=== PATIENT | female | born 1955 | race Caucasian/White ===

== ENCOUNTER 2023-12-20 08:20 | Outpatient (OUT) | payer BC, SELFPAY ==
--- NOTE | 2023-12-20 | MM_ITS ---
Patient Name: MICHELE NIX MR#: [id number] : 1955 Exam Date: 12/20/2023 Ordering Doctor: DR HAYDE DURAN M.D. RADIOLOGY REPORT PROCEDURE: MM TOMOSYNTHESIS SCREENING BI COMPARISON: MG MAMM AYUSH DIAG W CAD, 06/13/2021. MG MAMM SCREEN 3D AYUSH CAD, 06/20/2020. INDICATIONS: screening Calculator Name NCI Breast Cancer Risk Assessment Tool 5 Year Breast Cancer Risk Not Reported. Lifetime Breast Cancer Risk Not Reported. Personal Breast Cancer No Personal Ovarian Cancer No Treatments None Family Cancers None LOCATION: [facility] BREAST COMPOSITION: The breasts are heterogeneously dense,which may obscure small masses. FINDINGS: DIAGNOSTIC CATEGORY 2--BENIGN FINDING: RIGHT BREAST: No significant suspicious finding. No significant change has occurred. LEFT BREAST: No significant suspicious finding. Scattered benign-appearing calcifications are present. No significant change has occurred. RECOMMENDATIONS: ROUTINE MAMMOGRAM AND CLINICAL EVALUATION IN 12 MONTHS. PLEASE NOTE: A NORMAL MAMMOGRAM DOES NOT EXCLUDE THE POSSIBILITY OF BREAST CANCER. A CLINICALLY SUSPICIOUS PALPABLE LUMP SHOULD BE BIOPSIED. Dictated by: Rajeev Beyer M.D. on 12/23/2023 at 13:43 Approved by: Rajeev Beyer M.D. on 12/23/2023 at 14:18
== END 2023-12-20 08:21 | disposition home or self-care (01) ==
LOC: MAMMO 08:20
PROVIDERS: PCP Internal Medicine; Visit Provider Radiology Diagnostic Radiology
DX: Z12.31 Encounter for screening mammogram for malignant neoplasm of breast (principal)
CPT/HCPCS: 77063; 77067

== ENCOUNTER 2024-02-19 14:31 | Outpatient (OUT) | payer BC, SELFPAY ==
--- NOTE | 2024-02-18 14:45 | VEINCLINIC_ITS ---
Vital Signs 02/19/24 14:50 02/19/24 15:46 Height 64 ft Weight 68.039 kg BP 120/52 BP Location Left Brachial BP Position Sitting BP Cuff Size Adult BP Source Manual Cuff Respiration 16 Pulse 81 Pulse Source Monitor Pulse Oximetry (%) 98 Oxygen Delivery Method Room Air Comment The patient's blood pressure is elevated. Varicose Veins Patient is a 68 year old female in this day with c/o bilateral leg pain and edema. 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 Rajeev Olvera MD personally performed the services described in this documentation, as scribed by Tristian Connelly RN in my presence and it is both accurate and complete. ITristian RN, am scribing for, and in the presence of, Dr. Rajeev Beyer and in the presence of the patient. . knee: bilateral (patient has varicose veins to bilateral legs), calf: bilateral, ankle: bilateral and munoz: bilateral aching (left leg > right leg), burning (left leg only), cramping and dull 6 40 years Worsened in recent months: Yes standing and walking analgesics (Motrin), elevating extremities, compression stockings and exercise Reports muscle spasms of leg, edema and leg edema (left leg > right leg) History of lower extremity trauma: No Superficial thrombophlebitis: No Family history of varicose veins: yes (Patient's mother) Has patient had previous lower extremity venous surgery: No Patient has previously received the following treatment(s) for lower extremity varicose veins: Reports none Does patient have a history of : yes Does patient intend to have future pregnancies: no Has patient had lower extremity venous scan with relux testing: No Support hose used: Yes Problems walking or doing physical activity: Yes How does it affect you: pain as the work day extends Do you walk much: Yes Do you stand much: Yes Review of Systems ROS Narrative Rajeev Olvera MD personally performed the services described in this documentation, as scribed by Tristian Connelly RN in my presence and it is both accurate and complete. ITristian RN, am scribing for, and in the presence of, Dr. Rajeev Beyer and in the presence of the patient. Status of ROS 10 or more systems reviewed and unremark able except as noted in history and below Cardiovascular Reports: edema Integumentary/Breast Reports: itching and changes in skin color [facility] Medical History (Updated 02/19/24 @ 15:04 by Tristian Connelly) Back injuries ?S39.92XA - Unspecified injury of lower back, initial encounter (ICD-10) Hypercholesteremia ?E78.00 - Pure hypercholesterolemia, unspecified (ICD-10) Varicose veins of lower extremity with pain ?I83.819 - Varicose veins of unspecified lower extremity with pain (ICD-10) Surgical History H/O spinal fusion ?Z98.1 - Arthrodesis status (ICD-10) Family History (Updated 02/19/24 @ 15:08 by Tristian Connelly) Mother Family history of myocardial infarction Other Family history of cancer Family history of diabetes mellitus Family history of hypertension Varicose veins of bilateral lower extremities with pain Social History (Updated 02/19/24 @ 15:09 by Tristian Connelly) Within the past year, how often did you have a drink containing alcohol: never Score interpretation: A score less than 3 is consistent with normal alcohol consumption. Smoking status: Never smoker Non-prescribed substance use: denies use Meds Home Medications and Allergies Home Medications ?Medication ?Instructions ?Recorded ?Confirmed ?Type ibuprofen 100 mg tablet 200 mg PO TID-QID PRN pain 02/19/24 02/19/24 History Allergies Allergy/AdvReac Type Severity Reaction Status Date / Time codeine Allergy Vomiting Verified 02/19/24 15:11 morphine Allergy Vomiting Verified 02/19/24 15:11 Exam Narrative Exam Narrative: Rajeev Olvera MD personally performed the services described in this documentation, as scribed by Tristian Connelly RN in my presence and it is both accurate and complete. ITristian RN, am scribing for, and in the presence of, Dr. Rajeev Beyer and in the presence of the patient. Constitutional Documenting provider has reviewed patient's vital signs: yes Common normals: oriented x3 Cardio Peripheral pulses: dorsalis pedis pulses present Extremity Common normals: normal capillary refill General: edema Right lower extremity: lower leg Right lower leg: inspection and palpation Left lower extremity: lower leg Left lower leg: inspection and palpation Neuro Common normals: oriented x3 Assessment and Plan Assessment and Plan (1) Varicose veins of lower extremity with pain: Plan Dr. Beyer examines patient and reviews results of bilateral leg reflux u/s. Patient and Dr. Beyer create plan of care. Bilateral leg reflux u/s reveals bilateral leg great saphenous insufficiency with associated dilation, branch saphaneous truncal varicosities. Plan is for EVLT's of bilateral GSV starting with left GSV, followed by microfoam chemical ablation bilateral leg branch saphenous varicosities and lastly, sclerotherapy bilateral leg pre-hemorrhagic, reticular spider veins. IRajeev MD personally performed the services described in this documentation, as scribed by Tristian Connelly RN in my presence and it is both accurate and complete. ITristian RN, am scribing for, and in the presence of, Dr. Rajeev Beyer and in the presence of the patient.
--- NOTE | 2024-02-18 15:17 | W.VEIN ---
Discharge Plan Discharge Disposition: Home, Self-Care Outpatient Diagnostics: Endovenous Ablation 1VeinLT (Routine) Timeframe: 2 Weeks Facility: [facility] - Location: Vein Center Ordered By: Pierre Garrison VC Facility EST Comprehensive (Routine) Timeframe: 2 Weeks Facility: [facility] - Location: Vein Center Ordered By: Pierre Garrison VC EXT Venous Reflux AYUSH LMTD (Routine) Timeframe: 2 Weeks Facility: [facility] - Location: Vein Center Ordered By: Pierre Garrison Follow Up Appointments: Patient will call to move forward with vein after getting eye surgery in March of 2024 Plan of Treatment: EVLT of bilateral GSV's followed by bilateral leg microfoam chemical ablation branch saphenous varicosities, and lastly sclerotherapy bilateral leg Print Language: Kazakh Discharge Date/Time: 02/19/24 14:32
--- NOTE | 2024-02-19 14:38 | VEIN_ITS ---
Patient Name: MICHELE NIX MR#: [id number] : 1955 Exam Date: 02/19/2024 Ordering Doctor: DR HAYDE DURNA M.D. RADIOLOGY REPORT PROCEDURE: [facility] FACILITY EST COMPREHENSIVE VEIN CENTER - OFFICE VISIT INITIAL COMPARISON: None. PROGRESS NOTES: [age] year old female who presents with a 40 year history of lower extremity swelling, aching, cramping. The patient's left leg symptoms are worse than the right. There has been a progression of symptoms over past several months. This increases with prolonged standing. The patient describes an improvement with compression stockings, exercise, elevation, and fyvp-hcc-wilimim medication. The patient denies any signs and symptoms to suggest arterial ischemia. The patient describes a family history varicose veins on paternal side. The patient has drinking and smoking history of : None. Patient has a past medical history significant for varicose veins, hypercholesterolemia, prior back injury. The patient denies a history of deep venous thrombus or pulmonary embolus. See separate history and physical for medication list. No prior treatment for varicose or spider veins. Current use of compression stockings. After review of nurse notes, history and physical exam I discussed at length the pathophysiology of venous hypertension and possible treatments, therapies and strategies available. We discussed at length the importance of elevating the lower extremities above the level of the heart, increased physical activity and compression stocking use. Ultrasound venous reflux study performed today was discussed at length with the patient. The report demonstrates abnormally dilated and incompetent great saphenous veins bilaterally with associated incompetent branch saphenous varicosities. PHYSICAL EXAM: The right leg demonstrates a few dilated varicosities, scattered spider veins, no ulceration, mild edema, no skin discoloration. The left leg demonstrates a few dilated varicosities, scattered spider veins, no ulceration, moderate edema, no skin discoloration. Both thighs, legs and feet were symmetrically warm to the touch. Good posterior tibial and dorsalis pedis pulses were present bilaterally. VEIN/VC Facility EST Comprehensive IMPRESSION: 1. Bilateral lower extremity venous insufficiency 2. Bilateral lower extremity varicose veins 3. Moderate lower extremity subcutaneous edema 4. No flow significant arterial disease 5. CEAP: C3, EC, , FL PLAN: 1. Continued use of compression stockings 2. Elevated legs and increased physical activity symptomatic relief 3. Endovenous laser ablation of left great saphenous vein, right great saphenous vein. 4. Microfoam chemical ablation of bilateral branch saphenous varicosities. 5. Bilateral sclerotherapy. Nurse notes, history and physical were reviewed and confirmed, see attached forms. The nurse was present throughout the physical exam and consultation Dictated by: Rajeev Beyer M.D. on 02/19/2024 at 16:26 Approved by: Rajeev Beyer M.D. on 02/19/2024 at 16:31
--- NOTE | 2024-02-19 14:38 | VEIN_ITS ---
Patient Name: MICHELE NIX MR#: [id number] : 1955 Exam Date: 02/19/2024 Ordering Doctor: DR HAYDE DURAN M.D. RADIOLOGY REPORT PROCEDURE: VC EXT VENOUS REFLUX AYUSH LMTD COMPARISON: None. INDICATIONS: I83.813 Bilateral painful varicose veins TECHNIQUE: Duplex imaging of the lower extremity to assess the deep and superficial venous system for the presence of deep or superficial venous incompetence and to document the location and severity of disease. The study includes evaluation of the great saphenous vein (GSV), anterior accessory saphenous vein (AASV) and small saphenous vein (SSV). Patient scanned in reverse Trendelenburg and standing. FINDINGS: RIGHT LOWER EXTREMITY: Saphenofemoral Junction Reflux: Yes 6.5mm 2.0 sec GSV: Diam (mm) Reflux/ Time (sec) Proximal Thigh 5.7 Yes 2.0 Mid Thigh 4.2 Yes 0.5 Distal Thigh 3.6 Yes 1.1 Prox Calf 3.2 Yes 0.6 Mid Calf 2.1 Yes 0.9 Saphenopopliteal Junction Reflux: 2.2mm Yes 1.1 SSV: Proximal Calf 1.7 No Mid Calf 2.1 No AASV: Proximal Thigh Mid Thigh Distal Thigh Thrombi: No acute or chronic thrombus visualized Compressibility: Normal Flow: Normal Preforator: Dist/med calf 3.1mm with 0s reflux. Tech Note: Incompetent GSV. Patent varicose vein mid/med calf 3.5mm with 1.0s reflux. Patent varicose vein medial knee 3.3mm with 0s reflux. Patent varicose vein prox/med thigh 2.9mm with 1.2s reflux. LEFT LOWER EXTREMITY: Saphenofemoral Junction Reflux: Yes 7.9 mm 1.6 sec GSV: Diam (mm) Reflux/Time (sec) Proximal Thigh 6.9 Yes 1.2 Mid Thigh 3.9 Yes 1.0 Distal Thigh 3.8 Yes 1.2 Prox Calf 3.8 No Mid Calf 1.5 No Saphenopopliteal Junction Relux: 2.6 mm No SSV: Proximal Calf 0.8 N/A Mid Calf N/A AASV: Not present Proximal Thigh Mid Thigh Distal Thigh Thrombi: No acute or chronic thrombus visualized Compressibility: Normal Flow: Normal Credit Support Counselor: No perforators visualized. Tech Note: Incompetent GSV. Patent varicose vein medial knee 3.5mm with 1.1s reflux. CONCLUSION: 1. 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 Dictated by: Rajeev Beyer M.D. on 02/19/2024 at 15:39 Approved by: Rajeev Beyer M.D. on 02/19/2024 at 16:25
[2024-02-19 14:50] VITALS: BP 120/52; PULSE 81; O2SAT 98
== END 2024-02-19 14:32 | disposition home or self-care (01) ==
PROVIDERS: PCP Internal Medicine; Visit Provider Radiology Diagnostic Radiology
DX: I83.813 Varicose veins of bilateral lower extremities with pain (principal)
CPT/HCPCS: 93970; G0463

== ENCOUNTER 2024-11-23 10:32 | Outpatient (OUT) | payer BC, SELFPAY ==
--- NOTE | 2024-11-23 10:55 | PC.NURSE ---
Nursing Note Cardiac Stress Test Reviewed: Medication, allergies and patient history reviewed. Stress Test: [X ] Patient tolerated stress test well. [ ] Patient unable to tolerate walking on treadmill. Switched to Lexiscan stress test. [ ] No chest pain noted per patient [x ] Chest pain that resolved prior to leaving stress lab. [ x] No dyspnea noted. [ ] Dyspnea that resolved prior to leaving stress lab. [ x] Patient left stress lab asymptomatic and hemodynamically stable. [ ] Patient taken to the Emergency Room due to non-resolving symptoms following stress test. [ x] Patient achieved target heart rate. [ ] Patient unable to achieve target heart rate. [ ] Aminophylline administered as reversal agent to Lexiscan (Regadenoson). [ ] Nitro administered. Nursing Comments: Patient reported chest pressure during the exam. She states this is the same discomfort that has been having that has caused her to have this test. It resolved prior to leaving the stress lab
--- NOTE | 2024-11-24 12:36 | P.STRESS_ITS ---
Stress Test Stress Test Allergies Allergy/AdvReac Type Severity Reaction Status Date / Time codeine Allergy Vomiting Verified 02/19/24 15:11 morphine Allergy Vomiting Verified 02/19/24 15:11 Requesting physician: Mike Terry Procedure: This was a Treadmill stress test performed at the [facility] on 11/23/2024. The patient was attached to electrocardiographic monitoring. Baseline vital signs and ECG were obtained. The patient exercised on the treadmill according to the César protocol. Exercise time was 4 minutes and 33 seconds and the patient reached stage II of the César protocol and achieved 7 METS. The test was stopped due to target heart rate being achieved. 66 bpm and peak heart rate was 131 bpm representing 87% of maximum predicted heart rate. Resting blood pressure was 127/72 and peak blood pressure was 160/80. General Information: Reason for Stress Test: Chest pain. Cardiac History and Risk Factors: Hyperlipidemia. Resting 12 - Lead Electrocardiogram: Normal sinus rhythm, nonspecific ST segment abnormality. Stress Test: Protocol: César protocol. Exercise Capacity: Good. Blood Pressure Response: Elevated resting blood pressure, hypertensive response to exercise. Rhythm: Sinus rhythm with occasional PVCs. ST - Response: Significant ST segment depressions up to 3 mm seen in leads II, 3, aVF, V4, V5, V6. Patient Response: Chest pain with exercise that resolved at rest. Interpretation: 1. Positive treadmill exercise stress test for exercise-induced ischemic ST changes. 2. Adorno treadmill score of -14.5 is associated with high risk for long-term cardiac events.
== END 2024-11-23 10:33 | disposition home or self-care (01) ==
LOC: CARD 10:34
PROVIDERS: PCP Family Medicine; Visit Provider Family Medicine
DX: R07.9 Chest pain, unspecified (principal); R94.8 Abnormal results of function studies of other organs and systems
CPT/HCPCS: 93017

== ENCOUNTER 2025-04-08 07:31 | Outpatient (OUT) | payer BC, SELFPAY ==
--- OUTSIDE RECORDS SUMMARY | 2024-12-09 10:06 | XMS_ITS ---
Author Organization [facility] [place] Address [address] [place] [address] Care Team Providers Care Entry Level Finance Name Role Phone Emil Terry Primary Care Provider [phone] REASON FOR VISIT TCM- CALL FRIDAY Encounters Encounter Location Date Provider Diagnosis [facility] [address] [place] [phone] 12/09/2024 Emil Terry Plan Of Treatment Next Appt Details Provider Name:Emil Booker Harrison, 02:30:00 PM, [address] [place], [address], Progress Notes * BOYD, Shruthi LDOB:[birth year] (69 yo F)Acc No.[id number]:12/09/2024 Patient: Shruthi MONTOYA :1955 A ge:69 Y S ex:Female [address]:[address] [place] [address] [address] , [place], [address] * true * Date: Generated for Jean Claude linares/Shellie/eTransmitting on: 0 04/08/2025 07:33 AM EDT
--- OUTSIDE RECORDS SUMMARY | 2024-12-15 06:30 | XMS_ITS ---
Author Organization [facility] [place] Address [address] [place] [address] Care Team Providers Care Pigment Furnace Tender Name Role Phone Emil Terry Primary Care Provider [phone] Allergies Allergen (clinical drug ingredient) Drug/Non Drug Allergy documented on EMR Reaction Allergy Type Onset Date Status codeine Codeine vomiting Drug Allergy Active doxycycline Doxycycline Unknown Drug Allergy Act madeleine REASON FOR VISIT TCM d/c rehab [facility] on 12/10, Patient had triple bypass on 11/26/24- was seeing Dr Bullock and [facility], Was having pain in the RLQ last night-resolved today- thinks may be from coughing- when inAC and eating anything with milk makes he cough Medications Medication SIG (Take, Route, Frequency, Duration) Notes Start Date End Date Status Tylenol Extra strength Activ e Protonix 40 MG 1 tablet Orally Once a day for 30 days 07/23/2024 Active Cetirizine HCl 10 MG 1 tablet Orally Once a day for 30 days 12/15/2024 Active Metoclopramide HCl 10 MG 1/2 tablet befo re meals Orally four times daily 12/15/2024 Active Hyoscyamine Sulfate 0.125 MG 1-2 tabs SL SL every 4 hrs PRN abd pain PRN 07/23/2024 Active Metoprolol Tartrate 25 MG 1/2 tablet with food Orally Twice a day 12/15/2024 Active Clopidogrel Bisulfate 75 MG 1 tablet Orally Once a day 12/15/2024 Active Benzonatate 100 MG 1 capsule as needed Orally Three times a day 12/15/2024 Active Aspirin 81 MG 1 tablet Orally Once a day Active Social History Tobacco Use: Social History Observation Description Date Details (start date - stop date) Never Smoker NA - NA Tobacco Use/Smoking Question Answer Notes Patient is a nonsmoker Problems Problem Type SNOMED Code ICD Code Onset Dates Problem Status W/U Status Risk Notes Problem Coronary artery disease (16296361) Coronary artery disease (I25.10) Active confirmed Vital Signs Weight 140.6 lbs 12/15/2024 Height 64 in 12/15/2024 Blood pressure systolic 122 mm Hg 12/16/19 25 Blood pressure diastolic 70 mm Hg 025 BMI 24.13 kg/m2 12/15/2024 Encounters Encounter Location Date Provider Diagnosis [facility] [address] [place] [address] 12/15/2024 Emil Terry Coronary artery disease I25.10 and Status post coronary artery bypass grafting Z95.1 Assessments Encounter Date Diagnosis (ICD Code) Assessment Notes Treatment Notes Treatment Clinical Notes Section Notes 12/15/2024 Coronary artery disease (ICD-10 - I25.10) 12/15/2024 Status post coronary artery bypass grafting (ICD-10 - Z95.1) Plan Of Treatment Medication Medication Name Sig Start Date Stop Date Notes Cetirizine HCl 10 MG 1 tablet Orally Onc e a day for 30 days 12/15/2024 Next Appt Details Provider Name:Emil Terry, 02:30:00 PM, [address] [place], [address], Progress Notes * Shruthi NIX LDOB:[birth year] (69 yo F)Acc No.[id number]:12/15/2024 Progress Note Patient: Shruthi MONTOYA Provider: Richa Terry ([facility])MD :1955 A ge:69 Y S ex:Female Date:12/15/2024 Address:[address] [place], [place] [id number] Check In:10:19 AM ESTCheck O ut:11:37 AM EST Subjective: * Chief Complaints: * T CM d/c rehab [facility] on 12/10Patient had triple bypass on 11/26/24- was seeing Dr Bullock and [facility] having pain in the RLQ last night-resolved today- thinks may be from coughing- when in AC and eating anything with milk makes he cough * HPI: G eneral: sp byupass - doing home exercises. * ROS: E ENT: hearing changes d enies. v isual changes d enies.?non-healing mouth sores d enies. s wollen glands or neck lumps d enies. h oarseness d enies. s ore throat d enies. d ifficulty swallowing d enies. n ose bleeds d enies. n jazmin congestion d enies. e ar ache d enies. e ar discharge?denies. r inging in ears d enies. l ight sensitivity d enies. e ye pain d enies. b lurring d enies. e ye irritation d enies. d ouble vision d enies.?vision loss d enies. G eneral/Constitutional: Sweats: D enies. F atigue d enies. S leep problems d enies. A norexia d enies. M alaise d enies. W eight loss d enies.?Fatigue or Weakness d enies. F ever or Chills d enies. C ardiovascular: Shortness of Breath w/lying flat d enies. L ightheadedness/dizziness d enies. C hest tightness/ heavy pressure d enies. S welling of legs, ankles, or feet d enies. W aking up with shortness of breath d enies. C hest pain denies. P alpitations d enies. W eight gain d enies. R espiratory: Chronic or frequent cough d enies. C oughing up blood?denies. D ifficulty breathing d enies. P roductive cough d enies. S noring?denies. S hortness of breath that awakens from sleep (PND) d enies. C hest pain d enies. S putum production d enies. W heezing d enies. M usculoskeletal: Joint pain d enies. J oint Fluid d enies. B ack pain d enies. K nee pain d enies. N gladys pain d enies. J oint Stiffness d enies. M uscle cramps d enies. W eakness of muscles d enies. A rthritis d enies. M uscle aches d enies. P ain in shoulder(s) d enies. S wollen joints d enies. * Active Problem List M20.42 Hammertoe of left fo ot Modified On:12/03/2022W/U Status:confirmed K21.9 GERD (gastroesophage al reflux disease) Modified On:07/23/2024W/U Status:confirmed R10.9 Abdominal pain Modified On:07/23/2024/U Status:confirmed I25.10 Coronary artery dise ase Modified On:12/15/2024W/U Status:confirmed * Medical History: * Surgical History: b ack surgery eyelid lift Coronary Angiogrpahy- IABP insertion * Hospitalization/Major Diagno stic Procedure: D enies Past Hospitalization * Family History: F ather: , diagnosed with Unspecified heart disease. B rother(s): alive, diagnosed with Unspecified heart disease. S ister(s): alive, breast cancer, diagnosed with Other malignant neoplasm of unspecified site. S on(s): alive, hyperlipidemia. M other: diagnosed with Unspecified heart disease. 1 brother(s) , 2 sister(s) . 1 son(s) . . * Social History: T obacco Use: T obacco Use/Smoking P atient is a n onsmoker * Medications: T akingAspirin 81 MG Tablet Chewable 1 tablet Orally Once a day Benzonatate 100 MG Capsule 1 capsule as needed Orally Three times a day Clopidogrel Bisulfate 75 MG Tablet 1 tablet Orally Once a day Hyoscyamine Sulfate 0.125 MG Tablet 1-2 tabs SL SL every 4 hrs PRN abd pain , Notes to Pharmacist: PRNMetoclopramide HCl 10 MG Tablet 1/2 tablet before meals Orally four times daily Metoprolol Tartrate 25 MG Tablet 1/2 tablet with food Orally Twice a day Protonix(Pantoprazole Sodium) 40 MG Tablet Delayed Release 1 tablet Orally Once a day Tylenol , Notes to Pharmacist: Extra strengthTaking Aspirin 81 MG Tablet Chewable 1 tablet Orally Once a day Taking Benzonatate 100 MG Capsule 1 capsule as needed Orally Three times a day Taking Clopidogrel Bisulfate 75 MG Tablet 1 tablet Orally Once a day Taking Hyoscyamine Sulfate 0.125 MG Tablet 1-2 tabs SL SL every 4 hrs PRN abd pain , Notes to Pharmacist: PRNTaking Metoclopramide HCl 10 MG Tablet 1/2 tablet before meals Orally four times daily Taking Metoprolol Tartrate 25 MG Tablet 1/2 tablet with food Orally Twice a day Taking Protonix(Pantoprazole Sodium) 40 MG Tablet Delayed Release 1 tablet Orally Once a day Taking Tylenol , Notes to Pharmacist: Extra strengthDiscontinuedIbuprofen 600 MG Tablet 1 tablet with food or milk as needed Orally every 6 hrs prn pain Sertraline HCl 25 MG Tablet 1 tablet Orally Once a day Medication List reviewed and reconciled with the patientDiscontinued Ibuprofen 600 MG Tablet 1 tablet with food or milk as needed Orally every 6 hrs prn pain Discontinued Sertraline HCl 25 MG Tablet 1 tablet Orally Once a day Medication List reviewed and reconciled with the patient * Allergies: C odeine: vomiting - AllergyDoxycyclineno[Allergies Verified] Objective: * Vitals: W t:140.6lbs, Ht: 64 in, BP:122/70mm Hg, BMI:24.13Index, Ht-cm: 162.56 cm, Wt-k.78 kg. * Examination: P hysical Exam: GENERAL: w ell developed, well nourished, in no acute distress. HEAD: n ormocephalic/atraumatic. EYES: p upils equal, round and reactive to light, conjunctivae and sclerae normal. EARS: n o deformity or lesion of external ear, canals and TM appear normal bilaterally, TM's intact, not inflamed with normal light reflex, hearing grossly normal to conversational speech. NOSE: n o deformity, discharge, inflammation, or lesions.? MOUTH: m ucous membranes moist, normal oropharynx and posterior pharynx without lesions or exudates, tongue normal, dentition normal. NECK: n gladys supple, no masses or palpable cervical nodes, trachea midline, thyroid without nodules, masses, tenderness, or enlargement. CHEST: n o chest wall deformity, no chest wall tenderness.? LUNGS: n ormal respiratory effort and clear to auscultation, no wheezes, rales, or rhonchi, good air exchange. CARDIO: r egular rate and rhythm, normal S1 and S2, nor murmur, rub, or gallop. PULSES: n ormal capillary refill. ABDOMEN: s oft, non-distended, non-tender, no masses. MUSCULOSKELETAL: n o deformity or scoliosis noted, normal range of motion, joints normal, no erythema, edema, effusion, or ecchymosis. EXTREMITY: n o clubbing, cyanosis, edema, or deformity with normal ROM in both upper and lower bilateral extremities. NEUROLOGIC: g rossly normal. SKIN: n o rashes, ulcerations, or suspicious lesions. LYMPH NODES: n o cervical adenopathy, nodes normal. MENTAL STATUS: a lert and oriented x3, normal mood and affect. Assessment: * Assessment: 1. C oronary artery disease - I25.10 (Primary) 2 . S tatus post coronary artery bypass grafting - Z95.1 Plan: * Treatment: * Procedure Codes: * * Sign off status: Completed Visit Status: C HK (Check Out) true * Provider: Richa Terry ([facility])MD Date: 0 12/15/2024 Generated for Printi ng/Fagabinog/eTransmitting on: 0 04/08/2025 07:34 AM EDT History and Physical Notes * HPI (History of Present Illness) Category Sub-Category Detail Notes Category Not es General sp byupass - doing home exercises Examination Category Sub-Category Detail Notes Category Not es Physical Exam GENERAL: well developed, well nourished, in no acute distress HEAD: normocephalic/atraum atic EYES: pupils equal, round and reactive to light, conjunctivae and sclerae normal EARS: no deformity or lesi on of external ear, canals and TM appear normal bilaterally, TM's intact, not inflamed with normal light reflex, hearing grossly normal to conversational speech NOSE: no deformity, discha rge, inflammation, or lesions MOUTH: mucous membranes marcel[address] st, normal oropharynx and posterior pharynx without lesions or exudates, tongue normal, dentition normal NECK: neck supple, no mass es or palpable cervical nodes, trachea midline, thyroid without nodules, masses, tenderness, or enlargement CHEST: no chest wall deform ity, no chest wall tenderness LUNGS: normal respiratory e ffort and clear to auscultation, no wheezes, rales, or rhonchi, good air exchange CARDIO: regular rate and rhy thm, normal S1 and S2, nor murmur, rub, or gallop PULSES: normal capillary ref ill ABDOMEN: soft, non-distended, non-tender, no masses RECTAL: MUSCULOSKELETAL: no deformity or scol iosis noted, normal range of motion, joints normal, no erythema, edema, effusion, or ecchymosis EXTREMITY: no clubbing, cyanosi s, edema, or deformity with normal ROM in both upper and lower bilateral extremities NEUROLOGIC: grossly normal SKIN: no rashes, ulceratio ns, or suspicious lesions LYMPH NODES: no cervical adenopat hy, nodes normal MENTAL STATUS: alert and oriented x 3, normal mood and affect
--- OUTSIDE RECORDS SUMMARY | 2024-12-15 07:30 | XMS_ITS ---
Author Organization [facility] in [place] Address [address] [place] [address] Care Team Providers Care Parts Assembler Name Role Phone Emil Terry Primary Care Provider REASON FOR VISIT cholesterol medication Medications Medication SIG (Take, Route, Frequency, Duration) Notes Start Date End Date Status Atorvastatin Calcium 20 MG 1 tablet Oral ly Once a day for 30 days 12/17/2024 Active Encounters Encounter Location Date Provider Diagnosis [facility] [address] [place] [address] 12/15/2024 Emil Terry Plan Of Treatment Medication Medication Name Sig Start Date Stop Date Notes Atorvastatin Calcium 20 MG 1 tablet Oral ly Once a day for 30 days 12/17/2024 Next Appt Details Provider Name:Emil Terry, 02:30:00 PM, [address] [place], [address], Progress Notes * BOYD, Shruthi LDOB:[birth year] (69 yo F)Acc No.[id number]:12/15/2024 Patient: Shruthi MONTOYA :1955 A ge:69 Y S ex:Female Address:[address] [place] [address] [address] , [place], [address] * Refills Start Atorvastatin Calcium Tablet, 20 MG, Orally, 60, 1 tablet, Once a day, 30 days, Refills=11 * true * Date: Generated for Jean Claude linares/Shellie/Marioitting on: 0 04/08/2025 07:34 AM EDT
--- OUTSIDE RECORDS SUMMARY | 2025-02-02 07:18 | XMS_ITS ---
Author Organization [facility] in [place] Address [address] [place] [address] Care Team Providers Care Engineering Consultant Name Role Phone Emil Terry Primary Care Provider REASON FOR VISIT FYI Encounters Encounter Location Date Provider Diagnosis [facility] [address] [place] [address] 02/02/2025 Emil Terry Plan Of Treatment Next Appt Details Provider Name:Emil Booker Harrison, 02:30:00 PM, [address] [place], [address], Progress Notes * BOYD, Shruthi LDOB:[birth year] (69 yo F)Acc No.[id number]:02/02/2025 Patient: Shruthi MONTOYA :1955 A ge:69 Y S ex:Female Address:[address] [place] [address] , [place], [address] * true * Date: Generated for Printi ng/Faxing/eTransmitting on: 0 04/08/2025 07:34 AM EDT
--- OUTSIDE RECORDS SUMMARY | 2025-04-06 10:00 | XMS_ITS ---
Author Organization [facility] [place] Address [address] [place] [address] Care Team Providers Care Legger Press Operator Name Role Phone Emil Terry Primary Care Provider Allergies Allergen (clinical drug ingredient) Drug/Non Drug Allergy documented on EMR Reaction Allergy Type Onset Date Status codeine Codeine vomiting Drug Allergy Active doxycycline Doxycycline Unknown Drug Allergy Act madeleine REASON FOR VISIT 4 month f/u Medications Medication SIG (Take, Route, Frequency, Duration) Notes Start Date End Date Status Aspirin 81 MG 1 tablet Orally Once a day Active Atorvastatin Calcium 20 MG 1 tablet Orally Once a day for 30 days 12/17/2024 Active Clopidogrel Bisulfate 75 MG 1 tablet Orally Once a day 12/15/2024 Active Cetirizine HCl 10 MG 1 tablet Orally Once a day for 30 days 12/15/2024 Active Cyclobenzaprine HCl 10 MG 1 tablet Orally tid for 30 days 04/06/2025 Active Tylenol Extra strength Activ e Protonix 40 MG 1 tablet Orally Once a day for 30 days 07/23/2024 Active Metoprolol Tartrate 25 MG 1 tablet with food Orally Twice a day 12/15/2024 Active Ibuprofen 600 MG 1 tablet with food or milk as needed Orally every 8 hrs 04/06/2025 Active Hyoscyamine Sulfate 0.125 MG 1-2 tabs SL SL every 4 hrs PRN abd pain PRN 07/23/2024 Active Social History Tobacco Use: Social History Observation Description Date Details (start date - stop date) Never Smoker NA - NA Tobacco Use/Smoking Question Answer Notes Patient is a nonsmoker AUDIT-C (Standard) Question Answer Notes Did you have a drink containing alcohol in the p ast year? No Points 0 Interpretation Negative Problems Problem Type SNOMED Code ICD Code Onset Dates Problem Status W/U Status Risk Notes Problem Hypertension (02512322) Hypertension (I10) Active confirmed Vital Signs Weight 139.0 lbs 04/06/2025 Height 64 in 04/06/2025 Blood pressure systolic 144 mm Hg 04/06/20 25 Blood pressure diastolic 82 mm Hg 025 BMI 23.86 kg/m2 04/06/2025 Encounters Encounter Location Date Provider Diagnosis [facility] [address] [place] [address] 04/06/2025 Emil Terry GERD (gastroesophage al reflux disease) K21.9 ; Coronary artery disease I25.10 and Hypertension I10 Assessments Encounter Date Diagnosis (ICD Code) Assessment Notes Treatment Notes Treatment Clinical Notes Section Notes 04/06/2025 GERD (gastroesophageal reflux disease) (ICD-10 - K21.9) 04/06/2025 Coronary artery disease (ICD-10 - I25.10) 04/06/2025 Hypertension (ICD-10 - I10) Plan Of Treatment Medication Medication Name Sig Start Date Stop Date Notes Cyclobenzaprine HCl 10 MG 1 tablet Orally tid for 30 days 04/06/2025 Ibuprofen 600 MG 1 tablet with food o r milk as needed Orally every 8 hrs 04/06/2025 Next Appt Details Provider Name:Emil Terry, 02:30:00 PM, [address] [place], [address], Progress Notes * BOYDShruthi LDOB:[birth year] (69 yo F)Acc No.[id number]:04/06/2025 Progress Note Patient: Shruthi MONTOYA Provider: Richa Terry ([facility])MD :1955 A ge:69 Y S ex:Female Date:04/06/2025 Address:[address] [place], [place] [id number] Check In:01:57 PM ESTCheck O ut:02:43 PM EST Subjective: * Chief Complaints: * 4 month f/u * HPI: G eneral: HTN - stable at home GERD - meds helping back to work CAD - reviewed meds - Repatha. * ROS: E ENT: hearing changes d [...] M20.42 Hammertoe of left fo ot Modified On:12/03/2022/U Status:confirmed K21.9 GERD (gastroesophage al reflux disease) Modified On:07/23/2024/U Status:confirmed R10.9 Abdominal pain Modified On:07/23/2024/U Status:confirmed I25.10 Coronary artery dise ase Modified On:12/15/2024/U Status:confirmed I10 Hypertension Modified On:04/06/2025/U Status:confirmed * Medical History: * Surgical History: b ack surgery eyelid lift Coronary Angiogrpahy- IABP insertion CABG x3 * Hospitalization/Major Diagno stic Procedure: D enies [...] Use/Smoking P atient is a n onsmoker D rug/Alcohol: A EMILY-C (Standard) D id you have a drink containing alcohol in the past year? N o P oints 0 I nterpretation N egative * Medications: T akingAspirin 81 MG Tablet Chewable 1 tablet Orally Once a day Atorvastatin Calcium 20 MG Tablet 1 tablet Orally Once a day Cetirizine HCl 10 MG Tablet 1 tablet Orally Once a day Clopidogrel Bisulfate 75 MG Tablet 1 tablet Orally Once a day Hyoscyamine Sulfate 0.125 MG Tablet 1-2 tabs SL SL every 4 hrs PRN abd pain , Notes to Pharmacist: PRNMetoprolol Tartrate 25 MG Tablet 1 tablet with food Orally Twice a day Protonix(Pantoprazole Sodium) 40 MG Tablet Delayed Release 1 tablet Orally Once a day Tylenol , Notes to Pharmacist: Extra strengthTaking Aspirin 81 MG Tablet Chewable 1 tablet Orally Once a day Taking Atorvastatin Calcium 20 MG Tablet 1 tablet Orally Once a day Taking Cetirizine HCl 10 MG Tablet 1 tablet Orally Once a day Taking Clopidogrel Bisulfate 75 MG Tablet 1 tablet Orally Once a day Taking Hyoscyamine Sulfate 0.125 MG Tablet 1-2 tabs SL SL every 4 hrs PRN abd pain , Notes to Pharmacist: PRNTaking Metoprolol Tartrate 25 MG Tablet 1 tablet with food Orally Twice a day Taking Protonix(Pantoprazole Sodium) 40 MG Tablet Delayed Release 1 tablet Orally Once a day Taking Tylenol , Notes to Pharmacist: Extra strengthDiscontinuedBenzonatate 100 MG Capsule 1 capsule as needed Orally Three times a day Metoclopramide HCl 10 MG Tablet 1/2 tablet before meals Orally four times daily Medication List reviewed and reconciled with the patientDiscontinued Benzonatate 100 MG Capsule 1 capsule as needed Orally Three times a day Discontinued Metoclopramide HCl 10 MG Tablet 1/2 tablet before meals Orally four times daily Medication List reviewed and reconciled with the patient * Allergies: C odeine: vomiting - AllergyDoxycyclineno[Allergies Verified] Objective: * Vitals: W t:139.0lbs, Ht: 64 in, BP:144/82mm Hg, BMI:23.86Index, Ht-cm: 162.56 cm, Wt-k.05 kg. * Examination: P hysical Exam: GENERAL: [...] mood and affect. Assessment: * Assessment: 1. G ERD (gastroesophageal reflux disease) - K21.9 (Primary) 2 . C oronary artery disease - I25.10 3 . H ypertension - I10 Plan: * Treatment: * Procedure Codes: * * Sign off status: Completed Visit Status: C HK (Check Out) true * Provider: Richa Terry ([facility])MD Date: 0 04/06/2025 Generated for Printi ng/Faxing/eTransmitting on: 0 04/08/2025 07:34 AM EDT History and Physical Notes * HPI (History of Present Illness) Category Sub-Category Detail Notes Category Not es General HTN - stable at home GERD - meds helping back to work CAD - reviewed meds - Repatha Examination Category Sub-Category Detail Notes Category Not [...]
--- OUTSIDE RECORDS SUMMARY | 2025-04-08 07:34 | XMS_ITS | Encounter Summary ---
Author Organization [facility] Address [address] [place] [address] Care Team Providers Care Linen Tech Name Role Phone Shaikh DIANE Guardado Primary Care Provider [phone] Juan Contreras MD Primary Care Provider [phone] Janel Coughlin NP Unavailable Shaikh DIANE Guardado Unavailable [phone] Encounter Details Date Type Department Care Team (Late st Contact Info) Description 12/23/2023 Orders Only [facility] [address] [place] [phone] Shaikh Guardado MD [address] [place] [id number] Social History Tobacco Use Types Packs/Day Years Used Date Smoking Tobacco: Never Assessed Comments Unknown Sex and Gender Information Value Date Recorded Sex Assigned at Not on file Legal Sex Female 7:34 PM EDT Gender Identity Not on file Sexual Orientation Not on file documented as of this encounter Plan of Treatment Upcoming Encounters Date Type Department Care Team (Late st Contact Info) Description 07/20/2025 2:00 PM EST Office Visit [facility] [address] [place] [phone] China Armstrong MD [address] [place] [address] documented as of this encounter Procedures Procedure Name Priority Date/Time Associated Diagnosis Comments MM SCREENING MAMM WITH 3D JAVI - US AND ADDITIONAL Routine 12/23/2023 2:24 PM EDT documented in this encounter Results * MM SCREENING MAMM WITH 3D JAVI - US AND ADDITIONAL (12/23/2023 2:24 PM EDT) Anatomical Region Laterality Modality Radiographic Bessy ging us Shaikh Debby CONTRERAS IMG XR PROCEDURES Final Result documented in this encounter Visit Diagnoses Not on filedocumented in this encounter Care Teams Linen Tech Relationship Specialty Start Date End Date Shaikh Guardado MD [address] [place] [phone] PCP - General Internal Medicine 01/22/24 04/27/24 Juan Contreras MD [address] [place] [phone] PCP - General Family Medicine 04/28/24 09/07/24 Shaikh Guardado MD [address] [place] [phone] PCP - [facility] 10/02/24 Janel Coughlin NP [address] [place] [phone] Nurse Practitioner Family Medicine 04/28/24 09/07/24 documented as of this encounter
--- OUTSIDE RECORDS SUMMARY | 2025-04-08 07:34 | XMS_ITS | Clinical Summary ---
Author Organization [facility] tem Address [id number] [place] [address] Care Team Providers Care Director Of Corporate Sales Name Role Phone Shaikh DIANE Guardado Primary Care Provider [phone] Allergies Active Allergy Reactions Criticality Noted Date Comments Codeine Vomiting 04/01/2022 Propoxyphene 07/25/2018 Medications famotidine (PEPCID) 10 mg tablet Take 1 tablet (10 mg total) by mouth in the morning and 1 tablet (10 mg total) before bedtime. Active lidocaine 5 % gelIndications:H emorrhoids, unspecified hemorrhoid type Apply 1 Application topically as needed (Please apply topically to anus as needed.). 30 g 4 Active Active Problems No known active problems Immunizations Immunization Administration Dates Next Due COVID-19, mRNA, LNP-S, PF, 100mcg/0.5mL Dose 03/2021,10/12/2020 Family History Medical History Relation Name Comments Heart attack Brother Heart disease Brother Heart disease Father Prostate cancer Father Diabetes Maternal Aunt Alzheimer's disease Mother Heart disease Mother Rheum arthritis Paternal Grandmother Breast cancer Sister Relation Name Status Comments Brother Alive Father Maternal Aunt Mother Paternal Grandmother Sister Alive Social History Tobacco Use Types Packs/Day Years Used Date Smoking Tobacco: Never Smokeless Tobacco: Never Tobacco Cessation:Counseling Given: Not Answered Alcohol Use Standard Drinks/Week Comments No 0 (1 standard drink = 0.6 oz pur e alcohol) AUDIT-C Answer Date Recorded Frequency of Alcohol Consumption Never 07/25/2018 Average Number of Drinks Not on file 018 Frequency of Binge Drinking Not on file 07/05 Childcare Answer Date Recorded Childcare Unknown 01/13/2019 Employment Answer Date Recorded Employment Unknown 01/13/2019 Purpose - Life Answer Date Recorded Purpose and direction in life Unknown Comments Unknown Sex and Gender Information Value Date Recorded Sex Assigned at Not on file Legal Sex Female 11:21 AM EDT Gender Identity Not on file Sexual Orientation Not on file Last Filed Vital Signs Vital Sign Reading Time Taken Comments Blood Pressure 131/63 07/09/2024 1:32 PM EST Pulse 62 05/16/2022 10:50 AM EDT Temperature 36.4 C (97.6 F) 05/16/2022 7:55 AM EDT Respiratory Rate 14 05/16/2022 10:50 AM EDT Oxygen Saturation 99% 05/16/2022 10:50 AM EDT Inhaled Oxygen Concentration - - Weight 67.1 kg (148 lb) 07/09/2024 1:32 PM EST Height 167.6 cm (5' 6 ) 07/09/2024 1:32 PM EST Body Mass Index 23.89 07/09/2024 1:32 PM EST Plan of Treatment Health Maintenance Due Date Last Done Comments Depression Screening 1966 DTaP,Tdap and Td Vaccines (1 - Tdap) 1973 Zoster (Shingles) Vaccine (1 of 2) 2004 Fall Risk Screening 2019 COVID-19 Vaccine ( season) 04/04/202403/2021, 10/12/2020 Influenza Vaccine 04/04/2025 09/13/2019 Adult BMI Screening 07/09/2025 07/09/2024 Tobacco Screening 07/09/2025 07/09/2024 Colonoscopy 05/16/2032 05/16/2022, 05/16/2022 Medical Devices Not on file Procedures Procedure Name Priority Date/Time Associated Diagnosis Comments COLONOSCOPY 05/16/2022 10:03 AM EDT from Last 3 Months or Most Recently Relevant to Health Maintenance Results * Colonoscopy (05/16/2022 10:03 AM EDT) 05/16/2022 10:0 3 AM EDT Narrative PM CARDIOVASCULAR - 05/16/2022 10:[address] [facility] Patient Name: Shruthi Cristobal Procedure Date No Time: 05/16/2022 CSN : [id number] Date of : 1955 Admit Type: Ambulatory Age: 66 Room: [place] [address] Gender: Female Note Status: Finalized Attending MD: Mario Frederick DO Procedure: Colonoscopy Indications: Rectal bleeding Providers: Mario Frederick DO Referring MD: Mario Frederick DO Medicines: Propofol per Anesthesia Complications: No immediate complications. Procedure: After I obtained informed consent, the scope was passed under direct vision. Throughout the procedure, the patient's blood pressure, pulse, and oxygen saturations were monitored continuously.The colonoscopy was performed without difficulty. The patient tolerated the procedure well. The quality of the bowel preparation was good. The OLYMPUS PCF-H190DL # [id number] PEDIATRIC COLONOSCOPE was introduced through the anus and advanced to the cecum, identified by appendiceal orifice and ileocecal valve. The OLYMPUS PCF-[id number] # [id number] PEDIATRIC COLONOSCOPE was introduced through the anus and advanced to. Findings: The perianal and digital rectal examinations were normal. The colon (entire examined portion) appeared normal. The exam was otherwise without abnormality on direct and retroflexion views. Estimated Blood Loss: Estimated blood loss: none. Impression: - The entire examined colon is normal. - The examination was otherwise normal on direct and retroflexion views. - No specimens collected. Recommendation: - Discharge patient to home. - Discharge patient to home. - Patient has a contact number available for emergencies. The signs and symptoms of potential delayed complications were discussed with the patient. Return to normal activities tomorrow. Written discharge instructions were provided to the patient. - Repeat colonoscopy in 10 years for screening purposes. - Return to my office PRN. Procedure Code(s): --- Professional --- 60392, Colonoscopy, flexible; diagnostic, including collection of specimen(s) by brushing or washing, when performed (separate procedure) Diagnosis Code(s): --- Professional --- K62.5, Hemorrhage of anus and rectum CPT copyright 2020 [employer]. All rights reserved. The codes documented in this report are preliminary and upon loan review manager review may be revised to meet current compliance requirements. DO Mario Sneed DO 05/16/2022 10:33:06 AM Number of Addenda: 0 Note Initiated On: 05/16/2022 10:03 AM Procedure Note Mario Frederick DO - 05/16/2022 [facility] Patient Name: Shruthi Cristobal Procedure Date No Time: 05/16/2022 CSN : [id number] Date of : 1955 Admit Type: Ambulatory Age: 66 Room: [place] [address] Gender: Female Note Status: Finalized Attending MD: Mario Frederick DO Procedure: Colonoscopy Indications: Rectal bleeding Providers: Mario Frederick DO Referring MD: Mario Frederick DO Medicines: Propofol per Anesthesia Complications: No immediate complications. Procedure: After I obtained informed consent, the scope was passed under direct vision. Throughout theprocedure, the patient's blood pressure, pulse, and oxygen saturations were monitored continuously.The colonoscopy was performed without difficulty. The patient tolerated the procedure well. The qualityof the bowel preparation was good. The OLYMPUSPCF-H190DL # [id number] PEDIATRIC COLONOSCOPE was introducedthrough the anus and advanced to the cecum, identified by appendiceal orifice and ileocecal valve. TheOLYMPUS PCF-H190DL # [id number] PEDIATRIC COLONOSCOPE was introduced through the anus and advanced to. Findings: The perianal and digital rectal examinations were normal. The colon (entire examined portion) appeared normal. The exam was otherwise without abnormality on direct and retroflexion views. Estimated Blood Loss: Estimated blood loss: none. Impression: - The entire examined colon is normal. - The examination was otherwise normal on directand retroflexion views. - No specimens collected. Recommendation: - Discharge patient to home. - Discharge patient to home. - Patient has a contact number available for emergencies. The signs and symptoms of potential delayed complications were discussed with thepatient. Return to normal activities tomorrow. Written discharge instructions were provided to thepatient. - Repeat colonoscopy in 10 years for screening purposes. - Return to my office PRN. Procedure Code(s): --- Professional --- 89805, Colonoscopy, flexible; diagnostic, including collection of specimen(s) by brushing or washing,when performed (separate procedure) Diagnosis Code(s): --- Professional --- K62.5, Hemorrhage of anus and rectum CPT copyright 2020 [employer]. All rights reserved. The codes documented in this report are preliminary and upon loan review manager reviewmay be revised to meet current compliance requirements. DO Mario Sneed DO 05/16/2022 10:33:06 AM Number of Addenda: 0 Note Initiated On: 05/16/2022 10:03 AM Mario Frederick DO GI PROCEDURE ORDERABLES Fin al Result PM CARDIOVASCULAR from Last 3 Months or Most Recently Relevant to Health Maintenance Insurance Care Teams Director Of Corporate Sales Relationship Specialty Start Date End Date Shaikh Guardado MD PCP - General Internal Medicine 01/21/22
--- OUTSIDE RECORDS SUMMARY | 2025-04-08 07:34 | XMS_ITS | Encounter Summary ---
Author Organization [facility] Address [address] [place] [address] Care Team Providers Care Sign Board Erector Name Role Phone Mike Terry MD Primary Care Provider [phone] Encounter Details Date Type Department Care Team (Late st Contact Info) Description 12/03/2024 Lab Requisition [facility] [address] [place] [address] Kunal Vu MD [address] [place] [address] Social History Tobacco Use Types Packs/Day Years Used Date Smoking Tobacco: Never Smokeless Tobacco: Never Alcohol Use Standard Drinks/Week Comments Never 0 (1 standard drink = 0.6 oz pur e alcohol) [facility] Utilities Answer Date Recorded In the past 12 months has e electric, gas, oil, or water company threatened to shut off services in your home? No 11/24/2024 Humiliation, Afraid, Rape, and Kick questionnair e Answer Date Recorded Within the last year, have y ou been afraid of your partner or ex-partner? No 11/24/2024 Emotionally Abused Not on file 11/24/2024 Physically Abused Not on file 11/24/2024 Sexually Abused Not on file 11/24/2024 Overall Financial Resource Strain (CARDIA) Answe r Date Recorded How hard is it for you to pa y for the very basics like food, housing, medical care, and heating? Not hard at all 11/24/2024 Transportation Answer Date Recorded In the past 12 months, has l ack of transportation kept you from medical appointments or from getting medications? No 11/24/2024 Lack of Transportation (Non-Medical) Not on file 11/24/2024 Housing Stability Vital Sign Answer Favian e Recorded In the last 12 months, was t here a time when you were not able to pay the mortgage or rent on time? No 11/24/2024 Number of Times Moved in the Last Year Not on fi le 11/24/2024 At any time in the [facility], were you homeless or living in a longterm (including now)? No 11/24/2024 Hunger Vital Sign Answer Date Recorded Within the past 12 months, y ou worried that your food would run out before you got the money to buy more. Never true 11/25/19 25 Ran Out of Food in the Last Year Not on file 11/24/2024 Comments Unknown Sex and Gender Information Value Date Recorded Sex Assigned at Not on file Legal Sex Female 1:11 PM EDT Gender Identity Not on file Sexual Orientation Not on file documented as of this encounter Plan of Treatment Not on file documented as of this encounter Procedures Procedure Name Priority Date/Time Associated Diagnosis Comments CBC WITH AUTO DIFFERENTIAL Routine 12/03/2024 3:18 AM EDT CBC AND DIFFERENTIAL Routine 12/03/2024 3:18 AM EDT COMPREHENSIVE METABOLIC PANEL Routine 12/03/2024 3:18 AM EDT documented in this encounter Results * (ABNORMAL) CBC auto differential (12/03/2024 3:18 AM EDT) Auto WBC 9.53 4.00 - 10.60 10*3/uL 12/03/2024 5:53 AM EDT [facility] RBC 3.37(L) 3.80 - 5.00 10*6/uL 12/03/2024 5:53 AM EDT [facility] Hemoglobin 9.6(L) 12.0 - 15.0 g/dL 12/03/2024 5:53 AM EDT [facility] Hematocrit 30.8(L) 36.0 - 45.0 % 12/03/2024 5:53 AM EDT [facility] MCV 91.4 82.0 - 98.0 fL 12/03/2024 5:53 AM EDT [facility] MCH 28.5 27.0 - 33.0 pg 12/03/2024 5:53 AM EDT [facility] MCHC 31.2(L) 32.0 - 35.0 g/dL 12/03/2024 5:53 AM EDT [facility]) RDW 13.4 11.5 - 15.0 % 12/03/2024 5:53 AM EDT [facility]) Neutrophils % 58.6 40.0 - 72.0 % 12/03/2024 5:53 AM [facility]) Lymphocytes % 26.1 20.0 - 45.0 % 12/03/2024 5:53 AM EDT [facility]) Monocytes % 11.1 5.0 - 12.0 % 12/03/2024 5:53 AM EDT [facility]) Eosinophils % 1.3 0.0 - 6.0 % 12/03/2024 5:53 AM EDT [facility]) Basophils % 0.5 0.0 - 1.0 % 12/03[facility]2024 5[facility] Neutrophils Absolute 5.58 1.60 - 7.60 10*3/uL 12/03/2024 5:53 AM EDT [facility]) Lymphocytes Absolute 2.49 1.20 - 4.00 10*3/uL 12/03/2024 5:53 AM [facility]) Monocytes Absolute 1.06(H) 0.10 - 1.00 10*3/uL 12/03/2024 5:53 AM EDT [facility] Eosinophils Absolute 0.12 0.00 - 0.50 10*3/uL 12/03/2024 5:53 [facility] Basophils Absolute 0.05 0.00 - 0.20 10*3/uL 12/03/2024 5:53 AM EDT [facility]) Platelets 400 150 - 400 10*3/uL 12/03/2024 5:53 AM EDT [facility] nRBC % 0.0 0 % 12/03/2024 5:53 AM EDT [facility] Immature Granulocytes % 2.4(H) 0.0 - 1.0 % 12/03/2024 5:53 AM EDT [facility]) Immature Granulocytes Absolute 0.23(H) 0.00 - 0.20 10*3/uL 12/03/2024 5:53 AM EDT [facility] Blood Venous blood specimen / Unknown Venipuncture / Unknown 12/03/2024 3:18 AM EDT 12/03/2024 5:31 AM EDT us Kunal Vu MD LAB BLOOD ORDERABLES Final Resu lt [facility] [address] [place] [address] * (ABNORMAL) Comprehensive metabolic panel (12/03/2024 3:18 AM EDT) Sodium 139 136 - 145 mmol/L 12/03/2024 6:19 AM EDT [facility] Potassium 4.3 3.5 - 5.1 mmol/L 12/03/2024 6:19 AM EDT [facility] Chloride 102 98 - 107 mmol/L 12/03/2024 6:19 AM EDT [facility] CO2 35(H) 21 - 31 mmol/L 12/03/2024 6:19 AM EDT [facility] Anion Gap 6(L) 7 - 20 mmol/L 12/03/2024 6:19 AM EDT [facility] BUN 16 7 - 25 mg/dL 12/03/2024 6:19 AM EDT [facility] Creatinine 0.82 0.60 - 1.20 mg/dL 12/03/2024 6:19 AM [facility]) BUN/Creatinine Ratio 19.5 05/0 09/2024 6:19 AM [facility] Glucose 96 70 - 100 mg/dL 12/03/2024 6:19 AM [facility] Calcium 8.6 8.6 - 10.3 mg/dL 12/03/2024 6:19 AM [facility] AST 48(H) 13 - 39 U/L 12/03/2024 6:19 AM [facility]) ALT (SGPT) 37 7 - 52 U/L 12/03/2024 6:19 AM [facility] Alkaline Phosphatase 68 34 - 104 U/L 12/03/2024 6:19 AM [facility] Total Protein 5.5(L) 6.0 - 8.3 g/dL 12/03/2024 6:19 AM [facility] Albumin 3.0(L) 3.5 - 5.7 g/dL 12/03/2024 6:19 AM [facility] Total Bilirubin 0.4 0.3 - 1.0 mg/dL 12/03/2024 6:19 AM [facility]) eGFR 76.9 >60.0 mL/min/1. 73m*2 12/03/2024 6:19 AM [facility] Comment:The [facility] s estimated glomerular filtration rate (eGFR) will no longer include consideration of race in its calculation. The [employer] s eGFR Task Force developed new recommendations for the estimation of the glomerular filtration rate in the [place] They recommend immediate implementation of the new equation refit without the race variable in all laboratories because the calculation does not include race. In addition to not including race in the calculation and reporting, it included diversity in its development, and has acceptable performance characteristics and potential consequences that do not disproportionately affect any one group of individuals. Blood Venous blood specimen / Unknown Venipuncture / Unknown 12/03/2024 3:18 AM EDT 12/03/2024 5:31 AM EDT us Kunal Vu MD LAB BLOOD ORDERABLES Final Resu lt [facility] [address] [place], [place] [id number] documented in this encounter Visit Diagnoses Not on filedocumented in this encounter Additional Health Concerns Infection Onset Date Last Indicated Resolved Time MRSA 11/26/2024 11/26/2024 documented as of this encounter Care Teams Sign Board Erector Relationship Specialty Start Date End Date Mike Terry MD [address] [facility] [address] [address] PCP - General Family Medicine 11/24/24 documented as of this encounter
--- OUTSIDE RECORDS SUMMARY | 2025-04-08 07:34 | XMS_ITS | Clinical Summary ---
Author Organization [facility] Address [address] [place] [address] Care Team Providers Care Paste Up Artist Name Role Phone Unavailable Primary Care Provider Unavailabl e Allergies Active Allergy Reactions Criticality Noted Date Comments Codeine Rash,GI intolerance Low 04/01/2022 Medications rosuvastatin (Crestor) 5 MG tabletIndications:O ther hyperlipidemia Take 1 tablet (5 mg) by mouth Daily 30 tablet 1 4 Active triamcinolone (Kenalog) 0.1 % creamIndications:Pr urigo nodularis Apply to affected areas, up to twice a day when flared, do not use one the face, groin, or underarms, 30 day supply 80 g 11 4 Active metroNIDAZOLE (Metrocream) 0.75 % creamIndications:Pe rioral dermatitis Apply thin layer to face, once daily, 30 day supply 45 g 11 5 Active Active Problems Problem Noted Date Diagnosed Date 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 Ongoing intermittently for 2 weeks. Uncertain cause or correlation. Denies pain associated. Referral sent to Dermatology Hemorrhoids 07/14/2024 Assessment & Plan (07/14/2024 3:45 PM EST): Was seen at Dr. Frederick office for hemorrhoids. Lidocaine 5% gel called in- pt states she did not pick prescription up, states she was unsure if medication was received by pharmacy. Pt reports initially before she was seen in Dr. Frederick office she was having blood from hemorrhoids. She states this has since subsided.She was advised to follow up with Dr. Frederick' office if symptoms worsened or did not improve. Pharmacy verifies they did not receive new RX. RX sent today for lidocaine-hydrocortisone. Advised pt if symptoms worsen or do not improve in 5 days to follow up with ' office. Blood in stool, dizziness, pain, GO TO ER, pt verbalized understanding. Other hyperlipidemia 01/22/2024 Assessment & Plan (01/22/2024 2:43 PM EDT): LDL 280, Cholesterol 380 Has previously tried statins but starts to experience myalgias and has to stop Agreeable to use low dose crestor - start at 5 mg dose Lipid panel in 2 months. URTI (acute upper respiratory infection) 024 Assessment & Plan (01/22/2024 2:44 PM EDT): Here with cough, sore throat. Denies SOB, fever. Experiencing ear pressure. Normal ear exam but mild hyperemia of OP mucosa Will treat as bacterial URTI empirically as patient has had symptoms x 1 week Immunizations Immunization Administration Dates Next Due Influenza, injectable, MDCK, preservative free, quadrivalent 09/13/2019 Social History Tobacco Use Types Packs/Day Years Used Date Smoking Tobacco: Never Passive Smoke Exposure: Never Smokeless Tobacco: Never Tobacco Cessation:Counseling Given: Not Answered Alcohol Use Standard Drinks/Week Comments Never 0 (1 standard drink = 0.6 oz pur e alcohol) PHQ-2 Answer Date Recorded Patient Health Questionnaire-2 Score 0 01/22/2024 Comments No Sex and Gender Information Value Date Recorded Sex Assigned at Not on file Legal Sex Female 7:34 PM EDT Gender Identity Not on file Sexual Orientation Not on file Last Filed Vital Signs Vital Sign Reading Time Taken Comments Blood Pressure 122/62 07/14/2024 2:59 PM EST Pulse 97 07/14/2024 2:59 PM EST Temperature 36.6 C (97.8 F) 07/14/2024 2:59 PM EST Respiratory Rate 16 07/14/2024 2:59 PM EST Oxygen Saturation 99% 07/14/2024 2:59 PM EST Inhaled Oxygen Concentration - - Weight 65.5 kg (144 lb 6.4 oz) 07/14/2024 2:59 P M EST Height 158.8 cm (5' 2.5 ) 07/14/2024 2:59 PM EST Body Mass Index 25.99 07/14/2024 2:59 PM EST Plan of Treatment Upcoming Encounters Date Type Department Care Team (Late st Contact Info) Description 07/20/2025 2:00 PM EST Office Visit [facility] [address] [place] [id number] China Armstrong MD [address] [place] [address] Health Maintenance Due Date Last Done Comments CT Colonography 1955 FIT-DNA 1955 FIT 1955 FOBT 1955 Sigmoidoscopy 1955 Pneumococcal Vaccine: 65+ Ye ars (1 of 1 - PCV) 2004 Mammogram 12/22/2024 12/23/2023, 12/03, 06/13/2021, Additional history exists Influenza Vaccine (#1) 2025 09/13/2019 Colonoscopy 05/16/2032 05/16/2022 Colorectal Cancer Screening 05/16/2032 Procedures Procedure Name Priority Date/Time Associated Diagnosis Comments MM TOMOSYNTHESIS SCREENING BI 12/23/2023 2:19 PM EDT from Last 3 Months or Most Recently Relevant to Health Maintenance Results * MM TOMOSYNTHESIS SCREENING BI (12/23/2023 2:19 PM EDT) Anatomical Region Laterality Modality Other 12/23/2023 2:19 PM EDT Narrative 12/23/2023 2:19 PM EDT The [address] [address] Mammography Report Signed Patient: SHRUTHI NIX MR#: [id number] : 1955 Acct:[id number] Age/Sex: 68 / F ADM Date: 12/20/23 Loc: MAMMO Attending Dr: Hayde Duran M.D. Ordering Physician: Hayde Duran M.D. Results: Date of Service: 12/20/23 Follow Up: Procedure(s): MM tomosynthesis screening BI Accession Number(s): [id number] cc: Shaikh Mabel Guardado; Hayde Duran M.D. Patient Name: SHRUTHI NIX MR#: [id number] : 1955 Exam Date: 12/20/2023 Ordering Doctor: DR HAYDE DUARN M.D. RADIOLOGY REPORT PROCEDURE: MM TOMOSYNTHESIS SCREENING BI COMPARISON: MG MAMM AYUSH DIAG W CAD, 06/13/2021. MG MAMM SCREEN 3D AYUSH CAD, 06/20/2020. INDICATIONS: screening Calculator Name NCI Breast Cancer Risk Assessment Tool 5 Year Breast Cancer Risk Not Reported. Lifetime Breast Cancer Risk Not Reported. Personal Breast Cancer No Personal Ovarian Cancer No Treatments None Family Cancers None LOCATION: The [facility] BREAST COMPOSITION: The breasts are heterogeneously dense,which may obscure small masses. FINDINGS: DIAGNOSTIC CATEGORY 2--BENIGN FINDING: RIGHT BREAST: No significant suspicious finding. No significant change has occurred. LEFT BREAST: No significant suspicious finding. Scattered benign-appearing calcifications are present. No significant change has occurred. RECOMMENDATIONS: ROUTINE MAMMOGRAM AND CLINICAL EVALUATION IN 12 MONTHS. PLEASE NOTE: A NORMAL MAMMOGRAM DOES NOT EXCLUDE THE POSSIBILITY OF BREAST CANCER. A CLINICALLY SUSPICIOUS PALPABLE LUMP SHOULD BE BIOPSIED. Dictated by: Rajeev Beyer M.D. on 12/23/2023 at 13:43 Approved by: Rajeev Beyer M.D. on 12/23/2023 at 14:18 Dictated By: Rajeev Beyer M.D. Signed By: 12/23/23 1419 DD/ 1419 TD/TT: Fish Drier: Procedure Note Radiology, Radiologist, - 12/23/2023 [place] [address] Mammography Report Signed Patient: SHRUTHI NIX LMR#: [id number] : 5Acct:[id number] Age/Sex: 68 / FADM Date: 12/20/23 Loc: MAMMO Attending Dr: Hayde Duran M.D. Ordering Physician: Hayde Duran M.D.Results: Date of Service: 12/20/23Follow Up: Procedure(s): MM tomosynthesis screening BI Accession Number(s): [id number] cc: Shaikh Mabel Guardado; Hayde Duran M.D. Patient Name: SHRUTHI NIX MR#: [id number] : 1955 Exam Date: 12/20/2023 Ordering Doctor: DR HAYDE DURAN M.D. RADIOLOGY REPORT PROCEDURE: MM TOMOSYNTHESIS SCREENING BI COMPARISON: MG MAMM AYUSH DIAG W CAD, 06/13/2021. MG MAMM SCREEN 3D AYUSH CAD, 06/20/2020. INDICATIONS: screening Calculator Name NCI Breast Cancer Risk Assessment Tool 5 Year Breast Cancer Risk Not Reported. Lifetime Breast Cancer Risk Not Reported. Personal Breast Cancer No Personal Ovarian Cancer No Treatments None Family Cancers None LOCATION: [facility] BREAST COMPOSITION: The breasts are heterogeneously dense,which may obscure small masses. FINDINGS: DIAGNOSTIC CATEGORY 2--BENIGN FINDING: RIGHT BREAST: No significant suspicious finding. No significant changehas occurred. LEFT BREAST: No significant suspicious finding. Scatteredbenign-appearing calcifications are present. No significant change has occurred. RECOMMENDATIONS: ROUTINE MAMMOGRAM AND CLINICAL EVALUATION IN 12 MONTHS. PLEASE NOTE: A NORMAL MAMMOGRAM DOES NOT EXCLUDE THE POSSIBILITY OFBREAST CANCER. A CLINICALLY SUSPICIOUS PALPABLE LUMP SHOULD BE BIOPSIED. Dictated by: Rajeev Beyer M.D. on 12/23/2023 at 13:43 Approved by: Rajeev Beyer M.D. on 12/23/2023 at 14:18 Dictated By: Rajeev Beyer M.D. Signed By:12/23/23 1419 DD/ 1419 TD/TT: Fish Drier: Generic External Data Provider [facility] Final Result from Last 3 Months or Most Recently Relevant [place] [address] [facility]
--- OUTSIDE RECORDS SUMMARY | 2025-04-08 07:34 | XMS_ITS | CCD ---
Author Organization [facility] Care Team Providers Care [employer] Manager Name Role Phone Mary Mathew Unavailable [facility] Primary Care Unavailable [facility] Admitting Unavailable [facility] Attending Unavailable [facility] Consulting Unavailable CHRIS CARROLL Consulting Unavailable [facility] Primary Care Unavailable DR HAYDE DURAN V Consulting Unavailable LUZ MARINA, PERNELL Admitting Unavailable PERNELL RAZA Attending Unavailable LUZ MARINA, PERNELL Consulting Unavailable [facility] Primary Care Unavailable [facility] Admitting Unavailable [facility] Attending Unavailable [facility] Consulting Unavailable DR HAYDE DURAN V Consulting Unavailable [facility] H Primary Care Unavailable LUZ MARINA, PERNELL Admitting Unavailable LUZ MARINA PERNELL Attending Unavailable LUZ MARINA, PERNELL Consulting Unavailable Nila Calixto Unavailable GRANT GRULLON Referring Unavailable ADELEWLAKSHMI, NGO Primary Care Unavailable Juan Contreras MD Primary Care Provider Janel Coughlin NP Unavailable [phone] CHINA FORD Attending Unavailable SHAIKH AMOR Attending Unavailable JANEL COUGHLIN Attending UnavailCHINA Greene Attending Unavailable PHIL JEFFREY Referring Unavailable PHIL JEFFREY Referring Unavailable MAYRA YOUNG Referring Unavailable MAYRA YOUNG Referring Unavailable RONNIE JEFFRIES Referring Unavailable SANDEEP PELLETIER Referring Unavailable HECTOR, MAYRA Admitting Unavailable MAYRA YOUNG Attending Unavailable JOSE ALFREDO BARTON Referring Unavailable RACHELE, Referring Unavailable HECTOR, MAYRA Referring Unavailable SANDEEP PELLETIER Attending Unavailable SANDEEP PELLETIER Attending Unavailable RACHELE, Attending Unavailable MARCIE DEL ANGEL Attending Unavailabl e RACHELE, Referring Unavailable HECTOR, MAYRA Referring Unavailable RACHELE, Referring Unavailable RACHELE, Referring Unavailable RACHELE, Referring Unavailable DERENDY, PORTIA Referring Unavailable CHANNORBERTO VIRAMONTES Referring Unavailable RACHELE, Referring Unavailable MERVIN, HANI Referring Unavailable RACHELE, Referring Unavailable HECTOR, MAYRA Referring Unavailable Allergies Allergy Classification Reported Allergen(s) Allergy Type Date of Onset Reaction(s) Facility (2 sources) Acetaminophen / oxyCODONE Drug Allergy vomiting [facility] Other (13 sources) Codeine; Translations: [CODEINE] Drug Allergy 2 Rash, GI intolerance [facility] (2 sources) Meperidine Drug Allergy vomiting [facility] Other (2 sources) Propoxyphene; Translations: [PROPOXYPHENE] Drug Allergy 8 [facility] (1 source) rosuvastatin; Translations: [ROSUVASTATIN] Drug Allergy 5 [facility] Medications Current Medications Medication Drug Class(es) Dates Sig (Normalized) Sig (Original) amoxicillin 875 mg / clavulanate 125 mg oral tablet (3 sources) Penicillin-class Antibacterial Start: 12-22-2021 take 1 tablet by mouth every twelve hours Amoxicillin-Pot Clavulanate 875-125 MG 1 tablet Orally every 12 hrs for 10 day(s) Jun, Active dextromethorphan hydrobromide 1.5 mg/ml / pyrilamine maleate 1.5 mg/ml oral solution (1 source) Uncompetitive X-qfdgzq-A-aspartat e Receptor Antagonist, Sigma-1 Agonist Start: 06-08-2023 take 10 mL by mouth every eight hours [place] DM 7.5-7.5 MG/5ML 10 mL Orally every 8 hours for 5 days Jun, Active doxycycline monohydrate 50 mg oral capsule (5 sources) Tetracycline-class Drug Start: 07-20-2024 End: 09-03-2024 take 1 capsule by mouth twice daily doxycycline (Monodox) 50 MG capsule Indications: Perioral dermatitis Take 1 capsule, by mouth, bid, 30 days 60 capsule 07/20/2024 09/03/2024 Discontinued (Side effects) hydrocortisone acetate 5 mg/ml / lidocaine hydrochloride 30 mg/ml rectal cream (2 sources) Antiarrhythmic, Corticosteroid, Amide Local Anesthetic Start: 07-14-2024 End: 07-19-2024 Lidocaine-Hydrocor t, Perianal, 3-0.5 % cream Indications: Hemorrhoids, unspecified hemorrhoid type Apply 1 Application topically Daily as needed (Anal itching/burning) for up to 5 days 28.3 g 07/14/2024 07/19/2024 Active metroNIDAZOLE 7.5 mg/ml topical cream (2 sources) Nitroimidazole Antimicrobial Start: 09-02-2024 metroNIDAZOLE (Metrocream) 0.75 % cream Indications: Perioral dermatitis Apply thin layer to face, once daily, 30 day supply 45 g 11 09/02/2024 Active predniSONE 20 mg oral tablet (1 source) Start: 06-08-2023 take 1 tablet by mouth every twelve hours prednisone 20 MG 1 tablet Orally BID for 5 Jun, Active rosuvastatin calcium 5 mg oral tablet (9 sources) HMG-CoA Reductase Inhibitor Start: 01-22-2024 End: 01-21-2025 take 1 tablet by mouth once daily rosuvastatin (Crestor) 5 MG tablet Indications: Other hyperlipidemia (CMS/HCC) Take 1 tablet (5 mg) by mouth Daily 30 tablet 1 01/22/2024 01/21/2025 Active triamcinolone acetonide 1 mg/ml topical cream (5 sources) Corticosteroid Start: 07-20-2024 triamcinolone (Kenalog) 0.1 % cream Indications: Prurigo nodularis Apply to affected areas, up to twice a day when flared, do not use one the face, groin, or underarms, 30 day supply 80 g 07/20/2024 Active Completed/Discontinued Medications Medication Drug Class(es) Dates Sig (Normalized) Sig (Original) [id number] 200 actuat albuterol 0.09 mg/actuat metered dose inhaler (2 sources) beta2-Adrenergic Agonist Start: take 2 puff(s) by inhalation every four hours as needed Albuterol Sulfate HFA 108 (90 Base) MCG/ACT 2 puffs as needed Inhalation every 4 hrs December, Not-Taking methylPREDNISolone 4 mg oral tablet (2 sources) Corticosteroid Start: 2 methylPREDNISolone 4 MG as directed Orally Once a day for 6 days December, Not-Taking ondansetron 4 mg oral tablet (2 sources) Serotonin-3 Receptor Antagonist Start: 2 take 1 tablet by mouth every eight hours as needed Zofran ODT 4 MG 1 tablet on the tongue and allow to dissolve Orally every 8 hrs as needed for 4 days December, Not-Taking Problems Active Problems Problem Classification Problem Date Documented Date Episodic/Chronic Acute posthemorrhagic anemia (2 sources) Acute posthemorrhagic anemia; Translations: [Acute posthemorrhagic anemia] Onset: 11-29-2024 Episodic Coronary atherosclerosis and other heart disease (6 sources) Atherosclerotic heart disease of [place] coronary artery without angina pectoris; Translations: [Unstable angina] Onset: 11-24-2024 Chronic Coronary atherosclerosis and other heart disease (2 sources) Presence of aortocoronary bypass graft; Translations: [Presence of aortocoronary bypass graft] Onset: 11-24-2024 Episodic Disorders of lipid metabolism (13 sources) Hyperlipidemia; Translations: [Other hyperlipidemia] Onset: 01-22-2024 01-22-2024 Chronic Esophageal disorders (2 sources) Gastro-esophageal reflux disease without esophagitis; Translations: [Gastro-esophageal reflux disease without esophagitis] Onset: 11-24-2024 Chronic Essential hypertension (2 sources) Essential (primary) hypertension; Translations: [Essential (primary) hypertension] Onset: 11-26-2024 Chronic Hemorrhoids (10 sources) Hemorrhoids; Translations: [Unspecified hemorrhoids] Onset: 07-14-2024 07-14-2024 Episodic Neoplasms of unspecified nature or uncertain behavior (12 sources) Neoplastic disease of uncertain behavior; Translations: [Neoplasm of uncertain behavior, unspecified] Onset: 07-14-2024 07-14-2024 Episodic Other connective tissue disease (4 sources) Pain in right foot; Translations: [PAIN IN RIGHT FOOT] Onset: 10-31-2022 Episodic Other connective tissue disease (1 source) Pain in left foot; Translations: [PAIN IN LEFT FOOT] Onset: 11-08-2022 Episodic Other eye disorders (1 source) Dermatochalasis of unspecified eye, unspecified eyelid; Translations: [Dermatochalasis of unspecified eye, unspecified eyelid] Onset: 03-16-2024 Episodic Other inflammatory condition of skin (4 sources) Perioral dermatitis; Translations: [Perioral dermatitis] 07-20-2024 Chronic Other inflammatory condition of skin (4 sources) Prurigo nodularis; 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 nodularis] 07-20-2024 Episodic Other screening for suspected conditions (not mental disorders or infectious disease) (4 sources) Abnormal findings on diagnostic imaging of heart and coronary circulation; Translations: [Abnormal result of other cardiovascular function study] Onset: 11-24-2024 Episodic Other skin disorders (2 sources) Seborrheic keratosis; Translations: [Other seborrheic keratosis] 07-20-2024 Episodic Other skin disorders (2 sources) Lentiginosis; Translations: [Other melanin hyperpigmentation] 07-20-2024 Episodic Residual codes; unclassified (2 sources) Other specified health status; Translations: [Other specified health status] Onset: 12-20-2024 Episodic Past or Other Problems Problem Classification Problem Date Documented Da te Episodic/Chronic Nausea and vomiting (1 source) Nausea Onset: 12-22-2021 Resolved: 12-22-2021 Episodic Other lower respiratory disease (4 sources) Chronic cough; Translations: [CHRONIC COUGH] Onset: 01-14-2022 Episodic Other non-traumatic joint disorders (4 sources) Pain in left ankle and joints of left foot; Translations: [PAIN IN LEFT ANKLE] Onset: 03-07-2022 Episodic Other upper respiratory infections (9 sources) Acute upper respiratory infection; Translations: [Acute upper respiratory infection, unspecified] Onset: 01-22-2024 01-22-2024 Episodic Pneumonia (except that caused by tuberculosis or sexually transmitted disease) (1 source) Pneumonia, unspecified organism Onset: 12-22-2021 Resolved: 12-22-2021 Episodic Residual codes; unclassified (1 source) Chills (without fever) Onset: 12-22-2021 Resolved: 12-22-2021 Episodic Viral infection (1 source) COVID-19 Onset: 12-22-2021 Resolved: 05-21-2022 Results Test Name Value Interpretation Reference Range Facility 36on 01-05-2025 36 Spoke with patient yesterday while she was at cardiac rehab. She says she's just tired with the whole tablet of metoprolol. Nausea has subsided. I asked her to continue to monitor her BP and HR and make us aware of problems. Normal [facility] 36on 12-29-2024 36 Normal [facility] Orders Onlyon 12-28-2024 Orders Only Normal [facility] Telemedicineon 12-23-2024 Telemedicine Normal [place] [facility] 36on 12-21-2024 36 Normal [facility] Telephoneon 12-21-2024 Telephone Normal [facility] Abstracton 12-10-2024 Abstract [facility] 37on 12-09-2024 37 -Stop lasix and pota ssium -Okay to drive in 4 weeks. -Limit lifting of 5-10 lbs for 6-8 weeks after surgery -Telehealth visit is 2 weeks. -Follow up with Dr. Pelletier 12/20 in [place]. Normal [facility] CBC WITH AUTO DIFFERENTIALon 12-09-2024 Basophils (Bld) [#/Vol] 0.04 10*3/uL Normal 0.00-0.20 [facility] Comment on above: Performed By: #### L [id number] ####[facility] (BEAKER)[address] [place] [address] Basophils/100 WBC (Bld) 0.4 % Normal 0.0-1.0 [facility] Comment on above: Performed By: #### L [id number] ####[facility] ([facility])[address] [place] [address] Eosinophils (Bld) [#/Vol] 0.09 10*3/uL Normal 0.00-0.50 [facility] Comment on above: Performed By: #### L [id number] ####[facility] ([facility])[address] [place] [address] Eosinophils/100 WBC (Bld) 0.8 % Normal 0.0-6.0 [facility] Comment on above: Performed By: #### L [id number] ####[facility] ([facility])[address] [place] [address] Erythrocyte distribution width (RBC) [Ratio] 13.7 % Normal 11.5-15.0 [facility] Comment on above: Performed By: #### L [id number] ####[facility] ([facility])[address] [place] [address] ERYTHROCYTE MEAN CORPUSCULAR HEMOGLOBIN CONCENTRATION (G/DL) BY AUTOMATED 30.9 g/dL Low 32.0-35.0 [facility] Comment on above: Performed By: #### L [id number] ####[facility] ([facility])[address] [place] [address] Hematocrit (Bld) [Volume fraction] 34.3 % Low 36.0-45.0 [facility] Comment on above: Performed By: #### L [id number] ####[facility] ([facility])[address] [place] [address] Hemoglobin (Bld) [Mass/Vol] 10.6 g/dL Low 12.0-15.0 [facility] Comment on above: Performed By: #### L [id number] ####[facility] ([facility])[address] [place] [address] Immature granulocytes (Bld) [#/Vol] 0.06 10*3/uL Normal 0.00-0.20 [facility] Comment on above: Performed By: #### L [id number] ####[facility] ([facility])[address] [place] [address] Immature granulocytes/100 WBC (Bld) 0.5 % Normal 0.0-1.0 [facility] Comment on above: Performed By: #### L [id number] ####[facility] ([facility]ER)[address] [place] [address] Lymphocytes (Bld) [#/Vol] 2.20 10*3/uL Normal 1.20-4.00 [facility] Comment on above: Performed By: #### L [id number] ####[facility] ([facility]ER)[address] [place] [address] Lymphocytes/100 WBC (Bld) 19.4 % Low 20.0-45.0 [facility] Comment on above: Performed By: #### L [id number] ####[facility] ([facility]ER)[address] [place] [address] MCH (RBC) [Entitic mass] 28.4 pg Normal 27.0-33.0 [facility] Comment on above: Performed By: #### L [id number] ####[facility] ([facility]ER)[address] [place] [address] MCV (RBC) [Entitic vol] 92.0 fL Normal 82.0-98.0 [facility] Comment on above: Performed By: #### L [id number] ####[facility] ([facility])[address] [place] [address] Monocytes (Bld) [#/Vol] 0.66 10*3/uL Normal 0.10-1.00 [facility] Comment on above: Performed By: #### L [id number] ####[facility] ([facility]ER)[address] [place] [address] Monocytes/100 WBC (Bld) 5.8 % Normal 5.0-12.0 [facility] Comment on above: Performed By: #### L [id number] ####[facility] ([facility])[address] [place] [address] Neutrophils (Bld) [#/Vol] 8.31 10*3/uL High 1.60-7.60 [facility] Comment on above: Performed By: #### L [id number] ####[facility] ([facility]ER)[address] [place] [address] Neutrophils/100 WBC (Bld) 73.1 % High 40.0-72.0 [facility] Comment on above: Performed By: #### L [id number] ####[facility] ([facility]AKER)[address] [place] [address] NRBC (PER 100 WBCS) BY AUTOMATED COUNT 0.0 % Normal 0 [facility] Comment on above: Performed By: #### L [id number] ####[facility] ([facility])[address] [place] [address] PLATELETS (10*3/UL) IN BLOOD AUTOMATED COUNT 937 10*3/uL High 150-400 [facility] Comment on above: Performed By: #### L [id number] ####[facility] ([facility])[address] [place] [address] RBC (Bld) [#/Vol] 3.73 10*6/uL Low 3.80-5.00 [facility] Comment on above: Performed By: #### L [id number] ####[facility] ([facility])[address] [place] [address] WBC (Bld) [#/Vol] 11.36 10*3/uL High 4.00-10.60 [facility] Comment on above: Performed By: #### L [id number] ####[facility] ([facility])[address] [place] [address] COMPREHENSIVE METABOLIC PANE Mohit 12-09-2024 Albumin [Mass/Vol] 4.0 g/dL Normal 3.5-5.7 [facility] Comment on above: Performed By: #### L [id number] ####[facility] ([facility])[address] [place] [address] ALP [Catalytic activity/Vol] 95 U/L Normal 34-104 [facility] Comment on above: Performed By: #### L [id number] ####[facility], [place] [address] ALT [Catalytic activity/Vol] 16 U/L Normal 7-52 [facility] Comment on above: Performed By: #### L [id number] ####[facility] [place] [address] Anion gap [Moles/Vol] 12 mmol/L Normal 7-20 [facility] Comment on above: Performed By: #### L [id number] ####[facility] [place] [address] AST [Catalytic activity/Vol] 14 U/L Normal 13-39 [facility] Comment on above: Performed By: #### L [id number] ####[facility] [place] [address] Bilirubin [Mass/Vol] 0.4 mg/dL Normal 0.3-1.0 [facility] Comment on above: Performed By: #### L [id number] ####[facility] [place] [address] Calcium [Mass/Vol] 9.0 mg/dL Normal 8.6-10.3 [facility] Comment on above: Performed By: #### L [id number] ####[facility] ([facility])[address] [place] [address] Chloride [Moles/Vol] 104 mmol/L Normal 98-107 [facility] Comment on above: Performed By: #### L [id number] ####[facility] [place] [address] CO2 [Moles/Vol] 27 mmol/L Normal 21-31 [facility] Comment on above: Performed By: #### L [id number] ####[facility] [place] [address] Creatinine [Mass/Vol] 1.00 mg/dL Normal 0.60-1.20 [facility] Comment on above: Performed By: #### L [id number] ####[facility] [place] [address] GLOMERULAR FILTRATION RATE ML/MIN/1.73 SQ M.PREDICTED 60.6 mL/min/1.73m*2 Normal >60.0 [facility] Comment on above: Result Comment: The [facility]???s estimated glomerular filtration rate (eGFR) will no longer include consideration of race in its calculation. The National Kidney Foundation???s eGFR Task Force developed new recommendations for [...] disproportionately affect any one group of individuals. Performed By: #### L [id number] ####[facility] ([facility])[address] [place] [address] Glucose [Mass/Vol] 115 mg/dL High 70-100 [facility] Comment on above: Performed By: #### L [id number] ####[facility] ([facility])[address] [place] [address] Potassium [Moles/Vol] 4.4 mmol/L Normal 3.5-5.1 [facility] Comment on above: Performed By: #### L [id number] ####[facility] ([facility])[address] [place] [address] Protein [Mass/Vol] 6.9 g/dL Normal 6.0-8.3 [facility] Comment on above: Performed By: #### L [id number] ####[facility] ([facility])[address] [place] [address] Sodium [Moles/Vol] 139 mmol/L Normal 136-145 [facility] Comment on above: Performed By: #### L [id number] ####[facility] ([facility])[address] [place] [address] Urea nitrogen [Mass/Vol] 18 mg/dL Normal 7-25 [facility] Comment on above: Performed By: #### L [id number] ####[facility] ([facility])[address] [place] [address] UREA NITROGEN/CREATINI NE (MASS RATIO) IN SER/PLAS 18.0 Normal [facility] Comment on above: Performed By: #### L [id number] ####[facility] ([facility])[address] [place] [address] Labon 12-09-2024 Lab Normal [facility] MAGNESIUMon 12-09-2024 Magnesium [Mass/Vol] 1.7 mg/dL Low 1.9-2.7 [facility] Comment on above: Performed By: #### L [id number] ####[facility] ([facility]ER)[address] [place] [address] BASIC METABOLIC PANELon 05 Anion gap [Moles/Vol] 10 mmol/L Normal 7-20 [facility] Comment on above: Performed By: #### L [id number] ####[facility] ([facility])[address] [place] [address] Calcium [Mass/Vol] 8.9 mg/dL Normal 8.6-10.3 [facility] Comment on above: Performed By: #### L [id number] ####[facility] ([facility])[address] [place] [address] Chloride [Moles/Vol] 105 mmol/L Normal 98-107 [facility] Comment on above: Performed By: #### L [id number] ####[facility] ([facility]ER)[address] [place] [address] CO2 [Moles/Vol] 28 mmol/L Normal 21-31 [facility] Comment on above: Performed By: #### L [id number] ####[facility] ([facility]ER)[address] [place] [address] Creatinine [Mass/Vol] 0.93 mg/dL Normal 0.60-1.20 [facility] Comment on above: Performed By: #### L [id number] ####[facility] ([facility])[address] [place] [address] GLOMERULAR FILTRATION RATE ML/MIN/1.73 SQ M.PREDICTED 66.1 mL/min/1.73m*2 Normal >60.0 [facility] Comment on above: Result Comment: The [facility]???s estimated glomerular filtration rate (eGFR) will no longer include consideration of race in its calculation. The National Kidney Foundation???s eGFR Task Force developed new recommendations for [...] disproportionately affect any one group of individuals. Performed By: #### L [id number] ####[facility] ([facility])[address] [place] [address] Glucose [Mass/Vol] 90 mg/dL Normal 70-100 [facility] Comment on above: Performed By: #### L [id number] ####[facility] ([facility])[address] [place] [address] Potassium [Moles/Vol] 4.7 mmol/L Normal 3.5-5.1 [facility] Comment on above: Performed By: #### L [id number] ####[facility] ([facility])[address] [place] [address] Sodium [Moles/Vol] 138 mmol/L Normal 136-145 [facility] Comment on above: Performed By: #### L [id number] ####[facility] ([facility])[address] [place] [address] Urea nitrogen [Mass/Vol] 15 mg/dL Normal 7-25 [facility] Comment on above: Performed By: #### L [id number] ####[facility] ([facility])[address] [place] [address] UREA NITROGEN/CREATINI NE (MASS RATIO) IN SER/PLAS 16.1 Normal [facility] Comment on above: Performed By: #### L [id number] ####[facility] ([facility])[address] [place] [address] CBC WITH AUTO DIFFERENTIALon 12-06-2024 Basophils (Bld) [#/Vol] 0.05 10*3/uL Normal 0.00-0.20 [facility] Comment on above: Performed By: #### L [id number] ####[facility] ([facility]ER)[address] [place] [address] Basophils/100 WBC (Bld) 0.4 % Normal 0.0-1.0 [facility] Comment on above: Performed By: #### L [id number] ####[facility] ([facility])[address] [place] [address] Eosinophils (Bld) [#/Vol] 0.20 10*3/uL Normal 0.00-0.50 [facility] Comment on above: Performed By: #### L [id number] ####[facility] ([facility])[address] [place] [address] Eosinophils/100 WBC (Bld) 1.8 % Normal 0.0-6.0 [facility] [facility] Comment on above: Performed By: #### L [id number] ####[facility] (BEAKER)[address] [place] [address] Erythrocyte distribution width (RBC) [Ratio] 13.5 % Normal 11.5-15.0 [facility] Comment on above: Performed By: #### L [id number] ####[facility] ([facility]AKER)[address] [place] [address] ERYTHROCYTE MEAN CORPUSCULAR HEMOGLOBIN CONCENTRATION (G/DL) BY AUTOMATED 31.8 g/dL Low 32.0-35.0 [facility] Comment on above: Performed By: #### L [id number] ####[facility] ([facility]AKER)[address] [place] [address] Hematocrit (Bld) [Volume fraction] 32.7 % Low 36.0-45.0 [facility] Comment on above: Performed By: #### L [id number] ####[facility] ([facility]AKER)[address] [place] [address] Hemoglobin (Bld) [Mass/Vol] 10.4 g/dL Low 12.0-15.0 [facility] Comment on above: Performed By: #### L [id number] ####[facility] (BEAKER)[address] [place] [address] Immature granulocytes (Bld) [#/Vol] 0.23 10*3/uL High 0.00-0.20 [facility] Comment on above: Performed By: #### L [id number] ####[facility] (BEAKER)[address] [place] [address] Immature granulocytes/100 WBC (Bld) 2.0 % High 0.0-1.0 [facility] Comment on above: Performed By: #### L [id number] ####[facility] ([facility]AKER)[address] [place] [address] Lymphocytes (Bld) [#/Vol] 2.69 10*3/uL Normal 1.20-4.00 [facility] Comment on above: Performed By: #### L [id number] ####[facility] ([facility]AKER)[address] [place] [address] Lymphocytes/100 WBC (Bld) 23.9 % Normal 20.0-45.0 [facility] Comment on above: Performed By: #### L [id number] ####[facility] ([facility]AKER)[address] [place] [address] MCH (RBC) [Entitic mass] 28.7 pg Normal 27.0-33.0 [facility] Comment on above: Performed By: #### L [id number] ####[facility] ([facility]AKER)[address] [place] [address] MCV (RBC) [Entitic vol] 90.1 fL Normal 82.0-98.0 [facility] Comment on above: Performed By: #### L [id number] ####[facility] ([facility]AKER)[address] [place] [address] Monocytes (Bld) [#/Vol] 0.80 10*3/uL Normal 0.10-1.00 [facility] Comment on above: Performed By: #### L [id number] ####[facility] ([facility]AKER)[address] [place] [address] Monocytes/100 WBC (Bld) 7.1 % Normal 5.0-12.0 [facility] Comment on above: Performed By: #### L [id number] ####[facility] ([facility])[address] [place] [address] Neutrophils (Bld) [#/Vol] 7.27 10*3/uL Normal 1.60-7.60 [facility] Comment on above: Performed By: #### L [id number] ####[facility] ([facility])[address] [address] Neutrophils/100 WBC (Bld) 64.8 % Normal 40.0-72.0 [facility] Comment on above: Performed By: #### L [id number] ####[facility] ([facility])[address] [address] NRBC (PER 100 WBCS) BY AUTOMATED COUNT 0.0 % Normal 0 [facility] Comment on above: Performed By: #### L [id number] ####[facility] ([facility])[address] [place] [address] PLATELETS (10*3/UL) IN BLOOD AUTOMATED COUNT 656 10*3/uL High 150-400 [facility] Comment on above: Performed By: #### L [id number] ####[facility] ([facility])[address] [address] RBC (Bld) [#/Vol] 3.63 10*6/uL Low 3.80-5.00 [facility] Comment on above: Performed By: #### L [id number] ####[facility] ([facility])[address] [address] WBC (Bld) [#/Vol] 11.24 10*3/uL High 4.00-10.60 [facility] Comment on above: Performed By: #### L [id number] ####[facility] [address] CBC WITH AUTO DIFFERENTIALon 12-03-2024 Basophils (Bld) [#/Vol] 0.05 10*3/uL Normal 0.00-0.20 [facility] Comment on above: Performed By: #### L [id number] ####[facility] (BEAKER)[address] [place] [address] Basophils/100 WBC (Bld) 0.5 % Normal 0.0-1.0 [facility] Comment on above: Performed By: #### L [id number] ####[facility] ([facility]AKER)[address] [place] [address] Eosinophils (Bld) [#/Vol] 0.12 10*3/uL Normal 0.00-0.50 [facility] Comment on above: Performed By: #### L [id number] ####[facility] ([facility]AKER)[address] [place] [address] Eosinophils/100 WBC (Bld) 1.3 % Normal 0.0-6.0 [facility] Comment on above: Performed By: #### L [id number] ####[facility] [place] [address] Erythrocyte distribution width (RBC) [Ratio] 13.4 % Normal 11.5-15.0 [facility] Comment on above: Performed By: #### L [id number] ####[facility] ([facility]AKER)[address] [place] [address] ERYTHROCYTE MEAN CORPUSCULAR HEMOGLOBIN CONCENTRATION (G/DL) BY AUTOMATED 31.2 g/dL Low 32.0-35.0 [facility] Comment on above: Performed By: #### L [id number] ####[facility] (BEAKER)[address] [place] [address] Hematocrit (Bld) [Volume fraction] 30.8 % Low 36.0-45.0 [facility] Comment on above: Performed By: #### L [id number] ####[facility] ([facility]ER)[address] [place] [address] Hemoglobin (Bld) [Mass/Vol] 9.6 g/dL Low 12.0-15.0 [facility] Comment on above: Performed By: #### L [id number] ####[facility] ([facility]AKER)[address] [place] [address] Immature granulocytes (Bld) [#/Vol] 0.23 10*3/uL High 0.00-0.20 [facility] Comment on above: Performed By: #### L [id number] ####[facility] ([facility]AKER)[address] [place] [address] Immature granulocytes/100 WBC (Bld) 2.4 % High 0.0-1.0 [facility] Comment on above: Performed By: #### L [id number] ####[facility] ([facility]ER)[address] [place] [address] Lymphocytes (Bld) [#/Vol] 2.49 10*3/uL Normal 1.20-4.00 [facility] Comment on above: Performed By: #### L [id number] ####[facility] [place] [address] Lymphocytes/100 WBC (Bld) 26.1 % Normal 20.0-45.0 [facility] Comment on above: Performed By: #### L [id number] ####[facility] [place] [address] MCH (RBC) [Entitic mass] 28.5 pg Normal 27.0-33.0 [facility] Comment on above: Performed By: #### L [id number] ####[facility] (BEAKER)[address] [place] [address] MCV (RBC) [Entitic vol] 91.4 fL Normal 82.0-98.0 [facility] Comment on above: Performed By: #### L [id number] ####[facility] (BE[facility]ER)[address] [place] [address] Monocytes (Bld) [#/Vol] 1.06 10*3/uL High 0.10-1.00 [facility] Comment on above: Performed By: #### L [id number] ####[facility] (BEAKER)[address] [place] [address] Monocytes/100 WBC (Bld) 11.1 % Normal 5.0-12.0 [facility] Comment on above: Performed By: #### L [id number] ####[facility] ([facility])[address] [place] [address] Neutrophils (Bld) [#/Vol] 5.58 10*3/uL Normal 1.60-7.60 [facility] Comment on above: Performed By: #### L [id number] ####[facility] [place] [address] Neutrophils/100 WBC (Bld) 58.6 % Normal 40.0-72.0 [facility] Comment on above: Performed By: #### L [id number] ####[facility] [place] [address] NRBC (PER 100 WBCS) BY AUTOMATED COUNT 0.0 % Normal 0 [facility] Comment on above: Performed By: #### L [id number] ####[facility] [place] [address] PLATELETS (10*3/UL) IN BLOOD AUTOMATED COUNT 400 10*3/uL Normal 150-400 [facility] Comment on above: Performed By: #### L [id number] ####[facility] (BEAKER)[address] [place] [address] RBC (Bld) [#/Vol] 3.37 10*6/uL Low 3.80-5.00 [facility] Comment on above: Performed By: #### L [id number] ####[facility] (BEAKER)[address] [place] [address] WBC (Bld) [#/Vol] 9.53 10*3/uL Normal 4.00-10.60 [facility] Comment on above: Performed By: #### L [id number] ####[facility] ([facility]ER)[address] [place] [address] COMPREHENSIVE METABOLIC PANE Mohit 12-03-2024 Albumin [Mass/Vol] 3.0 g/dL Low 3.5-5.7 [facility] Comment on above: Performed By: #### L [id number] ####[facility] [place] [address] ALP [Catalytic activity/Vol] 68 U/L Normal 34-104 [facility] Comment on above: Performed By: #### L [id number] ####[facility] ([facility])[address] [place] [address] ALT [Catalytic activity/Vol] 37 U/L Normal 7-52 [facility] Comment on above: Performed By: #### L [id number] ####[facility] ([facility])[address] [place] [address] Anion gap [Moles/Vol] 6 mmol/L Low 7-20 [facility] Comment on above: Performed By: #### L [id number] ####[facility] ([facility])[address] [place] [address] AST [Catalytic activity/Vol] 48 U/L High 13-39 [facility] Comment on above: Performed By: #### L [id number] ####[facility] ([facility])[address] [place] [address] Bilirubin [Mass/Vol] 0.4 mg/dL Normal 0.3-1.0 [facility] Comment on above: Performed By: #### L [id number] ####[facility] ([facility])[address] [place] [address] Calcium [Mass/Vol] 8.6 mg/dL Normal 8.6-10.3 [facility] Comment on above: Performed By: #### L [id number] ####[facility] ([facility])[address] [place] [address] Chloride [Moles/Vol] 102 mmol/L Normal 98-107 [facility] Comment on above: Performed By: #### L [id number] ####[facility] ([facility])[address] [place] [address] CO2 [Moles/Vol] 35 mmol/L High 21-31 [facility] Comment on above: Performed By: #### L [id number] ####[facility] ([facility])[address] [place] [address] Creatinine [Mass/Vol] 0.82 mg/dL Normal 0.60-1.20 [facility] Comment on above: Performed By: #### L [id number] ####[facility] ([facility])[address] [place] [address] GLOMERULAR FILTRATION RATE ML/MIN/1.73 SQ M.PREDICTED 76.9 mL/min/1.73m*2 Normal >60.0 [facility] Comment on above: Result Comment: The [facility]???s estimated glomerular filtration rate (eGFR) will no longer include consideration of race in its calculation. The National Kidney Foundation???s eGFR Task Force developed new recommendations for [...] disproportionately affect any one group of individuals. Performed By: #### L [id number] ####[facility] ([facility])[address] [place] [address] Glucose [Mass/Vol] 96 mg/dL Normal 70-100 [facility] Comment on above: Performed By: #### L [id number] ####[facility] ([facility])[address] [place] [address] Potassium [Moles/Vol] 4.3 mmol/L Normal 3.5-5.1 [facility] Comment on above: Performed By: #### L [id number] ####[facility] ([facility])[address] [place] [address] Protein [Mass/Vol] 5.5 g/dL Low 6.0-8.3 [facility] Comment on above: Performed By: #### L [id number] ####[facility] (BEAKER)[address] [place] [address] Sodium [Moles/Vol] 139 mmol/L Normal 136-145 [facility] Comment on above: Performed By: #### L [id number] ####[facility] (BEAKER)[address] [place] [address] Urea nitrogen [Mass/Vol] 16 mg/dL Normal 7-25 [facility] Comment on above: Performed By: #### L [id number] ####[facility] (BEAKER)[address] [place] [address] UREA NITROGEN/CREATINI NE (MASS RATIO) IN SER/PLAS 19.5 Normal [facility] Comment on above: Performed By: #### L [id number] ####[facility] (BEAKER)[address] [place] [address] 30on 12-02-2024 30 Normal [facility] 30 The patient is Moder ately Stable - Low risk of patient condition declining or worsening The patient's goals for the shift include rest, comfort The clinical goals for the shift include vss, safety Normal [facility] BASIC METABOLIC PANELon 050 Anion gap [Moles/Vol] 8 mmol/L Normal 7-20 [facility] Comment on above: Performed By: #### L [id number] ####[facility] (BEAKER)[address] [place] [address] Calcium [Mass/Vol] 8.1 mg/dL Low 8.6-10.3 [facility] Comment on above: Performed By: #### L [id number] ####[facility] ([facility]ER)[address] [place] [address] Chloride [Moles/Vol] 99 mmol/L Normal 98-107 [facility] Comment on above: Performed By: #### L [id number] ####[facility] (BEAKER)[address] [place] [address] CO2 [Moles/Vol] 35 mmol/L High 21-31 [facility] Comment on above: Performed By: #### L [id number] ####[facility] [place] [address] Creatinine [Mass/Vol] 0.74 mg/dL Normal 0.60-1.20 [facility] Comment on above: Performed By: #### L [id number] ####[facility] [place] [address] GLOMERULAR FILTRATION RATE ML/MIN/1.73 SQ M.PREDICTED 87.0 mL/min/1.73m*2 Normal >60.0 [facility] Comment on above: Result Comment: The [facility]???s estimated glomerular filtration rate (eGFR) will no longer include consideration of race in its calculation. The National Kidney Foundation???s eGFR Task Force developed new recommendations for [...] disproportionately affect any one group of individuals. Performed By: #### L [id number] ####[facility] ([facility])[address] [place] [address] Glucose [Mass/Vol] 91 mg/dL Normal 70-100 [facility] Comment on above: Performed By: #### L [id number] ####[facility] ([facility])[address] [place] [address] Potassium [Moles/Vol] 4.3 mmol/L Normal 3.5-5.1 [facility] Comment on above: Performed By: #### L [id number] ####[facility] [place] [address] Sodium [Moles/Vol] 138 mmol/L Normal 136-145 [facility] Comment on above: Performed By: #### L [id number] ####[facility] [place] [address] Urea nitrogen [Mass/Vol] 19 mg/dL Normal 7-25 [facility] Comment on above: Performed By: #### L [id number] ####[facility] ([facility])[address] [place] [address] UREA NITROGEN/CREATINI NE (MASS RATIO) IN SER/PLAS 25.7 Normal [facility] Comment on above: Performed By: #### L [id number] ####[facility] ([facility])[address] [place] [address] CBCon 12-02-2024 Erythrocyte distribution width (RBC) [Ratio] 13.5 % Normal 11.5-15.0 [facility] Comment on above: Performed By: #### L [id number] ####[facility] ([facility])[address] [place] [address] ERYTHROCYTE MEAN CORPUSCULAR HEMOGLOBIN CONCENTRATION (G/DL) BY AUTOMATED 31.7 g/dL Low 32.0-35.0 [facility] Comment on above: Performed By: #### L [id number] ####[facility] ([facility])[address] [place] [address] Hematocrit (Bld) [Volume fraction] 27.8 % Low 36.0-45.0 [facility] Comment on above: Performed By: #### L [id number] ####[facility] ([facility])[address] [place] [address] Hemoglobin (Bld) [Mass/Vol] 8.8 g/dL Low 12.0-15.0 [facility] Comment on above: Performed By: #### L [id number] ####[facility] ([facility])[address] [place] [address] MCH (RBC) [Entitic mass] 28.6 pg Normal 27.0-33.0 [facility] Comment on above: Performed By: #### L [id number] ####[facility] [place] [address] MCV (RBC) [Entitic vol] 90.3 fL Normal 82.0-98.0 [facility] Comment on above: Performed By: #### L [id number] ####[facility] ([facility])[address] [place] [address] PLATELETS (10*3/UL) IN BLOOD AUTOMATED COUNT 309 10*3/uL Normal 150-400 [facility] Comment on above: Performed By: #### L [id number] ####[facility] ([facility])[address] [place] [address] RBC (Bld) [#/Vol] 3.08 10*6/uL Low 3.80-5.00 [facility] Comment on above: Performed By: #### L [id number] ####[facility] ([facility])[address] [place] [address] WBC (Bld) [#/Vol] 8.68 10*3/uL Normal 4.00-10.60 [facility] Comment on above: Performed By: #### L [id number] ####[facility] ([facility])[address] [place] [address] DSon 12-02-2024 DS Normal [facility] MAGNESIUMon 12-02-2024 Magnesium [Mass/Vol] 2.0 mg/dL Normal 1.9-2.7 [facility] Comment on above: Performed By: #### L [id number] ####[facility] ([facility])[address] [place] [address] NURSNOTEon 12-02-2024 NURSNOTE AVS reviewed with [facility] transporter, verbalized understanding. Patient discharged via wheelchair without incident at 1447. Normal [facility] NURSNOTE Report called to jeane White at [facility] [phone]. Normal [facility] 30on 12-01-2024 30 Normal [facility] BASIC METABOLIC PANELon 11-04 Anion gap [Moles/Vol] 8 mmol/L Normal 7-20 [facility] Comment on above: Performed By: #### L [id number] ####[facility] ([facility])[address] [place] [address] Calcium [Mass/Vol] 7.9 mg/dL Low 8.6-10.3 [facility] Comment on above: Performed By: #### L [id number] ####[facility] ([facility])[address] [place] [address] Chloride [Moles/Vol] 97 mmol/L Low 98-107 [facility] Comment on above: Performed By: #### L [id number] ####[facility] ([facility])[address] [place] [address] CO2 [Moles/Vol] 37 mmol/L High 21-31 [facility] Comment on above: Performed By: #### L [id number] ####[facility] ([facility])[address] [place] [address] Creatinine [Mass/Vol] 0.79 mg/dL Normal 0.60-1.20 [facility] Comment on above: Performed By: #### L [id number] ####[facility] ([facility])[address] [place] [address] GLOMERULAR FILTRATION RATE ML/MIN/1.73 SQ M.PREDICTED 80.4 mL/min/1.73m*2 Normal >60.0 [facility] Comment on above: Result Comment: The [facility]???s estimated glomerular filtration rate (eGFR) will no longer include consideration of race in its calculation. The National Kidney Foundation???s eGFR Task Force developed new recommendations for [...] disproportionately affect any one group of individuals. Performed By: #### L [id number] ####[facility] ([facility])[address] [place] [address] Glucose [Mass/Vol] 96 mg/dL Normal 70-100 [facility] Comment on above: Performed By: #### L [id number] ####[facility] ([facility])[address] [place] [address] Potassium [Moles/Vol] 3.7 mmol/L Normal 3.5-5.1 [facility] Comment on above: Performed By: #### L [id number] ####[facility] [place] [address] Sodium [Moles/Vol] 138 mmol/L Normal 136-145 [facility] Comment on above: Performed By: #### L [id number] ####[facility] [place] [address] Urea nitrogen [Mass/Vol] 24 mg/dL Normal 7-25 [facility] Comment on above: Performed By: #### L [id number] ####[facility] ([facility])[address] [place] [address] UREA NITROGEN/CREATINI NE (MASS RATIO) IN SER/PLAS 30.4 Normal [facility] Comment on above: Performed By: #### L [id number] ####[facility] ([facility])[address] [place] [address] CBCon 12-01-2024 Erythrocyte distribution width (RBC) [Ratio] 13.6 % Normal 11.5-15.0 [facility] Comment on above: Performed By: #### L [id number] ####[facility] [place] [address] ERYTHROCYTE MEAN CORPUSCULAR HEMOGLOBIN CONCENTRATION (G/DL) BY AUTOMATED 31.9 g/dL Low 32.0-35.0 [facility] Comment on above: Performed By: #### L [id number] ####[facility] [place] [address] Hematocrit (Bld) [Volume fraction] 27.9 % Low 36.0-45.0 [facility] Comment on above: Performed By: #### L [id number] ####[facility] [place] [address] Hemoglobin (Bld) [Mass/Vol] 8.9 g/dL Low 12.0-15.0 [facility] Comment on above: Performed By: #### L [id number] ####[facility] ([facility])[address] [place] [address] MCH (RBC) [Entitic mass] 28.6 pg Normal 27.0-33.0 [facility] Comment on above: Performed By: #### L [id number] ####[facility] ([facility])[address] [place] [address] MCV (RBC) [Entitic vol] 89.7 fL Normal 82.0-98.0 [facility] Comment on above: Performed By: #### L [id number] ####[facility] ([facility])[address] [place] [address] PLATELETS (10*3/UL) IN BLOOD AUTOMATED COUNT 229 10*3/uL Normal 150-400 [facility] Comment on above: Performed By: #### L [id number] ####[facility] [facility] ([facility])[address] [place] [address] RBC (Bld) [#/Vol] 3.11 10*6/uL Low 3.80-5.00 [facility] Comment on above: Performed By: #### L [id number] ####[facility] ([facility])[address] [place] [address] WBC (Bld) [#/Vol] 8.34 10*3/uL Normal 4.00-10.60 [facility] Comment on above: Performed By: #### L [id number] ####[facility] ([facility])[address] [place] [address] MAGNESIUMon 12-01-2024 Magnesium [Mass/Vol] 2.3 mg/dL Normal 1.9-2.7 [facility] Comment on above: Performed By: #### L [id number] ####[facility] ([facility])[address] [place] [address] NURSNOTEon 12-01-2024 NURSNOTE Normal [facility] 30on 11-30-2024 30 Normal [facility] 30 Normal [facility] BASIC METABOLIC PANELon 04-2 Anion gap [Moles/Vol] 7 mmol/L Normal 7-20 [facility] Comment on above: Performed By: #### L [id number] ####[facility] (BEAKER)[address] [facility] [place] [address] Calcium [Mass/Vol] 8.0 mg/dL Low 8.6-10.3 [facility] Comment on above: Performed By: #### L [id number] ####[facility] (BEAKER)[address]VIN[address] [facility] [place] [address] Chloride [Moles/Vol] 97 mmol/L Low 98-107 [facility] Comment on above: Performed By: #### L [id number] ####[facility] (BEAKER)[address] [place] [address] CO2 [Moles/Vol] 36 mmol/L High 21-31 [facility] Comment on above: Performed By: #### L [id number] ####[facility] (BEAKER)[address] [facility] [address] Creatinine [Mass/Vol] 0.88 mg/dL Normal 0.60-1.20 [facility] Comment on above: Performed By: #### L [id number] ####[facility] (BEAKER)[address] the MarkNEW [facility] [place] [address] GLOMERULAR FILTRATION RATE ML/MIN/1.73 SQ M.PREDICTED 70.7 mL/min/1.73m*2 Normal >60.0 [facility] Comment on above: Result Comment: The [facility]???s estimated glomerular filtration rate (eGFR) will no longer include consideration of race in its calculation. The National Kidney Foundation???s eGFR Task Force developed new recommendations for [...] disproportionately affect any one group of individuals. Performed By: #### L [id number] ####[facility] (BEAKER)[address] [place] [address] Glucose [Mass/Vol] 98 mg/dL Normal 70-100 [facility] Comment on above: Performed By: #### L [id number] ####[facility] (BEAKER)[address] [place] [address] Potassium [Moles/Vol] 4.2 mmol/L Normal 3.5-5.1 [facility] Comment on above: Performed By: #### L [id number] ####[facility] (BEAKER)[address] [place] [address] Sodium [Moles/Vol] 136 mmol/L Normal 136-145 [facility] Comment on above: Performed By: #### L [id number] ####[facility] (BEAKER)[address] [place] [address] Urea nitrogen [Mass/Vol] 30 mg/dL High 7-25 [facility] Comment on above: Performed By: #### L [id number] ####[facility] (BEAKER)[address] [place] [address] UREA NITROGEN/CREATINI NE (MASS RATIO) IN SER/PLAS 34.1 Normal [facility] Comment on above: Performed By: #### L [id number] ####[facility] (BEAKER)[address] [place] [address] CBCon 11-30-2024 Erythrocyte distribution width (RBC) [Ratio] 13.9 % Normal 11.5-15.0 [facility] Comment on above: Performed By: #### L [id number] ####[facility] (BEAKER)[address] [place] [address] ERYTHROCYTE MEAN CORPUSCULAR HEMOGLOBIN CONCENTRATION (G/DL) BY AUTOMATED 31.0 g/dL Low 32.0-35.0 [facility] Comment on above: Performed By: #### L [id number] ####[facility] (BEAKER)[address] [place] [address] Hematocrit (Bld) [Volume fraction] 28.1 % Low 36.0-45.0 [facility] Comment on above: Performed By: #### L [id number] ####[facility] [place] [address] Hemoglobin (Bld) [Mass/Vol] 8.7 g/dL Low 12.0-15.0 [facility] Comment on above: Performed By: #### L [id number] ####[facility] ([facility])[address] [place] [address] MCH (RBC) [Entitic mass] 28.3 pg Normal 27.0-33.0 [facility] Comment on above: Performed By: #### L [id number] ####[facility] [place] [address] MCV (RBC) [Entitic vol] 91.5 fL Normal 82.0-98.0 [facility] Comment on above: Performed By: #### L [id number] ####[facility] ([facility])[address] [place] [address] PLATELETS (10*3/UL) IN BLOOD AUTOMATED COUNT 179 10*3/uL Normal 150-400 [facility] Comment on above: Performed By: #### L [id number] ####[facility] [place] [address] RBC (Bld) [#/Vol] 3.07 10*6/uL Low 3.80-5.00 [facility] Comment on above: Performed By: #### L [id number] ####[facility] (BEAKER)[address] [place] [address] WBC (Bld) [#/Vol] 11.22 10*3/uL High 4.00-10.60 [facility] Comment on above: Performed By: #### L [id number] ####[facility] (BEAKER)[address] [place] [address] CONSULTon 04-29-2025 CONSULT Normal [facility] MAGNESIUMon 11-30-2024 Magnesium [Mass/Vol] 2.2 mg/dL Normal 1.9-2.7 [facility] Comment on above: Performed By: #### L [id number] ####[facility] ([facility])[address] [place] [address] NURSNOTEon 11-30-2024 NURSNOTE Normal [facility] 30on 11-29-2024 30 Normal [facility] BASIC METABOLIC PANELon 11-03 Anion gap [Moles/Vol] 7 mmol/L Normal 7-20 [facility] Comment on above: Performed By: #### L [id number] ####[facility] ([facility])[address] [place] [address] Calcium [Mass/Vol] 8.2 mg/dL Low 8.6-10.3 [facility] Comment on above: Performed By: #### L [id number] ####[facility] ([facility])[address] [place] [address] Chloride [Moles/Vol] 98 mmol/L Normal 98-107 [facility] Comment on above: Performed By: #### L [id number] ####[facility] ([facility])[address] [place] [address] CO2 [Moles/Vol] 36 mmol/L High 21-31 [facility] Comment on above: Performed By: #### L [id number] ####[facility] ([facility])[address] [place] [address] Creatinine [Mass/Vol] 1.06 mg/dL Normal 0.60-1.20 [facility] Comment on above: Performed By: #### L [id number] ####[facility] ([facility])[address] [place] [address] GLOMERULAR FILTRATION RATE ML/MIN/1.73 SQ M.PREDICTED 56.5 mL/min/1.73m*2 Low >60.0 [facility] Comment on above: Result Comment: The [facility]???s estimated glomerular filtration rate (eGFR) will no longer include consideration of race in its calculation. The National Kidney Foundation???s eGFR Task Force developed new recommendations for [...] disproportionately affect any one group of individuals. Performed By: #### L [id number] ####[facility] ([facility])[address] [place] [address] Glucose [Mass/Vol] 106 mg/dL High 70-100 [facility] Comment on above: Performed By: #### L [id number] ####[facility] ([facility])[address] [place] [address] Potassium [Moles/Vol] 4.0 mmol/L Normal 3.5-5.1 [facility] Comment on above: Performed By: #### L [id number] ####[facility] ([facility])[address] [place] [address] Sodium [Moles/Vol] 137 mmol/L Normal 136-145 [facility] Comment on above: Performed By: #### L [id number] ####[facility] ([facility])[address] [place] [address] Urea nitrogen [Mass/Vol] 30 mg/dL High 7-25 [facility] Comment on above: Performed By: #### L [id number] ####[facility] ([facility])[address] [place] [address] UREA NITROGEN/CREATINI NE (MASS RATIO) IN SER/PLAS 28.3 Normal [facility] Comment on above: Performed By: #### L [id number] ####[facility] ([facility])[address] [place] [address] CBCon 11-29-2024 Erythrocyte distribution width (RBC) [Ratio] 14.1 % Normal 11.5-15.0 [facility] Comment on above: Performed By: #### L [id number] ####[facility] (BEAKER)[address] [address] ERYTHROCYTE MEAN CORPUSCULAR HEMOGLOBIN CONCENTRATION (G/DL) BY AUTOMATED 31.6 g/dL Low 32.0-35.0 [facility] Comment on above: Performed By: #### L [id number] ####[facility] (BEAKER)[address] [address] Hematocrit (Bld) [Volume fraction] 29.1 % Low 36.0-45.0 [facility] Comment on above: Performed By: #### L [id number] ####[facility] [address] Hemoglobin (Bld) [Mass/Vol] 9.2 g/dL Low 12.0-15.0 [facility] Comment on above: Performed By: #### L [id number] ####[facility] [place] [address] MCH (RBC) [Entitic mass] 28.8 pg Normal 27.0-33.0 [facility] Comment on above: Performed By: #### L [id number] ####[facility], [place] [address] MCV (RBC) [Entitic vol] 90.9 fL Normal 82.0-98.0 [facility] Comment on above: Performed By: #### L [id number] ####[facility] [place] [address] PLATELETS (10*3/UL) IN BLOOD AUTOMATED COUNT 147 10*3/uL Low 150-400 [facility] Comment on above: Performed By: #### L [id number] ####[facility] (BEAKER)[address] [place] [address] RBC (Bld) [#/Vol] 3.20 10*6/uL Low 3.80-5.00 [facility] Comment on above: Performed By: #### L [id number] ####[facility] (BEAKER)[address] [place] [address] WBC (Bld) [#/Vol] 15.84 10*3/uL High 4.00-10.60 [facility] Comment on above: Performed By: #### L [id number] ####[facility] (BEAKER)[address] [place] [address] MAGNESIUMon 11-29-2024 Magnesium [Mass/Vol] 2.1 mg/dL Normal 1.9-2.7 [facility] Comment on above: Performed By: #### L [id number] ####[facility] ([facility])[address] [place] [address] Magnesium [Mass/Vol] 2.1 mg/dL Normal 1.9-2.7 [facility] Comment on above: Performed By: #### L [id number] ####[facility] ([facility])[address] [place] [address] POTASSIUMon 11-29-2024 Potassium [Moles/Vol] 3.8 mmol/L Normal 3.5-5.1 [facility] Comment on above: Performed By: #### L [id number] ####[facility] ([facility])[address], [place] [address] 30on 11-28-2024 30 Normal [facility] 30 Normal [facility] BASIC METABOLIC PANELon 11-03 Anion gap [Moles/Vol] 8 mmol/L Normal 7-20 [facility] Comment on above: Performed By: #### L [id number] ####[facility] [place] [address] Calcium [Mass/Vol] 8.5 mg/dL Low 8.6-10.3 [facility] Comment on above: Performed By: #### L [id number] ####[facility] (BEAKER)[address] [place] [address] Chloride [Moles/Vol] 101 mmol/L Normal 98-107 [facility] Comment on above: Performed By: #### L [id number] ####[facility] (BEAKER)[address] [place] [address] CO2 [Moles/Vol] 35 mmol/L High 21-31 [facility] Comment on above: Performed By: #### L [id number] ####[facility] [place] [address] Creatinine [Mass/Vol] 1.03 mg/dL Normal 0.60-1.20 [facility] Comment on above: Performed By: #### L [id number] ####[facility] [place] [address] GLOMERULAR FILTRATION RATE ML/MIN/1.73 SQ M.PREDICTED 58.5 mL/min/1.73m*2 Low >60.0 [facility] Comment on above: Result Comment: The [facility]???s estimated glomerular filtration rate (eGFR) will no longer include consideration of race in its calculation. The National Kidney Foundation???s eGFR Task Force developed new recommendations for [...] disproportionately affect any one group of individuals. Performed By: #### L [id number] ####[facility] [place] [address] Glucose [Mass/Vol] 119 mg/dL High 70-100 [facility] Comment on above: Performed By: #### L [id number] ####[facility] (BEAKER)[address] [place] [address] Potassium [Moles/Vol] 4.0 mmol/L Normal 3.5-5.1 [facility] Comment on above: Performed By: #### L [id number] ####[facility] (BEAKER)[address] [place] [address] Sodium [Moles/Vol] 140 mmol/L Normal 136-145 [facility] Comment on above: Performed By: #### L [id number] ####[facility] (BEAKER)[address] [place] [address] Urea nitrogen [Mass/Vol] 25 mg/dL Normal 7-25 [facility] Comment on above: Performed By: #### L [id number] ####[facility] (BEAKER)[address] [place] [address] UREA NITROGEN/CREATINI NE (MASS RATIO) IN SER/PLAS 24.3 Normal [facility] Comment on above: Performed By: #### L [id number] ####[facility] [place] [address] CBCon 11-28-2024 Erythrocyte distribution width (RBC) [Ratio] 14.4 % Normal 11.5-15.0 [facility] Comment on above: Performed By: #### L [id number] ####[facility] ([facility])[address] [place] [address] ERYTHROCYTE MEAN CORPUSCULAR HEMOGLOBIN CONCENTRATION (G/DL) BY AUTOMATED 32.9 g/dL Normal 32.0-35.0 [facility] Comment on above: Performed By: #### L [id number] ####[facility] [place] [address] Hematocrit (Bld) [Volume fraction] 31.0 % Low 36.0-45.0 [facility] Comment on above: Performed By: #### L [id number] ####[facility] [place] [address] Hemoglobin (Bld) [Mass/Vol] 10.2 g/dL Low 12.0-15.0 [facility] Comment on above: Performed By: #### L [id number] ####[facility] [place] [address] MCH (RBC) [Entitic mass] 29.0 pg Normal 27.0-33.0 [facility] Comment on above: Performed By: #### L [id number] ####[facility] [place] [address] MCV (RBC) [Entitic vol] 88.1 fL Normal 82.0-98.0 [facility] Comment on above: Performed By: #### L [id number] ####[facility] ([facility])[address] [place] [address] PLATELETS (10*3/UL) IN BLOOD AUTOMATED COUNT 145 10*3/uL Low 150-400 [facility] Comment on above: Performed By: #### L [id number] ####[facility] ([facility])[address] [place] [address] RBC (Bld) [#/Vol] 3.52 10*6/uL Low 3.80-5.00 [facility] Comment on above: Performed By: #### L [id number] ####[facility] ([facility])[address] [place] [address] WBC (Bld) [#/Vol] 16.94 10*3/uL High 4.00-10.60 [facility] Comment on above: Performed By: #### L [id number] ####[facility] ([facility])[address] [place] [address] MAGNESIUMon 11-28-2024 Magnesium [Mass/Vol] 2.5 mg/dL Normal 1.9-2.7 [facility] Comment on above: Performed By: #### L [id number] ####[facility] ([facility])[address], [place] [address] Magnesium [Mass/Vol] 2.0 mg/dL Normal 1.9-2.7 [facility] Comment on above: Performed By: #### L [id number] ####[facility] ([facility])[address] [place] [address] POCT GLUCOSE METER UNSOLICIT ED RESULTSon 11-28-2024 Glucose [Mass/Vol] 115 mg/dL High 70-105 [facility] Comment on above: Order Comment: Waive d Testing in the ED is performed under the ED CLIA certificate #[id number]. Result Comment: [email or web address] Performed By: #### L [id number] ####[facility] ([facility])[address] [place] [address] POTASSIUMon 11-28-2024 Potassium [Moles/Vol] 3.9 mmol/L Normal 3.5-5.1 [facility] Comment on above: Performed By: #### L [id number] ####[facility] ([facility])[address] [place] [address] APTTon 11-27-2024 ACTIVATED PARTIAL THROMBOPLASTIN TIME IN PPP BY COAGULATION ASSAY 29.2 Seconds Normal 25.0-35.0 [facility] Comment on above: Result Comment: Clin ical significance of the APTT is questionable in the presence of heparin. Performed By: #### L [id number] ####[facility] ([facility])[address] [place] [address] ARTERIAL BLOOD GAS WITH CO-O XIMETRYon 11-27-2024 Base excess Calc (Bld) [Moles/Vol] 4.5 mmol/L High -2.0-3.0 [facility] Comment on above: Performed By: #### L [id number] ####[facility]PIR[facility] [id number] [place] [address] [facility] CARBOXYHEMOGLOBIN /HEMOGLOBIN TOTAL % IN BLOOD 1.7 % Normal 0.0-3.0 [facility] Comment on above: Performed By: #### L [id number] ####[facility] [id number] [place] [address] [place] CO2 (Bld) [Partial pressure] 43 mm[Hg] Normal 35-48 [facility] Comment on above: Performed By: #### L [id number] ####[facility] RESP[facility] [id number] [place] [address] [place] DEOXYGENATED HEMOGLOBIN IN BLOOD 0.4 % Low 1-5 [facility] Comment on above: Performed By: #### L [id number] ####[facility] RESP[facility] [id number] [place] [address] [place] HCO3 (Bld) [Moles/Vol] 29.2 mmol/L High 21.0-28.0 [facility] Comment on above: Performed By: #### L [id number] ####[facility] RESP[facility] [id number] [place] [address] [facility] Hemoglobin (Bld) [Mass/Vol] 12.1 g/dL Normal 11.7-17.4 [facility] Comment on above: Performed By: #### L [id number] ####[facility] RESPIR[facility] [id number] [place] [address] [facility] LPM 3 Normal [facility] Comment on above: Performed By: #### L [id number] ####[facility] RESPIR[facility] [id number] [place] [address] [facility] METHEMOGLOBIN/100 IN BLOOD 0.9 % Normal 0.0-1.5 [facility] Comment on above: Performed By: #### L [id number] ####[facility] RESPIRAT[facility] [id number] [place] [address] [facility] Oxygen (Bld) [Partial pressure] 106 mm[Hg] High 83-100 [facility] Comment on above: Performed By: #### L [id number] ####[facility] RESPIRAT[facility] [id number] [place] [address] [facility] OXYGEN SATURATION (%) IN ARTERIAL BLOOD 99.6 % High 94.0-98.0 [facility] Comment on above: Performed By: #### L [id number] ####[facility] RESPIRAT[facility] [id number] [place] [address] [facility] OXYGENATED HEMOGLOBIN IN BLOOD 97.0 % High 90.0-95.0 [facility] Comment on above: Performed By: #### L [id number] ####[facility] RESPIRAT[facility] [id number] [place] [address] [facility] pH (Bld) 7.44 [pH] Normal 7.35-7.45 [facility] Comment on above: Performed By: #### L [id number] ####[facility] RESPIR[facility] [id number] [place] [address] [facility] SOURCE OF OXYGEN Nasal cannula Normal [facility] Comment on above: Performed By: #### L [id number] ####[facility] RESPIRATORY [id number] [place] [address] [place] BASIC METABOLIC PANELon 04-2 Anion gap [Moles/Vol] 9 mmol/L Normal 7-20 [facility] Comment on above: Performed By: #### L [id number] ####[facility] (BEAKER)[address] [place] [address] Calcium [Mass/Vol] 9.0 mg/dL Normal 8.6-10.3 [facility] Comment on above: Performed By: #### L [id number] ####[facility] (BEAKER)[address] [place] [address] Chloride [Moles/Vol] 108 mmol/L High 98-107 [facility] Comment on above: Performed By: #### L [id number] ####[facility] (BEAKER)[address] [place] [address] CO2 [Moles/Vol] 29 mmol/L Normal 21-31 [facility] Comment on above: Performed By: #### L [id number] ####[facility] (BEAKER)[address] [place] [address] Creatinine [Mass/Vol] 0.83 mg/dL Normal 0.60-1.20 [facility] Comment on above: Performed By: #### L [id number] ####[facility] (BEAKER)[address] [place] [address] GLOMERULAR FILTRATION RATE ML/MIN/1.73 SQ M.PREDICTED 75.8 mL/min/1.73m*2 Normal >60.0 [facility] Comment on above: Result Comment: The [facility]???s estimated glomerular filtration rate (eGFR) will no longer include consideration of race in its calculation. The National Kidney Foundation???s eGFR Task Force developed new recommendations for [...] disproportionately affect any one group of individuals. Performed By: #### L [id number] ####[facility] ([facility])[address] [place] [address] Glucose [Mass/Vol] 119 mg/dL High 70-100 [facility] Comment on above: Performed By: #### L [id number] ####[facility] ([facility])[address] [place] [address] Potassium [Moles/Vol] 4.2 mmol/L Normal 3.5-5.1 [facility] Comment on above: Performed By: #### L [id number] ####[facility] ([facility])[address] [place] [address] Sodium [Moles/Vol] 142 mmol/L Normal 136-145 [facility] Comment on above: Performed By: #### L [id number] ####[facility] ([facility])[address] [place] [address] Urea nitrogen [Mass/Vol] 19 mg/dL Normal 7-25 [facility] Comment on above: Performed By: #### L [id number] ####[facility] [facility] [place] [address] UREA NITROGEN/CREATINI NE (MASS RATIO) IN SER/PLAS 22.9 Normal [facility] Comment on above: Performed By: #### L [id number] ####[facility] ([facility])[address] [place] [address] CALCIUM, IONIZEDon CALCIUM IONIZED (MMOL/L) IN BLOOD 1.29 mmol/L Normal 1.15-1.33 [facility] Comment on above: Performed By: #### C ALCIUM, IONIZED ####[facility] RESPIRATORY [id number] [place] [address] [place] CBCon 11-27-2024 Erythrocyte distribution width (RBC) [Ratio] 13.9 % Normal 11.5-15.0 [facility] Comment on above: Performed By: #### L [id number] ####[facility] (BEAKER)[address] [address] ERYTHROCYTE MEAN CORPUSCULAR HEMOGLOBIN CONCENTRATION (G/DL) BY AUTOMATED 33.9 g/dL Normal 32.0-35.0 [facility] Comment on above: Performed By: #### L [id number] ####[facility] (BEAKER)[address] [address] Hematocrit (Bld) [Volume fraction] 33.9 % Low 36.0-45.0 [facility] Comment on above: Performed By: #### L [id number] ####[facility] (BEAKER)[address] [address] Hemoglobin (Bld) [Mass/Vol] 11.5 g/dL Low 12.0-15.0 [facility] Comment on above: Performed By: #### L [id number] ####[facility] (BEAKER)[address] [address] MCH (RBC) [Entitic mass] 29.0 pg Normal 27.0-33.0 [facility] Comment on above: Performed By: #### L [id number] ####[facility] (BEAKER)[address] [address] MCV (RBC) [Entitic vol] 85.4 fL Normal 82.0-98.0 [facility] Comment on above: Performed By: #### L [id number] ####[facility] (BEAKER)[address] [place] [address] PLATELETS (10*3/UL) IN BLOOD AUTOMATED COUNT 156 10*3/uL Normal 150-400 [facility] Comment on above: Performed By: #### L [id number] ####[facility] (BEAKER)[address] [address] RBC (Bld) [#/Vol] 3.97 10*6/uL Normal 3.80-5.00 [facility] Comment on above: Performed By: #### L [id number] ####[facility] ([facility])[address] [place] [address] WBC (Bld) [#/Vol] 13.70 10*3/uL High 4.00-10.60 [facility] Comment on above: Performed By: #### L [id number] ####[facility] ([facility])[address] [place] [address] CONSULTon 11-27-2024 CONSULT Normal [facility] LACTIC ACID, PLASMAon 2024 LACTATE (MMOL/L) IN SER/PLAS 1.5 mmol/L Normal 0.5-2.2 [facility] Comment on above: Order Comment: Timed 4 hours after last lactic acid Performed By: #### L [id number] ####[facility] ([facility])[address] [place] [address] MAGNESIUMon 11-27-2024 Magnesium [Mass/Vol] 2.0 mg/dL Normal 1.9-2.7 [facility] Comment on above: Performed By: #### L [id number] ####[facility] ([facility])[address] [place] [address] PHOSPHORUSon 11-27-2024 Magnesium [Mass/Vol] 4.1 mg/dL Normal 2.5-5.0 [facility] Comment on above: Performed By: #### L [id number] ####[facility] ([facility])[address] [place] [address] POCT GLUCOSE METER UNSOLICIT ED RESULTSon 11-27-2024 Glucose [Mass/Vol] 132 mg/dL High 70-105 [facility] Comment on above: Order Comment: Waive d Testing in the ED is performed under the ED CLIA certificate #[id number]. Result Comment: agil len2 Performed By: #### L [id number] ####[facility] ([facility])[address] [place] [address] Glucose [Mass/Vol] 121 mg/dL High 70-105 [facility] Comment on above: Order Comment: Waive d Testing in the ED is performed under the ED CLIA certificate #[id number]. Result Comment: ebol tz Performed By: #### L [id number] ####[facility] (BEAKER)[address] [place] [address] Glucose [Mass/Vol] 130 mg/dL High 70-105 [facility] Comment on above: Order Comment: Waive d Testing in the ED is performed under the ED CLIA certificate #[id number]. Result Comment: ebol tz Performed By: #### L [id number] ####[facility] (BEAKER)[address] [place] [address] Glucose [Mass/Vol] 113 mg/dL High 70-105 [facility] Comment on above: Order Comment: Waive d Testing in the ED is performed under the ED CLIA certificate #[id number]. Result Comment: ebol tz Performed By: #### L [id number] ####[facility] (AKER)[address] [place] [address] Glucose [Mass/Vol] 115 mg/dL High 70-105 [facility] Comment on above: Order Comment: Waive d Testing in the ED is performed under the ED CLIA certificate #[id number]. Result Comment: agil len2 Performed By: #### L [id number] ####[facility] (AKER)[address] [place] [address] Glucose [Mass/Vol] 101 mg/dL Normal 70-105 [facility] Comment on above: Order Comment: Waive d Testing in the ED is performed under the ED CLIA certificate #[id number]. Result Comment: agil len2 Performed By: #### L [id number] ####[facility] (BEAKER)[address] [place] [address] Glucose [Mass/Vol] 112 mg/dL High 70-105 [facility] Comment on above: Order Comment: Waive d Testing in the ED is performed under the ED CLIA certificate #[id number]. Result Comment: agil len2 Performed By: #### L [id number] ####[facility] (BEAKER)[address] [place] [address] Glucose [Mass/Vol] 119 mg/dL High 70-105 [facility] Comment on above: Order Comment: Waive d Testing in the ED is performed under the ED CLIA certificate #[id number]. Result Comment: agil len2 Performed By: #### L [id number] ####[facility] (BEAKER)[address] [place] [address] Glucose [Mass/Vol] 112 mg/dL High 70-105 [facility] Comment on above: Order Comment: Waive d Testing in the ED is performed under the ED CLIA certificate #[id number]. Result Comment: agil len2 Performed By: #### L [id number] ####[facility] (BEAKER)[address] [facility] [address] Glucose [Mass/Vol] 101 mg/dL Normal 70-105 [facility] Comment on above: Order Comment: Waive d Testing in the ED is performed under the ED CLIA certificate #[id number]. Result Comment: agil len2 Performed By: #### L [id number] ####[facility] (AKER)[address] [facility] [address] Glucose [Mass/Vol] 112 mg/dL High 70-105 [facility] Comment on above: Order Comment: Waive d Testing in the ED is performed under the ED CLIA certificate #[id number]. Result Comment: agil len2 Performed By: #### L [id number] ####[facility] (BEAKER)[address] [facility] [place] [address] Glucose [Mass/Vol] 128 mg/dL High 70-105 [facility] Comment on above: Order Comment: Waive d Testing in the ED is performed under the ED CLIA certificate #[id number]. Result Comment: [email or web address] [email or web address] Performed By: #### L [id number] ####[facility] (BEAKER)[address] [place] [address] POTASSIUM, WHOLE BLOODon Potassium [Moles/Vol] 4.3 mmol/L Normal 3.5-5.1 [facility] Comment on above: Performed By: #### P OTASSIUM, WHOLE BLOOD ####[facility] RESPIRATORY [id number] [place] [address] [facility] PROTIME-INRon 11-27-2024 INR IN PPP BY COAGULATION ASSAY 1.12 High 0.90-1.10 [facility] Comment on above: Result Comment: ACCC P RECOMMENDED INR FOR WARFARIN THERAPY CONDITION INRPROPHYLAXIS OF VENOUS THROMBOSIS 2-3(HIGH-RISK SURGERY)TREATMENT OF VENOUS THROMBOSIS 2-3TREATMENT OF PULMONARY EMBOLISM 2-3PREVENTION OF SYSTEMIC EMBOLISM: 2-3 ACUTE MYOCARDIAL INFARCTION TISSUE HEART VALVES VALVULAR HEART DISEASE ATRIAL FIBRILLATION RECURRENT SYSTEMIC EMBOLISMMECHANICAL HEART VALVE 2.5-3.5 FROM: ORAL ANTICOAGULANTS. MECHANISM OF ACTION, CLINICAL EFFECTIVENESS, AND OPTIMAL THERAPEUTIC RANGE. CHEST 1995;108:231S-246S. Performed By: #### L [id number] ####[facility] (BEAKER)[address] [place] [address] PROTHROMBIN TIME (PT) IN PPP BY COAGULATION ASSAY 14.4 Seconds Normal 12.3-14.8 [facility] Comment on above: Performed By: #### L [id number] ####[facility] (BEAKER)[address] [place] [address] SODIUM, WHOLE BLOODon 2024 SODIUM, WHOLE BLOOD 139 Normal 136-145 [facility] Comment on above: Performed By: #### S ODIUM, WHOLE BLOOD ####[facility] RESPIRATORY [id number] [place] [address] [facility] 30on 11-26-2024 30 Normal [facility] 30 Normal [facility] ANESon 11-26-2024 ANES Normal [facility] ANES Normal [facility] ANTI-XA (HEPARIN LEVEL)on HEPARIN UNFRACTIONATED (U/ML) IN PPP BY CHROMOGENIC METHOD 0.29 IU/mL Low 0.3-0.7 [facility] Comment on above: Result Comment: Shakila roxaban and Apixaban will interfere with the anti Xa assay used to monitor UFH and LMWH. Performed By: #### L [id number] ####[facility] ([facility])[address] [place] [address] APTTon 11-26-2024 ACTIVATED PARTIAL THROMBOPLASTIN TIME IN PPP BY COAGULATION ASSAY 32.9 Seconds Normal 25.0-35.0 [facility] Comment on above: Result Comment: Clin ical significance of the APTT is questionable in the presence of heparin. Performed By: #### L [id number] ####[facility] ([facility])[address] [place] [address] ACTIVATED PARTIAL THROMBOPLASTIN TIME IN PPP BY COAGULATION ASSAY 36.6 Seconds High 25.0-35.0 [facility] Comment on above: Result Comment: Clin ical significance of the APTT is questionable in the presence of heparin. Performed By: #### L [id number] ####[facility] ([facility])[address] [place] [address] ACTIVATED PARTIAL THROMBOPLASTIN TIME IN PPP BY COAGULATION ASSAY 84.9 Seconds High 25.0-35.0 [facility] Comment on above: Result Comment: Clin ical significance of the APTT is questionable in the presence of heparin. Performed By: #### L [id number] ####[facility] ([facility])[address] [place] [address] Anesthesiaon 11-26-2024 Anesthesia Normal [facility] BASIC METABOLIC PANELon 11-03 Anion gap [Moles/Vol] 11 mmol/L Normal 7-20 [facility] Comment on above: Performed By: #### L [id number] ####[facility] ([facility])[address] [place] [address] Calcium [Mass/Vol] 9.9 mg/dL Normal 8.6-10.3 [facility] Comment on above: Performed By: #### L [id number] ####[facility] ([facility])[address] [place] [address] Chloride [Moles/Vol] 107 mmol/L Normal 98-107 [facility] Comment on above: Performed By: #### L [id number] ####[facility] ([facility])[address] [place] [address] CO2 [Moles/Vol] 27 mmol/L Normal 21-31 [facility] Comment on above: Performed By: #### L [id number] ####[facility] ([facility])[address] [place] [address] Creatinine [Mass/Vol] 0.84 mg/dL Normal 0.60-1.20 [facility] Comment on above: Performed By: #### L [id number] ####[facility] ([facility])[address] [place] [address] GLOMERULAR FILTRATION RATE ML/MIN/1.73 SQ M.PREDICTED 74.7 mL/min/1.73m*2 Normal >60.0 [facility] Comment on above: Result Comment: The [facility]???s estimated glomerular filtration rate (eGFR) will no longer include consideration of race in its calculation. The National Kidney Foundation???s eGFR Task Force developed new recommendations for [...] disproportionately affect any one group of individuals. Performed By: #### L [id number] ####[facility] ([facility])[address] [place] [address] Glucose [Mass/Vol] 214 mg/dL High 70-100 [facility] Comment on above: Performed By: #### L [id number] ####[facility] ([facility])[address] [place] [address] Potassium [Moles/Vol] 4.4 mmol/L Normal 3.5-5.1 [facility] Comment on above: Performed By: #### L [id number] ####[facility] [place] [address] Sodium [Moles/Vol] 141 mmol/L Normal 136-145 [facility] Comment on above: Performed By: #### L [id number] ####[facility] [place] [address] Urea nitrogen [Mass/Vol] 14 mg/dL Normal 7-25 [facility] Comment on above: Performed By: #### L [id number] ####[facility] ([facility])[address] [place] [address] UREA NITROGEN/CREATINI NE (MASS RATIO) IN SER/PLAS 16.7 Normal [facility] Comment on above: Performed By: #### L [id number] ####[facility] [place] [address] Anion gap [Moles/Vol] 14 mmol/L Normal 7-20 [facility] Comment on above: Performed By: #### L [id number] ####[facility] [place] [address] Calcium [Mass/Vol] 10.2 mg/dL Normal 8.6-10.3 [facility] Comment on above: Performed By: #### L [id number] ####[facility] (BEAKER)[address] [place] [address] Chloride [Moles/Vol] 108 mmol/L High 98-107 [facility] Comment on above: Performed By: #### L [id number] ####[facility] (BEAKER)[address] [place] [address] CO2 [Moles/Vol] 25 mmol/L Normal 21-31 [facility] Comment on above: Performed By: #### L [id number] ####[facility] (BEAKER)[address] [place] [address] Creatinine [Mass/Vol] 0.75 mg/dL Normal 0.60-1.20 [facility] Comment on above: Performed By: #### L [id number] ####[facility] ([facility])[address] [place] [address] GLOMERULAR FILTRATION RATE ML/MIN/1.73 SQ M.PREDICTED 85.6 mL/min/1.73m*2 Normal >60.0 [facility] Comment on above: Result Comment: The [facility]???s estimated glomerular filtration rate (eGFR) will no longer include consideration of race in its calculation. The National Kidney Foundation???s eGFR Task Force developed new recommendations for [...] disproportionately affect any one group of individuals. Performed By: #### L [id number] ####[facility] ([facility])[address] [place] [address] Glucose [Mass/Vol] 129 mg/dL High 70-100 [facility] Comment on above: Performed By: #### L [id number] ####[facility] ([facility])[address] [place] [address] Potassium [Moles/Vol] 4.2 mmol/L Normal 3.5-5.1 [facility] Comment on above: Performed By: #### L [id number] ####[facility] ([facility])[address] [place] [address] Sodium [Moles/Vol] 143 mmol/L Normal 136-145 [facility] Comment on above: Performed By: #### L [id number] ####[facility] ([facility])[address] [place] [address] Urea nitrogen [Mass/Vol] 12 mg/dL Normal 7-25 [facility] Comment on above: Performed By: #### L [id number] ####[facility] ([facility])[address] [place] [address] UREA NITROGEN/CREATINI NE (MASS RATIO) IN SER/PLAS 16.0 Normal [facility] Comment on above: Performed By: #### L [id number] ####[facility] (BEAKER)[address] [place] [address] Anion gap [Moles/Vol] 6 mmol/L Low 7-20 [facility] Comment on above: Performed By: #### L [id number] ####[facility] (BEAKER)[address] [place] [address] Calcium [Mass/Vol] 8.1 mg/dL Low 8.6-10.3 [facility] Comment on above: Performed By: #### L [id number] ####[facility] (BEAKER)[address] [facility] [place] [address] Chloride [Moles/Vol] 106 mmol/L Normal 98-107 [facility] Comment on above: Performed By: #### L [id number] ####[facility] (BEAKER)[address] [place] [address] CO2 [Moles/Vol] 30 mmol/L Normal 21-31 [facility] Comment on above: Performed By: #### L [id number] ####[facility] (BEAKER)[address] [place] [address] Creatinine [Mass/Vol] 0.78 mg/dL Normal 0.60-1.20 [facility] Comment on above: Performed By: #### L [id number] ####[facility] (BEAKER)[address] [place] [address] GLOMERULAR FILTRATION RATE ML/MIN/1.73 SQ M.PREDICTED 81.7 mL/min/1.73m*2 Normal >60.0 [facility] Comment on above: Result Comment: The [facility]???s estimated glomerular filtration rate (eGFR) will no longer include consideration of race in its calculation. The National Kidney Foundation???s eGFR Task Force developed new recommendations for [...] disproportionately affect any one group of individuals. Performed By: #### L [id number] ####[facility] ([facility])[address] [facility] [address] Glucose [Mass/Vol] 96 mg/dL Normal 70-100 [facility] Comment on above: Performed By: #### L [id number] ####[facility] ([facility])[address] [place] [address] Potassium [Moles/Vol] 3.8 mmol/L Normal 3.5-5.1 [facility] Comment on above: Performed By: #### L [id number] ####[facility] ([facility])[address] [facility] [address] Sodium [Moles/Vol] 138 mmol/L Normal 136-145 [facility] Comment on above: Performed By: #### L [id number] ####[facility] ([facility])[address] [place] [address] Urea nitrogen [Mass/Vol] 13 mg/dL Normal 7-25 [facility] Comment on above: Performed By: #### L [id number] ####[facility] ([facility])[address]zioNEW [facility] [place] [address] UREA NITROGEN/CREATINI NE (MASS RATIO) IN SER/PLAS 16.7 Normal [facility] Comment on above: Performed By: #### L [id number] ####[facility] ([facility])[address] [place] [address] CALCIUM, IONIZEDon CALCIUM IONIZED (MMOL/L) IN BLOOD 1.39 mmol/L High 1.15-1.33 [facility] Comment on above: Performed By: #### C ALCIUM, IONIZED ####[facility] RESPIRATORY [id number] [place] [address] [place] CBCon 11-26-2024 Erythrocyte distribution width (RBC) [Ratio] 13.4 % Normal 11.5-15.0 [facility] Comment on above: Performed By: #### L [id number] ####[facility] (BEAKER)[address] [place] [address] ERYTHROCYTE MEAN CORPUSCULAR HEMOGLOBIN CONCENTRATION (G/DL) BY AUTOMATED 34.2 g/dL Normal 32.0-35.0 [facility] Comment on above: Performed By: #### L [id number] ####[facility] [place] [address] Hematocrit (Bld) [Volume fraction] 36.8 % Normal 36.0-45.0 [facility] Comment on above: Performed By: #### L [id number] ####[facility] [place] [address] Hemoglobin (Bld) [Mass/Vol] 12.6 g/dL Normal 12.0-15.0 [facility] Comment on above: Performed By: #### L [id number] ####[facility] [place] [address] MCH (RBC) [Entitic mass] 28.6 pg Normal 27.0-33.0 [facility] Comment on above: Performed By: #### L [id number] ####[facility] (BEAKER)[address] [place] [address] MCV (RBC) [Entitic vol] 83.4 fL Normal 82.0-98.0 [facility] Comment on above: Performed By: #### L [id number] ####[facility] (BEAKER)[address] [place] [address] PLATELETS (10*3/UL) IN BLOOD AUTOMATED COUNT 149 10*3/uL Low 150-400 [facility] Comment on above: Performed By: #### L [id number] ####[facility] (BEAKER)[address] [place] [address] RBC (Bld) [#/Vol] 4.41 10*6/uL Normal 3.80-5.00 [facility] Comment on above: Performed By: #### L [id number] ####[facility] (BEAKER)[address] [place] [address] WBC (Bld) [#/Vol] 13.74 10*3/uL High 4.00-10.60 [facility] Comment on above: Performed By: #### L [id number] ####[facility] (BEAKER)[address] [place] [address] Erythrocyte distribution width (RBC) [Ratio] 13.3 % Normal 11.5-15.0 [facility] Comment on above: Order Comment: Timed 4 hours after last CBC Performed By: #### L [id number] ####[facility] ([facility])[address] [place] [address] ERYTHROCYTE MEAN CORPUSCULAR HEMOGLOBIN CONCENTRATION (G/DL) BY AUTOMATED 33.4 g/dL Normal 32.0-35.0 [facility] Comment on above: Order Comment: Timed 4 hours after last CBC Performed By: #### L [id number] ####[facility] ([facility])[address] [place] [address] Hematocrit (Bld) [Volume fraction] 32.9 % Low 36.0-45.0 [facility] Comment on above: Order Comment: Timed 4 hours after last CBC Performed By: #### L [id number] ####[facility] (BEAKER)[address] [place] [address] Hemoglobin (Bld) [Mass/Vol] 11.0 g/dL Low 12.0-15.0 [facility] Comment on above: Order Comment: Timed 4 hours after last CBC Performed By: #### L [id number] ####[facility] (BEAKER)[address] [place] [address] MCH (RBC) [Entitic mass] 28.9 pg Normal 27.0-33.0 [facility] Comment on above: Order Comment: Timed 4 hours after last CBC Performed By: #### L [id number] ####[facility] (BEAKER)[address] [place] [address] MCV (RBC) [Entitic vol] 86.4 fL Normal 82.0-98.0 [facility] Comment on above: Order Comment: Timed 4 hours after last CBC Performed By: #### L [id number] ####[facility] (BEAKER)[address] [place] [address] PLATELETS (10*3/UL) IN BLOOD AUTOMATED COUNT 121 10*3/uL Low 150-400 [facility] Comment on above: Order Comment: Timed 4 hours after last CBC Performed By: #### L [id number] ####[facility] [address] RBC (Bld) [#/Vol] 3.81 10*6/uL Normal 3.80-5.00 [facility] Comment on above: Order Comment: Timed 4 hours after last CBC Performed By: #### L [id number] ####[facility] ([facility])[address], [place] [address] WBC (Bld) [#/Vol] 12.64 10*3/uL High 4.00-10.60 [facility] Comment on above: Order Comment: Timed 4 hours after last CBC Performed By: #### L [id number] ####[facility], [place] [address] Erythrocyte distribution width (RBC) [Ratio] 12.8 % Normal 11.5-15.0 [facility] Comment on above: Performed By: #### L [id number] ####[facility] ([facility], [place] [address] ERYTHROCYTE MEAN CORPUSCULAR HEMOGLOBIN CONCENTRATION (G/DL) BY AUTOMATED 31.6 g/dL Low 32.0-35.0 [facility] Comment on above: Performed By: #### L [id number] ####[facility] (BEAKER)[address] [place] [address] Hematocrit (Bld) [Volume fraction] 31.3 % Low 36.0-45.0 [facility] Comment on above: Performed By: #### L [id number] ####[facility] ([facility] [place] [address] Hemoglobin (Bld) [Mass/Vol] 9.9 g/dL Low 12.0-15.0 [facility] Comment on above: Performed By: #### L [id number] ####[facility] ([facility] [place] [address] MCH (RBC) [Entitic mass] 27.8 pg Normal 27.0-33.0 [facility] Comment on above: Performed By: #### L [id number] ####[facility] ([facility])[address] [place] [address] MCV (RBC) [Entitic vol] 87.9 fL Normal 82.0-98.0 [facility] Comment on above: Performed By: #### L [id number] ####[facility] ([facility])[address] [place] [address] PLATELETS (10*3/UL) IN BLOOD AUTOMATED COUNT 262 10*3/uL Normal 150-400 [facility] Comment on above: Performed By: #### L [id number] ####[facility] ([facility])[address] [place] [address] RBC (Bld) [#/Vol] 3.56 10*6/uL Low 3.80-5.00 [facility] Comment on above: Performed By: #### L [id number] ####[facility] ([facility])[address] [place] [address] WBC (Bld) [#/Vol] 8.31 10*3/uL Normal 4.00-10.60 [facility] Comment on above: Performed By: #### L [id number] ####[facility] ([facility] [place] [address] EXTEM Con 11-26-2024 EXTEM C A10 52 mm Normal 45-62 [facility] Comment on above: Performed By: #### E XTEM C ####[facility] RESPIRATORY [id number] [place] [address] [place] EXTEM C A20 59 mm Normal 54-69 [facility] Comment on above: Performed By: #### E XTEM C ####[facility] RESPIRATORY [id number] [place] [address] [place] EXTEM C A5 42 mm Normal 33-52 [facility] Comment on above: Performed By: #### E XTEM C ####[facility] RESPIRATORY [id number] [place] [address] 95 s High 51-73 [facility] Comment on above: Performed By: #### E XTEM C ####[facility] RESPIRATORY [id number] [place] [address] [place] EXTEM C LI60 100 % Normal 94-100 [facility] Comment on above: Performed By: #### E XTEM C ####[facility] RESPIRATORY [id number] [place] [address] [place] EXTEM C MCF 61 mm Normal 57-72 [facility] Comment on above: Performed By: #### E XTEM C ####[facility] RESPIRATORY [id number] [place] [address] [place] EXTEM C ML 1 % Normal 0-6 [facility] Comment on above: Result Comment: NE^P reliminary Result Performed By: #### E XTEM C ####[facility] RESPIRATORY [id number] [place] [address] [place] FIBRINOGENon 11-26-2024 Magnesium [Mass/Vol] 222 mg/dL Normal 150-425 [facility] Comment on above: Performed By: #### L [id number] ####[facility] (BEAKER)[address] [place] [address] FIBTEM Con 11-26-2024 FIBTEM C A10 11 mm Normal 6-17 [facility] Comment on above: Performed By: #### F IBTEM C ####[facility] RESPIRATORY [id number] [place] [address] [place] FIBTEM C A20 11 mm Normal 6-18 [facility] Comment on above: Performed By: #### F IBTEM C ####[facility] RESPIRATORY [id number] [place] [address] [place] FIBTEM C A5 9 mm Normal 5-16 [facility] Comment on above: Performed By: #### F IBTEM C ####[facility] RESPIRATORY [id number] [place] [address] [place] FIBTEM C MCF 12 mm Normal 6-19 [facility] Comment on above: Performed By: #### F IBTEM C ####[facility] RESPIRATORY [id number] [place] [address] [place] HEPTEM Con 11-26-2024 HEPTEM C A10 48 mm Normal 44-61 [facility] Comment on above: Performed By: #### H EPTEM C ####[facility] RESPIRATORY [id number] [place] [address] [facility] HEPTEM C A20 56 mm Normal 52-67 [facility] Comment on above: Performed By: #### H EPTEM C ####[facility] RESPIRATORY [id number] [place] [address] [place] HEPTEM C A5 38 mm Normal 33-51 [facility] Comment on above: Performed By: #### H EPTEM C ####[facility] RESPIRATORY [id number] [place] [address] 226 s High 141-215 [facility] Comment on above: Performed By: #### H EPTEM C ####[facility] RESPIRATORY [id number] [place] [address] [place] HEPTEM C MCF 58 mm Normal 54-69 [facility] Comment on above: Performed By: #### H EPTEM C ####[facility] RESPIRATORY [id number] [place] [address] [facility] HISTOLOGY - TISSUE EXAMon LAB AP CASE REPORT Normal [facility] Comment on above: Order Comment: Pre-o p diagnosis:Multi-vessel coronary artery stenosis [I25.10] Result Comment: Surg ical Pathology Case: [id number] Provider: Mayra Young MD Collected: 11/26/2024 1051Ordering Location: [facility] Main Operating Room Received: 11/26/2024 1503Pathologist: FRANCA Vanegaspecimen: Heart, LEFT ATRIAL APPENDAGE Performed By: #### L [id number] ####[facility] (BEAKER)[address] [place] [address] LAB AP CLINICAL INFORMATION [facility] Comment on above: Order Comment: Pre-o p diagnosis:Multi-vessel coronary artery stenosis [I25.10] Result Comment: Post -Op [id number] - Multi-vessel coronary artery stenosis [ICD-10-CM] Performed By: #### L [id number] ####[facility] (BEAKER)[address] [facility] [place] [address] LAB AP GROSS DESCRIPTION A. Heart. [facility] Comment on above: Order Comment: Pre-o p diagnosis:Multi-vessel coronary artery stenosis [I25.10] Result Comment: The specimen is received in formalin labeled Shruthi Levar and left atrial appendage. It consists of a 2.8 x 2.6 x 0.9 cm martinez-pink, rubbery piece of muscular tissue with a moderate amount of attached martinez-yellow, lobulated fat. The resection margin is inked black. The specimen is serially sectioned to reveal martinez-pink, trabeculated, homogeneous cut surfaces. Bike Designer sections are submitted in [address], Pathologists' Hotel Service Manager Danika Pedro [employer]' [employer] Service Manager Performed By: #### L [id number] ####[facility] (BEAKER)[address] [place] [address] LAB AP MICROSCOPIC DESCRIPTION Microscopic examination performed. [facility] Comment on above: Order Comment: Pre-o p diagnosis:Multi-vessel coronary artery stenosis [I25.10] Performed By: #### L [id number] ####[facility] (BEAKER)[address] [place] [address] LAB AP REPORT FINAL DIAGNOSIS NARRATIVE [facility] Comment on above: Order Comment: Pre-o p diagnosis:Multi-vessel coronary artery stenosis [I25.10] Result Comment: Hear t, left atrial appendage, resection: - Benign cardiac muscle, consistent with atrial appendage Performed By: #### L [id number] ####[facility] ([facility])[address] [place] [address] HPon 11-26-2024 HP H&P reviewed. The daisy lorenz was examined and there are no changes to the H&P. Normal [facility] INTEM Con 11-26-[address] 365.0 s High 139-205 [facility] Comment on above: Result Comment: NE^P reliminary Result>^Outside Reportable Range Performed By: #### I NTEM C ####[facility] RESPIRATORY [id number] [place] [address] [place] LACTIC ACID WITH 4 HOUR REFL EXon 11-26-2024 LACTATE (MMOL/L) IN SER/PLAS 2.3 mmol/L High 0.5-2.2 [facility] Comment on above: Performed By: #### L [id number] ####[facility] ([facility])[address] [place] [address] LACTATE (MMOL/L) IN SER/PLAS 4.5 mmol/L Critically high 0.5-2.2 [facility] Comment on above: Performed By: #### L [id number] ####[facility] ([facility])[address] [place] [address] MAGNESIUMon 11-26-2024 Magnesium [Mass/Vol] 2.2 mg/dL Normal 1.9-2.7 [facility] Comment on above: Performed By: #### L [id number] ####[facility] ([facility])[address] [facility] [address] Magnesium [Mass/Vol] 2.4 mg/dL Normal 1.9-2.7 [facility] Comment on above: Performed By: #### L [id number] ####[facility] ([facility])[address] [address] Magnesium [Mass/Vol] 1.8 mg/dL Low 1.9-2.7 [facility] Comment on above: Performed By: #### L [id number] ####[facility] ([facility])[address] [place] [address] MRSA/MSSA DNA NASALon 2024 MRSA DNA Positive Abnormal Negative [facility] Comment on above: Order Comment: Testi ng methodology is an automated qualitative in vitro diagnostic test for the directdetection and differentiation of Staphylococcus aureus (SA) DNA and methicillin-resistant Staphylococcus aureus (MRSA) DNA from nasal swabs in patients at risk for nasal colonization. The test utilizes real-time polymerase chain reaction (PCR) for the amplification of MRSA/SA DNA and fluorogenic target-specific hybridization probes for the detection of the amplified DNA. A negative result does not preclude nasal colonization. Performed By: #### L [id number] ####[facility] ([facility])[address] [place] [address] MSSA DNA Negative Normal Negative [facility] Comment on above: Order Comment: Testi ng methodology is an automated qualitative in vitro diagnostic test for the directdetection and differentiation of Staphylococcus aureus (SA) DNA and methicillin-resistant Staphylococcus aureus (MRSA) DNA from nasal swabs in patients at risk for nasal colonization. The test utilizes real-time polymerase chain reaction (PCR) for the amplification of MRSA/SA DNA and fluorogenic target-specific hybridization probes for the detection of the amplified DNA. A negative result does not preclude nasal colonization. Performed By: #### L [id number] ####[facility] ([facility])[address] [place] [address] OPNOTEon 11-26-2024 OPNOTE Normal [facility] PHOSPHORUSon 11-26-2024 Magnesium [Mass/Vol] 4.4 mg/dL Normal 2.5-5.0 [facility] Comment on above: Performed By: #### L [id number] ####[facility] ([facility])[address] [place] [address] Magnesium [Mass/Vol] 4.1 mg/dL Normal 2.5-5.0 [facility] Comment on above: Performed By: #### L [id number] ####[facility] (BEAKER)[address] [place] [address] Magnesium [Mass/Vol] 3.7 mg/dL Normal 2.5-5.0 [facility] Comment on above: Performed By: #### L [id number] ####[facility] (BEAKER)[address] [place] [address] POCT ACTIVATED CLOTTING TIME UNSOLICITED RESULTSon 11-26-2024 POC ACTIVATED CLOTTING TIME 113 sec Normal 82-152 [facility] Comment on above: Performed By: #### L [id number] ####[facility] (BEAKER)[address] [place] [address] POC ACTIVATED CLOTTING TIME 0 sec Low 82-152 [facility] Comment on above: Performed By: #### L [id number] ####[facility] (BEAKER)[address] [place] [address] POC ACTIVATED CLOTTING TIME 602 sec High 82-152 [facility] Comment on above: Performed By: #### L [id number] ####[facility] (BEAKER)[address] [place] [address] POC ACTIVATED CLOTTING TIME 489 sec High 82-152 [facility] Comment on above: Performed By: #### L [id number] ####[facility] (BEAKER)[address] [place] [address] POC ACTIVATED CLOTTING TIME 532 sec High 82-152 [facility] Comment on above: Performed By: #### L [id number] ####[facility] (BEAKER)[address] [place] [address] POC ACTIVATED CLOTTING TIME 596 sec High 82-152 [facility] Comment on above: Performed By: #### L [id number] ####[facility] (BEAKER)[address] [place] [address] POC ACTIVATED CLOTTING TIME 926 sec High 82-152 [facility] Comment on above: Performed By: #### L [id number] ####[facility] (BEAKER)[address] [place] [address] POC ACTIVATED CLOTTING TIME 119 sec Normal 82-152 [facility] Comment on above: Performed By: #### L [id number] ####[facility] ([facility])[address] [place] [address] POCT GLUCOSE METER UNSOLICIT ED RESULTSon 11-26-2024 Glucose [Mass/Vol] 147 mg/dL High 70-105 [facility] Comment on above: Order Comment: Waive d Testing in the ED is performed under the ED CLIA certificate #[id number]. Result Comment: agil len2 Performed By: #### L [id number] ####[facility] ([facility])[address] [place] [address] Glucose [Mass/Vol] 175 mg/dL High 70-105 [facility] Comment on above: Order Comment: Waive d Testing in the ED is performed under the ED CLIA certificate #[id number]. Result Comment: agil len2 Performed By: #### L [id number] ####[facility] ([facility])[address] [place] [address] Glucose [Mass/Vol] 176 mg/dL High 70-105 [facility] Comment on above: Order Comment: Waive d Testing in the ED is performed under the ED CLIA certificate #[id number]. Result Comment: agil len2 Performed By: #### L [id number] ####[facility] ([facility])[address] [place] [address] Glucose [Mass/Vol] 208 mg/dL High 70-105 [facility] Comment on above: Order Comment: Waive d Testing in the ED is performed under the ED CLIA certificate #[id number]. Result Comment: agil len2 Performed By: #### L [id number] ####[facility] ([facility] [place] [address] Glucose [Mass/Vol] 114 mg/dL High 70-105 [facility] Comment on above: Order Comment: Waive d Testing in the ED is performed under the ED CLIA certificate #[id number]. Result Comment: nhay man Performed By: #### L [id number] ####[facility] (BEAKER)[address] [place] [address] POCT PERFUSION PANEL UNSOLIC ITED RESULTSon 11-26-2024 CO2 [Moles/Vol] 27.0 mmol/L Normal 21.0-29.0 [facility] Comment on above: Performed By: #### L [id number] ####[facility] (BEAKER)[address] [place] [address] Glucose [Mass/Vol] 108 mg/dL High 70-105 [facility] Comment on above: Performed By: #### L [id number] ####[facility] (BEAKER)[address], [place] [address] HCO3 (Bld) [Moles/Vol] 25.5 mmol/L Normal 23.0-28.0 [facility] Comment on above: Performed By: #### L [id number] ####[facility] (BEAKER)[address] [place] [address] Hematocrit (Bld) [Volume fraction] 25 % Low 38-51 [facility] Comment on above: Performed By: #### L [id number] ####[facility] (BEAKER)[address] [place] [address] Hemoglobin (Bld) [Mass/Vol] 8.5 g/dL Low 12.0-17.0 [facility] Comment on above: Performed By: #### L [id number] ####[facility] (BEAKER)[address] [place] [address] POCT BASE EXCESS 0.0 mmol/L Normal -2.0-3.0 [facility] Comment on above: Performed By: #### L [id number] ####[facility] (BEAKER)[address] [place] [address] POCT IONIZED CALCIUM 1.18 mmol/L Normal 1.12-1.32 [facility] Comment on above: Performed By: #### L [id number] ####[facility] (BEAKER)[address] [place] [address] POCT PCO2 44.4 mmHg Normal 41.0-51.0 [facility] Comment on above: Performed By: #### L [id number] ####[facility] ([facility] [place] [address] POCT PH 7.37 Normal 7.31-7.41 [facility] Comment on above: Performed By: #### L [id number] ####[facility] [place] [address] POCT PO2 115 mmHg High 80-105 [facility] Comment on above: Performed By: #### L [id number] ####[facility] ([facility])[address] [address] POCT SO2 98 % Normal 95-98 [facility] Comment on above: Performed By: #### L [id number] ####[facility] ([facility])[address] [place] [address] Potassium [Moles/Vol] 4.8 mmol/L Normal 3.5-4.9 [facility] Comment on above: Performed By: #### L [id number] ####[facility] ([facility] [place] [address] Sodium [Moles/Vol] 142 mmol/L Normal 138.0-146.0 [facility] Comment on above: Performed By: #### L [id number] ####[facility] (BEAKER)[address] [place] [address] CO2 [Moles/Vol] 22.0 mmol/L Normal 21.0-29.0 [facility] Comment on above: Performed By: #### L [id number] ####[facility] (BEAKER)[address], [place] [address] Glucose [Mass/Vol] 129 mg/dL High 70-105 [facility] Comment on above: Performed By: #### L [id number] ####[facility] (BEAKER)[address] [place] [address] HCO3 (Bld) [Moles/Vol] 21.2 mmol/L Low 23.0-28.0 [facility] Comment on above: Performed By: #### L [id number] ####[facility] [place] [address] Hematocrit (Bld) [Volume fraction] 26 % Low 38-51 [facility] Comment on above: Performed By: #### L [id number] ####[facility] [address] Hemoglobin (Bld) [Mass/Vol] 8.8 g/dL Low 12.0-17.0 [facility] Comment on above: Performed By: #### L [id number] ####[facility] ([facility])[address] [place] [address] POCT BASE EXCESS -3.0 mmol/L Low -2.0-3.0 [facility] Comment on above: Performed By: #### L [id number] ####[facility] ([facility])[address], [place] [address] POCT IONIZED CALCIUM 1.23 mmol/L Normal 1.12-1.32 [facility] Comment on above: Performed By: #### L [id number] ####[facility] [place] [address] POCT PCO2 35.4 mmHg Low 41.0-51.0 [facility] Comment on above: Performed By: #### L [id number] ####[facility] (BEAKER)[address], [place] [address] POCT PH 7.39 Normal 7.31-7.41 [facility] Comment on above: Performed By: #### L [id number] ####[facility] (BEAKER)[address] [place] [address] POCT PO2 130 mmHg High 80-105 [facility] Comment on above: Performed By: #### L [id number] ####[facility] (BEAKER)[address] [place] [address] POCT SO2 99 % High 95-98 [facility] Comment on above: Performed By: #### L [id number] ####[facility] (BEAKER)[address] [place] [address] Potassium [Moles/Vol] 3.2 mmol/L Low 3.5-4.9 [facility] Comment on above: Performed By: #### L [id number] ####[facility] [place] [address] Sodium [Moles/Vol] 143 mmol/L Normal 138.0-146.0 [facility] Comment on above: Performed By: #### L [id number] ####[facility] (BEAKER)[address] [place] [address] CO2 [Moles/Vol] 22.0 mmol/L Normal 21.0-29.0 [facility] Comment on above: Performed By: #### L [id number] ####[facility] (BEAKER)[address] [place] [address] Glucose [Mass/Vol] 156 mg/dL High 70-105 [facility] Comment on above: Performed By: #### L [id number] ####[facility] (BEAKER)[address] [place] [address] HCO3 (Bld) [Moles/Vol] 20.8 mmol/L Low 23.0-28.0 [facility] Comment on above: Performed By: #### L [id number] ####[facility] (BEAKER)[address] [place] [address] Hematocrit (Bld) [Volume fraction] 21 % Low 38-51 [facility] Comment on above: Performed By: #### L [id number] ####[facility] (BEAKER)[address] [place] [address] Hemoglobin (Bld) [Mass/Vol] 7.1 g/dL Low 12.0-17.0 [facility] Comment on above: Performed By: #### L [id number] ####[facility] (BEAKER)[address] [place] [address] POCT BASE EXCESS -3.0 mmol/L Low -2.0-3.0 [facility] Comment on above: Performed By: #### L [id number] ####[facility] (BEAKER)[address] [place] [address] POCT IONIZED CALCIUM 1.23 mmol/L Normal 1.12-1.32 [facility] Comment on above: Performed By: #### L [id number] ####[facility] (BEAKER)[address] [place] [address] POCT PCO2 31.6 mmHg Low 41.0-51.0 [facility] Comment on above: Performed By: #### L [id number] ####[facility] (BEAKER)[address] [place] [address] POCT PH 7.43 High 7.31-7.41 [facility] Comment on above: Performed By: #### L [id number] ####[facility] (BEAKER)[address] [place] [address] POCT PO2 128 mmHg High 80-105 [facility] Comment on above: Performed By: #### L [id number] ####[facility] (BEAKER)[address] [place] [address] POCT SO2 99 % High 95-98 [facility] Comment on above: Performed By: #### L [id number] ####[facility] (BEAKER)[address] [place] [address] Potassium [Moles/Vol] 3.4 mmol/L Low 3.5-4.9 [facility] Comment on above: Performed By: #### L [id number] ####[facility] (BEAKER)[address] [place] [address] Sodium [Moles/Vol] 140 mmol/L Normal 138.0-146.0 [facility] Comment on above: Performed By: #### L [id number] ####[facility] (BEAKER)[address] [place] [address] CO2 [Moles/Vol] 23.0 mmol/L Normal 21.0-29.0 [facility] Comment on above: Performed By: #### L [id number] ####[facility] (BEAKER)[address] [place] [address] Glucose [Mass/Vol] 203 mg/dL High 70-105 [facility] Comment on above: Performed By: #### L [id number] ####[facility] ([facility]AKER)[address] [place] [address] HCO3 (Bld) [Moles/Vol] 21.9 mmol/L Low 23.0-28.0 [facility] Comment on above: Performed By: #### L [id number] ####[facility] (BEAKER)[address] [place] [address] Hematocrit (Bld) [Volume fraction] 26 % Low 38-51 [facility] Comment on above: Performed By: #### L [id number] ####[facility] (BEAKER)[address] [place] [address] Hemoglobin (Bld) [Mass/Vol] 8.8 g/dL Low 12.0-17.0 [facility] Comment on above: Performed By: #### L [id number] ####[facility] (BEAKER)[address] [place] [address] POCT BASE EXCESS 0.0 mmol/L Normal -2.0-3.0 [facility] Comment on above: Performed By: #### L [id number] ####[facility] (BEAKER)[address] [place] [address] POCT IONIZED CALCIUM 1.01 mmol/L Low 1.12-1.32 [facility] Comment on above: Performed By: #### L [id number] ####[facility] ([facility]ER)[address] [place] [address] POCT PCO2 25.3 mmHg Low 41.0-51.0 [facility] Comment on above: Performed By: #### L [id number] ####[facility] ([facility]ER)[address] [place] [address] POCT PH 7.55 High 7.31-7.41 [facility] Comment on above: Performed By: #### L [id number] ####[facility] ([facility]ER)[address] [place] [address] POCT PO2 555 mmHg High 80-105 [facility] Comment on above: Performed By: #### L [id number] ####[facility] ([facility]ER)[address] [place] [address] POCT SO2 100 % High 95-98 [facility] Comment on above: Performed By: #### L [id number] ####[facility] ([facility]ER)[address] [place] [address] Potassium [Moles/Vol] 4.3 mmol/L Normal 3.5-4.9 [facility] Comment on above: Performed By: #### L [id number] ####[facility] ([facility]AKER)[address] [place] [address] Sodium [Moles/Vol] 136 mmol/L Low 138.0-146.0 [facility] Comment on above: Performed By: #### L [id number] ####[facility] ([facility]AKER)[address] [place] [address] CO2 [Moles/Vol] 24.0 mmol/L Normal 21.0-29.0 [facility] Comment on above: Performed By: #### L [id number] ####[facility] ([facility]ER)[address] [place] [address] Glucose [Mass/Vol] 199 mg/dL High 70-105 [facility] Comment on above: Performed By: #### L [id number] ####[facility] ([facility]ER)[address] [place] [address] HCO3 (Bld) [Moles/Vol] 23.1 mmol/L Normal 23.0-28.0 [facility] Comment on above: Performed By: #### L [id number] ####[facility] (BEAKER)[address] [place] [address] Hematocrit (Bld) [Volume fraction] 24 % Low 38-51 [facility] Comment on above: Performed By: #### L [id number] ####[facility] [place] [address] Hemoglobin (Bld) [Mass/Vol] 8.2 g/dL Low 12.0-17.0 [facility] Comment on above: Performed By: #### L [id number] ####[facility] ([facility])[address] [place] [address] POCT BASE EXCESS 1.0 mmol/L Normal -2.0-3.0 [facility] Comment on above: Performed By: #### L [id number] ####[facility] ([facility])[address] [place] [address] POCT IONIZED CALCIUM 1.03 mmol/L Low 1.12-1.32 [facility] Comment on above: Performed By: #### L [id number] ####[facility] [place] [address] POCT PCO2 26.1 mmHg Low 41.0-51.0 [facility] Comment on above: Performed By: #### L [id number] ####[facility] ([facility]ER)[address] [address] POCT PH 7.56 High 7.31-7.41 [facility] Comment on above: Performed By: #### L [id number] ####[facility] ([facility]ER)[address] [address] POCT PO2 407 mmHg High 80-105 [facility] Comment on above: Performed By: #### L [id number] ####[facility] ([facility]ER)[address] [address] POCT SO2 100 % High 95-98 [facility] Comment on above: Performed By: #### L [id number] ####[facility] ([facility]ER)[address] [place] [address] Potassium [Moles/Vol] 4.4 mmol/L Normal 3.5-4.9 [facility] Comment on above: Performed By: #### L [id number] ####[facility] ([facility]ER)[address] [place] [address] Sodium [Moles/Vol] 135 mmol/L Low 138.0-146.0 [facility] Comment on above: Performed By: #### L [id number] ####[facility] ([facility]ER)[address] [place] [address] CO2 [Moles/Vol] 22.0 mmol/L Normal 21.0-29.0 [facility] Comment on above: Performed By: #### L [id number] ####[facility] ([facility]ER)[address] [place] [address] Glucose [Mass/Vol] 168 mg/dL High 70-105 [facility] Comment on above: Performed By: #### L [id number] ####[facility] ([facility]ER)[address] [place] [address] HCO3 (Bld) [Moles/Vol] 20.4 mmol/L Low 23.0-28.0 [facility] Comment on above: Performed By: #### L [id number] ####[facility] ([facility]ER)[address] [place] [address] Hematocrit (Bld) [Volume fraction] 21 % Low 38-51 [facility] Comment on above: Performed By: #### L [id number] ####[facility] ([facility]ER)[address] [place] [address] Hemoglobin (Bld) [Mass/Vol] 7.1 g/dL Low 12.0-17.0 [facility] Comment on above: Performed By: #### L [id number] ####[facility] ([facility]ER)[address] [place] [address] POCT BASE EXCESS -5.0 mmol/L Low -2.0-3.0 [facility] Comment on above: Performed By: #### L [id number] ####[facility] ([facility]ER)[address] [place] [address] POCT IONIZED CALCIUM 0.84 mmol/L Low 1.12-1.32 [facility] Comment on above: Performed By: #### L [id number] ####[facility] [place] [address] POCT PCO2 40.3 mmHg Low 41.0-51.0 [facility] Comment on above: Performed By: #### L [id number] ####[facility] ([facility])[address] [place] [address] POCT PH 7.31 Normal 7.31-7.41 [facility] Comment on above: Performed By: #### L [id number] ####[facility] [place] [address] POCT PO2 56 mmHg Low 80-105 [facility] Comment on above: Performed By: #### L [id number] ####[facility] ([facility])[address] [place] [address] POCT SO2 86 % Low 95-98 [facility] Comment on above: Performed By: #### L [id number] ####[facility] [place] [address] Potassium [Moles/Vol] 4.7 mmol/L Normal 3.5-4.9 [facility] Comment on above: Performed By: #### L [id number] ####[facility] ([facility]ER)[address] [place] [address] Sodium [Moles/Vol] 135 mmol/L Low 138.0-146.0 [facility] Comment on above: Performed By: #### L [id number] ####[facility] ([facility]ER)[address] [place] [address] CO2 [Moles/Vol] 25.0 mmol/L Normal 21.0-29.0 [facility] Comment on above: Performed By: #### L [id number] ####[facility] (BE[facility]ER)[address] [place] [address] Glucose [Mass/Vol] 160 mg/dL High 70-105 [facility] Comment on above: Performed By: #### L [id number] ####[facility] [place] [address] HCO3 (Bld) [Moles/Vol] 24.4 mmol/L Normal 23.0-28.0 [facility] Comment on above: Performed By: #### L [id number] ####[facility] [place] [address] Hematocrit (Bld) [Volume fraction] 29 % Low 38-51 [facility] Comment on above: Performed By: #### L [id number] ####[facility] (BEAKER)[address] [place] [address] Hemoglobin (Bld) [Mass/Vol] 9.9 g/dL Low 12.0-17.0 [facility] Comment on above: Performed By: #### L [id number] ####[facility] (BEAKER)[address] [place] [address] POCT BASE EXCESS 0.0 mmol/L Normal -2.0-3.0 [facility] Comment on above: Performed By: #### L [id number] ####[facility] (BEAKER)[address] [place] [address] POCT IONIZED CALCIUM 1.11 mmol/L Low 1.12-1.32 [facility] Comment on above: Performed By: #### L [id number] ####[facility] (BEAKER)[address] [place] [address] POCT PCO2 37.9 mmHg Low 41.0-51.0 [facility] Comment on above: Performed By: #### L [id number] ####[facility] [place] [address] POCT PH 7.42 High 7.31-7.41 [facility] Comment on above: Performed By: #### L [id number] ####[facility] [place] [address] POCT PO2 82 mmHg Normal 80-105 [facility] Comment on above: Performed By: #### L [id number] ####[facility] ([facility])[address] [place] [address] POCT SO2 96 % Normal 95-98 [facility] Comment on above: Performed By: #### L [id number] ####[facility] ([facility])[address] [place] [address] Potassium [Moles/Vol] 4.2 mmol/L Normal 3.5-4.9 [facility] Comment on above: Performed By: #### L [id number] ####[facility] ([facility])[address] [place] [address] Sodium [Moles/Vol] 136 mmol/L Low 138.0-146.0 [facility] Comment on above: Performed By: #### L [id number] ####[facility] ([facility])[address] [place] [address] CO2 [Moles/Vol] 25.0 mmol/L Normal 21.0-29.0 [facility] Comment on above: Performed By: #### L [id number] ####[facility] ([facility])[address] [place] [address] Glucose [Mass/Vol] 113 mg/dL High 70-105 [facility] Comment on above: Performed By: #### L [id number] ####[facility] [place] [address] HCO3 (Bld) [Moles/Vol] 24.4 mmol/L Normal 23.0-28.0 [facility] Comment on above: Performed By: #### L [id number] ####[facility] (BE[facility]ER)[address] [place] [address] Hematocrit (Bld) [Volume fraction] 31 % Low 38-51 [facility] Comment on above: Performed By: #### L [id number] ####[facility] (BEAKER)[address] [place] [address] Hemoglobin (Bld) [Mass/Vol] 10.5 g/dL Low 12.0-17.0 [facility] Comment on above: Performed By: #### L [id number] ####[facility] ([facility]ER)[address] [place] [address] POCT BASE EXCESS 1.0 mmol/L Normal -2.0-3.0 [facility] Comment on above: Performed By: #### L [id number] ####[facility] (BEAKER)[address] [place] [address] POCT IONIZED CALCIUM 1.18 mmol/L Normal 1.12-1.32 [facility] Comment on above: Performed By: #### L [id number] ####[facility] ([facility]ER)[address] [place] [address] POCT PCO2 34.8 mmHg Low 41.0-51.0 [facility] Comment on above: Performed By: #### L [id number] ####[facility] ([facility]ER)[address] [place] [address] POCT PH 7.45 High 7.31-7.41 [facility] Comment on above: Performed By: #### L [id number] ####[facility] ([facility]ER)[address] [place] [address] POCT PO2 143 mmHg High 80-105 [facility] Comment on above: Performed By: #### L [id number] ####[facility] ([facility]ER)[address] [place] [address] POCT SO2 99 % High 95-98 [facility] Comment on above: Performed By: #### L [id number] ####[facility] (BEAKER)[address] [place] [address] Potassium [Moles/Vol] 3.6 mmol/L Normal 3.5-4.9 [facility] Comment on above: Performed By: #### L [id number] ####[facility] (BEAKER)[address] [place] [address] Sodium [Moles/Vol] 137 mmol/L Low 138.0-146.0 [facility] Comment on above: Performed By: #### L [id number] ####[facility] (BEAKER)[address] [place] [address] POTASSIUM, WHOLE BLOODon Potassium [Moles/Vol] 4.5 mmol/L Normal 3.5-5.1 [facility] Comment on above: Performed By: #### P OTASSIUM, WHOLE BLOOD ####[facility] [id number] [place] [address] [place] PROTIME-INRon 11-26-2024 INR IN PPP BY COAGULATION ASSAY 1.11 High 0.90-1.10 [facility] Comment on above: Result Comment: ACCC P RECOMMENDED INR FOR WARFARIN THERAPY CONDITION INRPROPHYLAXIS OF VENOUS THROMBOSIS 2-3(HIGH-RISK SURGERY)TREATMENT OF VENOUS THROMBOSIS 2-3TREATMENT OF PULMONARY EMBOLISM 2-3PREVENTION OF SYSTEMIC EMBOLISM: 2-3 ACUTE MYOCARDIAL INFARCTION TISSUE HEART VALVES VALVULAR HEART DISEASE ATRIAL FIBRILLATION RECURRENT SYSTEMIC EMBOLISMMECHANICAL HEART VALVE 2.5-3.5 FROM: ORAL ANTICOAGULANTS. MECHANISM OF ACTION, CLINICAL EFFECTIVENESS, AND OPTIMAL THERAPEUTIC RANGE. CHEST 1995;108:231S-246S. Performed By: #### L [id number] ####[facility] (BEAKER)[address] [place] [address] PROTHROMBIN TIME (PT) IN PPP BY COAGULATION ASSAY 14.3 Seconds Normal 12.3-14.8 [facility] Comment on above: Performed By: #### L [id number] ####[facility] (BEAKER)[address] [place] [address] INR IN PPP BY COAGULATION ASSAY 1.35 High 0.90-1.10 [facility] Comment on above: Result Comment: ACC P RECOMMENDED INR FOR WARFARIN THERAPY CONDITION INRPROPHYLAXIS OF VENOUS THROMBOSIS 2-3(HIGH-RISK SURGERY)TREATMENT OF VENOUS THROMBOSIS 2-3TREATMENT OF PULMONARY EMBOLISM 2-3PREVENTION OF SYSTEMIC EMBOLISM: 2-3 ACUTE MYOCARDIAL INFARCTION TISSUE HEART VALVES VALVULAR HEART DISEASE ATRIAL FIBRILLATION RECURRENT SYSTEMIC EMBOLISMMECHANICAL HEART VALVE 2.5-3.5 FROM: ORAL ANTICOAGULANTS. MECHANISM OF ACTION, CLINICAL EFFECTIVENESS, AND OPTIMAL THERAPEUTIC RANGE. CHEST 1995;108:231S-246S. Performed By: #### L [id number] ####[facility] (BEAKER)[address] [place] [address] PROTHROMBIN TIME (PT) IN PPP BY COAGULATION ASSAY 16.6 Seconds High 12.3-14.8 [facility] Comment on above: Performed By: #### L [id number] ####[facility] (BEAKER)[address] [place] [address] INR IN PPP BY COAGULATION ASSAY 1.04 Normal 0.90-1.10 [facility] Comment on above: Result Comment: ACCC P RECOMMENDED INR FOR WARFARIN THERAPY CONDITION INRPROPHYLAXIS OF VENOUS THROMBOSIS 2-3(HIGH-RISK SURGERY)TREATMENT OF VENOUS THROMBOSIS 2-3TREATMENT OF PULMONARY EMBOLISM 2-3PREVENTION OF SYSTEMIC EMBOLISM: 2-3 ACUTE MYOCARDIAL INFARCTION TISSUE HEART VALVES VALVULAR HEART DISEASE ATRIAL FIBRILLATION RECURRENT SYSTEMIC EMBOLISMMECHANICAL HEART VALVE 2.5-3.5 FROM: ORAL ANTICOAGULANTS. MECHANISM OF ACTION, CLINICAL EFFECTIVENESS, AND OPTIMAL THERAPEUTIC RANGE. CHEST 1995;108:231S-246S. Performed By: #### L [id number] ####[facility] (BEAKER)[address] [place] [address] PROTHROMBIN TIME (PT) IN PPP BY COAGULATION ASSAY 13.6 Seconds Normal 12.3-14.8 [facility] Comment on above: Performed By: #### L [id number] ####[facility] (BEAKER)[address] [place] [address] SODIUM, WHOLE BLOODon 2024 SODIUM, WHOLE BLOOD 138 Normal 136-145 [facility] Comment on above: Performed By: #### S ODIUM, WHOLE BLOOD ####[facility] [id number] [place] [address] [place] ANTI-XA (HEPARIN LEVEL)on HEPARIN UNFRACTIONATED (U/ML) IN PPP BY CHROMOGENIC METHOD 0.40 IU/mL Normal 0.3-0.7 [facility] Comment on above: Result Comment: Shakila roxaban and Apixaban will interfere with the anti Xa assay used to monitor UFH and LMWH. Performed By: #### L [id number] ####[facility] (BEAKER)[address] [place] [address] HEPARIN UNFRACTIONATED (U/ML) IN PPP BY CHROMOGENIC METHOD >1.00 Critically high 0.3-0.7 [facility] Comment on above: Result Comment: Ceres roxaban and Apixaban will interfere with the anti Xa assay used to monitor UFH and LMWH. Performed By: #### L [id number] ####[facility] [place] [address] HEPARIN UNFRACTIONATED (U/ML) IN PPP BY CHROMOGENIC METHOD 0.90 IU/mL Critically high 0.3-0.7 [facility] Comment on above: Order Comment: Check anti-Xa level every 6 hours while on heparin infusion, or per protocol. Result Comment: Shakila roxaban and Apixaban will interfere with the anti Xa assay used to monitor UFH and LMWH. Performed By: #### L [id number] ####[facility] ([facility])[address] [place] [address] APOLIPOPROTEIN B-100on 11-25 Magnesium [Mass/Vol] 139 mg/dL High 60-117 [facility] Comment on above: Result Comment: REFE RENCE INTERVAL: Apolipoprotein BA desirable fasting serum Apo B concentration for the preventionof atherosclerotic cardiovascular disease in adults is less than90 mg/dL. A fasting serum Apo B concentration of 130 mg/dL orgreater corresponds to a LDL cholesterol concentration greaterthan 160 mg/dL and constitutes a risk enhancing factor foratherosclerotic cardiovascular disease in adults.Performed By: [facility] [id number] [place], [place] [address]Nrvmtcosyt Director: Guille Franklin MD, PhDCLIA Number: [id number] Performed By: #### L [id number] ####[facility] ([facility])[address] [place] [address] BASIC METABOLIC PANELon - Anion gap [Moles/Vol] 8 mmol/L Normal 7-20 [facility] Comment on above: Performed By: #### L [id number] ####[facility] ([facility])[address] [place] [address] Calcium [Mass/Vol] 8.6 mg/dL Normal 8.6-10.3 [facility] Comment on above: Performed By: #### L [id number] ####[facility] ([facility])[address] [place] [address] Chloride [Moles/Vol] 106 mmol/L Normal 98-107 [facility] Comment on above: Performed By: #### L [id number] ####[facility] ([facility])[address] [place] [address] CO2 [Moles/Vol] 31 mmol/L Normal 21-31 [facility] Comment on above: Performed By: #### L [id number] ####[facility] ([facility])[address] [place] [address] Creatinine [Mass/Vol] 0.85 mg/dL Normal 0.60-1.20 [facility] Comment on above: Performed By: #### L [id number] ####[facility] ([facility])[address] [place] [address] GLOMERULAR FILTRATION RATE ML/MIN/1.73 SQ M.PREDICTED 73.7 mL/min/1.73m*2 Normal >60.0 [facility] Comment on above: Result Comment: The [facility]???s estimated glomerular filtration rate (eGFR) will no longer include consideration of race in its calculation. The National Kid[employer] Foundation???s eGFR Task Force developed new recommendations for [...] disproportionately affect any one group of individuals. Performed By: #### L [id number] ####[facility] [place] [address] Glucose [Mass/Vol] 88 mg/dL Normal 70-100 [facility] Comment on above: Performed By: #### L [id number] ####[facility] [place] [address] Potassium [Moles/Vol] 3.9 mmol/L Normal 3.5-5.1 [facility] Comment on above: Performed By: #### L [id number] ####[facility] [address] Sodium [Moles/Vol] 141 mmol/L Normal 136-145 [facility] Comment on above: Performed By: #### L [id number] ####[facility] [place] [address] Urea nitrogen [Mass/Vol] 11 mg/dL Normal 7-25 [facility] Comment on above: Performed By: #### L [id number] ####[facility] ([facility])[address] [place] [address] UREA NITROGEN/CREATINI NE (MASS RATIO) IN SER/PLAS 12.9 Normal [facility] Comment on above: Performed By: #### L [id number] ####[facility] ([facility])[address] [place] [address] CBCon 11-25-2024 Erythrocyte distribution width (RBC) [Ratio] 12.8 % Normal 11.5-15.0 [facility] Comment on above: Performed By: #### L [id number] ####[facility] ([facility])[address] [place] [address] ERYTHROCYTE MEAN CORPUSCULAR HEMOGLOBIN CONCENTRATION (G/DL) BY AUTOMATED 31.6 g/dL Low 32.0-35.0 [facility] Comment on above: Performed By: #### L [id number] ####[facility] [place] [address] Hematocrit (Bld) [Volume fraction] 34.2 % Low 36.0-45.0 [facility] Comment on above: Performed By: #### L [id number] ####[facility] (BEAKER)[address] [place] [address] Hemoglobin (Bld) [Mass/Vol] 10.8 g/dL Low 12.0-15.0 [facility] Comment on above: Performed By: #### L [id number] ####[facility] ([facility])[address] [place] [address] MCH (RBC) [Entitic mass] 27.9 pg Normal 27.0-33.0 [facility] Comment on above: Performed By: #### L [id number] ####[facility] ([facility])[address] [place] [address] MCV (RBC) [Entitic vol] 88.4 fL Normal 82.0-98.0 [facility] Comment on above: Performed By: #### L [id number] ####[facility] ([facility])[address] [place] [address] PLATELETS (10*3/UL) IN BLOOD AUTOMATED COUNT 325 10*3/uL Normal 150-400 [facility] Comment on above: Performed By: #### L [id number] ####[facility] ([facility])[address] [place] [id number] RBC (Bld) [#/Vol] 3.87 10*6/uL Normal 3.80-5.00 [facility] Comment on above: Performed By: #### L [id number] ####[facility] ([facility])[address] [place] [id number] WBC (Bld) [#/Vol] 6.21 10*3/uL Normal 4.00-10.60 [facility] Comment on above: Performed By: #### L [id number] ####[facility] ([facility])[address] [place] [id number] CONSULTon 11-25-2024 CONSULT Normal [facility] CONSULT Normal [facility] CONSULT Normal [facility] HIGH SENSITIVITY TROPONIN Io n 11-25-2024 HS TROPONIN I (NG/L) 9 ng/L Normal <15 [facility] Comment on above: Performed By: #### L [id number] ####[facility] ([facility])[address] [place] [address] HS TROPONIN I (NG/L) 22 ng/L High <15 [facility] Comment on above: Performed By: #### L [id number] ####[facility] ([facility])[address] [place] [address] HPon 11-25-2024 HP Normal [facility] HP Normal [facility] LIPOPROTEIN A (LPA)on 2024 Magnesium [Mass/Vol] 10 mg/dL Normal <=29 [facility] Comment on above: Result Comment: Perf ormed By: Health [id number] [place], [place] [id number] Director: Guille Franklin MD, PhDCLIA Number: [id number] Performed By: #### L [id number] ####[facility] ([facility])[address] [place] [address] MAGNESIUMon 11-25-2024 Magnesium [Mass/Vol] 2.0 mg/dL Normal 1.9-2.7 [facility] Comment on above: Performed By: #### L [id number] ####[facility] ([facility])[address] [place] [address] PHOSPHORUSon 11-25-2024 Magnesium [Mass/Vol] 4.2 mg/dL Normal 2.5-5.0 [facility] Comment on above: Performed By: #### L [id number] ####[facility] ([facility])[address] [place] [address] TYPE AND SCREENon 11-25-2024 AB SCREEN Negative Normal [facility] Comment on above: Performed By: #### L [id number] ####[facility], ABO group Nom (Bld) O Normal [facility] Comment on above: Performed By: #### L [id number] ####[facility], RH TYPE IN BLOOD Negative Normal [facility] Comment on above: Performed By: #### L [id number] ####[facility], URINALYSISon 11-25-2024 BILIRUBIN, TOTAL PRESENCE IN URINE Negative Normal Negative [facility] Comment on above: Order Comment: Micro scopics not performed on urines with negative chemical reactions unless requested on original order. Performed By: #### L [id number] ####[facility] ([facility])[address] [place] [address] Clarity (U) Clear Normal Clear [facility] Comment on above: Order Comment: Micro scopics not performed on urines with negative chemical reactions unless requested on original order. Performed By: #### L [id number] ####[facility] ([facility])[address] [place] [address] Color (U) Light-Yellow Normal Colorless, Yellow, Light-Yellow [facility] Comment on above: Order Comment: Micro scopics not performed on urines with negative chemical reactions unless requested on original order. Performed By: #### L [id number] ####[facility] ([facility])[address] [facility] [place] [address] GLUCOSE (MG/DL) IN URINE Normal Normal Normal [facility] Comment on above: Order Comment: Micro scopics not performed on urines with negative chemical reactions unless requested on original order. Performed By: #### L [id number] ####[facility] ([facility])[address] [place] [address] HEMOGLOBIN PRESENCE IN URINE Negative Normal Negative [facility] Comment on above: Order Comment: Micro scopics not performed on urines with negative chemical reactions unless requested on original order. Performed By: #### L [id number] ####[facility] ([facility])[address] [facility] [place] [address] Ketones Ql (U) 20 mg/dL Abnormal Negative [facility] Comment on above: Order Comment: Micro scopics not performed on urines with negative chemical reactions unless requested on original order. Performed By: #### L [id number] ####[facility] ([facility])[address] [place] [address] LEUKOCYTE ESTERASE PRESENCE IN URINE BY TEST STRIP Negative Normal Negative [facility] Comment on above: Order Comment: Micro scopics not performed on urines with negative chemical reactions unless requested on original order. Performed By: #### L [id number] ####[facility] [place] [address] NITRITE PRESENCE IN URINE Negative Normal Negative [facility] Comment on above: Order Comment: Micro scopics not performed on urines with negative chemical reactions unless requested on original order. Performed By: #### L [id number] ####[facility] [place] [address] pH (U) 7.0 [pH] Normal 5.0-8.0 [facility] Comment on above: Order Comment: Micro scopics not performed on urines with negative chemical reactions unless requested on original order. Performed By: #### L [id number] ####[facility] ([facility])[address] [place] [address] Protein (U) [Mass/Vol] Negative Normal Negative [facility] Comment on above: Order Comment: Micro scopics not performed on urines with negative chemical reactions unless requested on original order. Performed By: #### L [id number] ####[facility] ([facility])[address] [place] [address] Specific gravity (U) [Rel density] >1.050 High 1.010-1.030 [facility] Comment on above: Order Comment: Micro scopics not performed on urines with negative chemical reactions unless requested on original order. Performed By: #### L [id number] ####[facility] ([facility])[address] [place] [address] UROBILINOGEN (MG/DL) IN URINE Normal Normal Normal [facility] Comment on above: Order Comment: Micro scopics not performed on urines with negative chemical reactions unless requested on original order. Performed By: #### L [id number] ####[facility] ([facility])[address] [place] [address] 30on 11-24-2024 30 Normal [facility] APTTon 11-24-2024 ACTIVATED PARTIAL THROMBOPLASTIN TIME IN PPP BY COAGULATION ASSAY 34.5 Seconds Normal 25.0-35.0 [facility] Comment on above: Order Comment: Basel ine aPTT before initiating heparin infusion. Result Comment: Clin ical significance of the APTT is questionable in the presence of heparin. Performed By: #### L [id number] ####[facility] ([facility])[address] [place] [address] B-TYPE NATRIURETIC PEPTIDEon 11-24-2024 Natriuretic peptide B (Bld) [Mass/Vol] 69 pg/mL Normal 0-100 [facility] Comment on above: Performed By: #### L [id number] ####[facility] ([facility])[address] [place] [address] CBCon 11-24-2024 Erythrocyte distribution width (RBC) [Ratio] 12.9 % Normal 11.5-15.0 [facility] Comment on above: Performed By: #### L [id number] ####[facility] ([facility])[address] [place] [address] ERYTHROCYTE MEAN CORPUSCULAR HEMOGLOBIN CONCENTRATION (G/DL) BY AUTOMATED 31.8 g/dL Low 32.0-35.0 [facility] Comment on above: Performed By: #### L [id number] ####[facility] ([facility])[address] [place] [address] Hematocrit (Bld) [Volume fraction] 36.8 % Normal 36.0-45.0 [facility] Comment on above: Performed By: #### L [id number] ####[facility] ([facility])[address] [place] [address] Hemoglobin (Bld) [Mass/Vol] 11.7 g/dL Low 12.0-15.0 [facility] Comment on above: Performed By: #### L [id number] ####[facility] ([facility])[address] [place] [address] MCH (RBC) [Entitic mass] 27.5 pg Normal 27.0-33.0 [facility] Comment on above: Performed By: #### L [id number] ####[facility] ([facility])[address] [place] [address] MCV (RBC) [Entitic vol] 86.6 fL Normal 82.0-98.0 [facility] Comment on above: Performed By: #### L [id number] ####[facility] [place] [address] PLATELETS (10*3/UL) IN BLOOD AUTOMATED COUNT 360 10*3/uL Normal 150-400 [facility] Comment on above: Performed By: #### L [id number] ####[facility] ([facility])[address] [place] [address] RBC (Bld) [#/Vol] 4.25 10*6/uL Normal 3.80-5.00 [facility] Comment on above: Performed By: #### L [id number] ####[facility] [place] [address] WBC (Bld) [#/Vol] 6.59 10*3/uL Normal 4.00-10.60 [facility] Comment on above: Performed By: #### L [id number] ####[facility] [place] [address] COMPREHENSIVE METABOLIC PANE Mohit 11-24-2024 Albumin [Mass/Vol] 4.3 g/dL Normal 3.5-5.7 [facility] Comment on above: Performed By: #### L [id number] ####[facility] ([facility])[address] [place] [address] ALP [Catalytic activity/Vol] 85 U/L Normal 34-104 [facility] Comment on above: Performed By: #### L [id number] ####[facility] ([facility])[address] [place] [address] ALT [Catalytic activity/Vol] 8 U/L Normal 7-52 [facility] Comment on above: Performed By: #### L [id number] ####[facility] ([facility])[address] [place] [address] Anion gap [Moles/Vol] 9 mmol/L Normal 7-20 [facility] Comment on above: Performed By: #### L [id number] ####[facility] ([facility])[address] [place] [address] AST [Catalytic activity/Vol] 15 U/L Normal 13-39 [facility] Comment on above: Performed By: #### L [id number] ####[facility] ([facility])[address] [place] [address] Bilirubin [Mass/Vol] 0.5 mg/dL Normal 0.3-1.0 [facility] Comment on above: Performed By: #### L [id number] ####[facility] ([facility])[address] [place] [address] Calcium [Mass/Vol] 9.6 mg/dL Normal 8.6-10.3 [facility] Comment on above: Performed By: #### L [id number] ####[facility] ([facility])[address] [place] [address] Chloride [Moles/Vol] 104 mmol/L Normal 98-107 [facility] Comment on above: Performed By: #### L [id number] ####[facility] ([facility])[address] [place] [address] CO2 [Moles/Vol] 30 mmol/L Normal 21-31 [facility] Comment on above: Performed By: #### L [id number] ####[facility] ([facility])[address] [place] [address] Creatinine [Mass/Vol] 0.85 mg/dL Normal 0.60-1.20 [facility] Comment on above: Performed By: #### L [id number] ####[facility] ([facility])[address] [place] [address] GLOMERULAR FILTRATION RATE ML/MIN/1.73 SQ M.PREDICTED 73.7 mL/min/1.73m*2 Normal >60.0 [facility] Comment on above: Result Comment: The [facility]???s estimated glomerular filtration rate (eGFR) will no longer include consideration of race in its calculation. The [employer] Foundation???s eGFR Task Force developed new recommendations for [...] disproportionately affect any one group of individuals. Performed By: #### L [id number] ####[facility] ([facility])[address] [place] [address] Glucose [Mass/Vol] 96 mg/dL Normal 70-100 [facility] Comment on above: Performed By: #### L [id number] ####[facility] ([facility])[address] [place] [address] Potassium [Moles/Vol] 4.1 mmol/L Normal 3.5-5.1 [facility] Comment on above: Performed By: #### L [id number] ####[facility] ([facility])[address] [place] [address] Protein [Mass/Vol] 6.5 g/dL Normal 6.0-8.3 [facility] Comment on above: Performed By: #### L [id number] ####[facility] ([facility])[address] [place] [address] Sodium [Moles/Vol] 139 mmol/L Normal 136-145 [facility] Comment on above: Performed By: #### L [id number] ####[facility] ([facility])[address] [place] [address] Urea nitrogen [Mass/Vol] 12 mg/dL Normal 7-25 [facility] Comment on above: Performed By: #### L [id number] ####[facility] ([facility])[address] [place] [address] UREA NITROGEN/CREATINI NE (MASS RATIO) IN SER/PLAS 14.1 Normal [facility] Comment on above: Performed By: #### L [id number] ####[facility] ([facility])[address] [place] [address] HEMOGLOBIN A1Con 11-24-2024 Glucose [Mass/Vol] 111 mg/dL Normal [facility] Comment on above: Performed By: #### L [id number] ####[facility] ([facility])[address] [place] [address] HbA1c (Bld) [Mass fraction] 5.5 % Normal 4.0-6.0 [facility] Comment on above: Performed By: #### L [id number] ####[facility] ([facility])[address] [place] [address] HIGH SENSITIVITY TROPONIN Io n 11-24-2024 HS TROPONIN I (NG/L) 41 ng/L High <15 [facility] Comment on above: Performed By: #### L [id number] ####[facility] ([facility])[address] [place] [address] HS TROPONIN I (NG/L) 18 ng/L High <15 [facility] Comment on above: Performed By: #### L [id number] ####[facility] ([facility])[address] [place] [address] HPon 11-24-2024 HP Normal [facility] LIPID PANELon 11-24-2024 CHOL/HDL 4.1 mg/dL Normal [facility] Comment on above: Performed By: #### L [id number] ####[facility] ([facility])[address] [place] [address] Cholesterol [Mass/Vol] 290 mg/dL High 120-200 [facility] Comment on above: Performed By: #### L [id number] ####[facility] [place] [address] Magnesium [Mass/Vol] 76 mg/dL Normal <150 [facility] Comment on above: Result Comment: TRIG LYCERIDE REFERENCE RANGE:20 YEARS AND OLDER CARDIOVASCULAR RISKLESS THAN 150 mg/dL LOW [id number] TO 199 mg/dL BORDERLINE [id number] mg/dL AND GREATER HIGH RISK Performed By: #### L [id number] ####[facility] [place] [address] Magnesium [Mass/Vol] 204 mg/dL High 0-160 [facility] Comment on above: Performed By: #### L [id number] ####[facility] ([facility])[address] [place] [address] Magnesium [Mass/Vol] 71 mg/dL Normal 23-92 [facility] Comment on above: Performed By: #### L [id number] ####[facility] ([facility])[address] [place] [address] NON HDL CHOL. (LDL+VLDL) 219 Normal [facility] Comment on above: Performed By: #### L [id number] ####[facility] ([facility])[address] [place] [address] TOTAL VLDL-C 15 mg/dL Normal 0-40 [facility] Comment on above: Performed By: #### L [id number] ####[facility] ([facility])[address] [place] [address] MAGNESIUMon 11-24-2024 Magnesium [Mass/Vol] 1.8 mg/dL Low 1.9-2.7 [facility] Comment on above: Performed By: #### L [id number] ####[facility] ([facility])[address] [place] [address] CBC AND AUTO DIFFon 03-16-20 24 ABSOLUTE BASOPHIL 0.0 X10E9/L Normal 0.0-0.2 [facility] Comment on above: Performed By: #### C BCA #### [facility] ([id number]) [address] [place] [address] ABSOLUTE NEUTROPHIL 3.6 X10E9/L Normal 1.5-6.6 [facility] Comment on above: Performed By: #### C BCA #### [facility] ([id number]) [address] [place] [address] Basophils/100 WBC (Bld) 0.6 % Normal [facility] Comment on above: Performed By: #### C BCA #### [facility] ([id number]) [address] [place] [address] Eosinophils (Bld) [#/Vol] 0.1 10*3/uL Normal 0.0-0.4 [facility] Comment on above: Performed By: #### C BCA #### [facility] ([id number]) [address] [place] [address] Eosinophils/100 WBC (Bld) 1.8 % Normal [facility] Comment on above: Performed By: #### C BCA #### [facility] ([id number]) [address] [place] [address] Erythrocyte distribution width (RBC) [Ratio] 13.2 % Normal 11.5-15.0 [facility] Comment on above: Performed By: #### C BCA #### [facility] ([id number]) [address] [place] [address] Hematocrit (Bld) [Volume fraction] 37.0 % Normal 35-47 [facility] Comment on above: Performed By: #### C BCA #### [facility] ([id number]) [address] [place] [address] Hemoglobin (Bld) [Mass/Vol] 12.2 g/dL Normal 11.7-15.5 [facility] Comment on above: Performed By: #### C BCA #### [facility] ([id number]) [address] [place] [address] Lymphocytes (Bld) [#/Vol] 2.7 10*3/uL Normal 1.0-3.5 [facility] Comment on above: Performed By: #### C BCA #### [facility] ([id number]) [address] [place] [address] Lymphocytes/100 WBC (Bld) 39.1 % Normal [facility] Comment on above: Performed By: #### C BCA #### [facility] ([id number]) [address] [place] [address] MCH (RBC) [Entitic mass] 27.8 pg Normal 27-34 [facility] Comment on above: Performed By: #### C BCA #### [facility] ([id number]) [address] [place] [address] MCHC (RBC) [Mass/Vol] 33.0 g/dL Normal 32-36 [facility] Comment on above: Performed By: #### C BCA #### [facility] ([id number]) [address] [place] [address] MCV (RBC) [Entitic vol] 84 fL Normal 80-100 [facility] Comment on above: Performed By: #### C BCA #### [facility] ([id number]) [address] [place] [address] Monocytes (Bld) [#/Vol] 0.5 10*3/uL Normal 0-0.9 [facility] Comment on above: Performed By: #### C BCA #### [facility] ([id number]) [address] [place] [address] Monocytes/100 WBC (Bld) 6.6 % Normal [facility] Comment on above: Performed By: #### C BCA #### [facility] ([id number]) [address] [place] [address] Neutrophils/100 WBC (Bld) 51.9 % Normal [facility] Comment on above: Performed By: #### C BCA #### [facility] ([id number]) [address] [place] [address] Platelet mean volume (Bld) [Entitic vol] 7.2 fL Normal 7-12 [facility] Comment on above: Performed By: #### C BCA #### [facility] ([id number]) [address] [place] [address] Platelets (Bld) [#/Vol] 350 10*3/uL Normal 150-450 [facility] Comment on above: Performed By: #### C BCA #### [facility] ([id number]) [address] [place] [address] RBC COUNT 4.39 X10E12/L Normal 3.80-5.20 [facility] Comment on above: Performed By: #### C BCA #### [facility] ([id number]) [address] [place] [address] WBC (Bld) [#/Vol] 6.9 10*3/uL Normal 4.0-11.0 [facility] Comment on above: Performed By: #### C BCA #### [facility] ([id number]) [address] [place] [address] XR FOOT AYUSH MIN 3 VIEWSon XR FOOT AYUSH MIN 3 VIEWS EXAMINATION: XR FOOT AYUSH MIN 3 VIEWS HISTORY: Pain in both feet COMPARISON: 03/07/2022 FINDINGS: RIGHT FINDINGS: BONES: No acute fracture or dislocation. Mild osteoporosis. Mild enthesopathic spurring of the calcaneus SOFT TISSUES: Negative. No visible soft tissue swelling. OTHER: Negative. LEFT FINDINGS: BONES: No acute fracture or dislocation. Moderate to severe osteoarthritis first metatarsal-phalangeal joint. Remote stable fracture lateral base of the first proximal phalanx. Enthesopathic spurring the calcaneus SOFT TISSUES: Negative. No visible soft tissue swelling. OTHER: Negative. IMPRESSION: RIGHT CONCLUSION: Mild osteoarthritis LEFT CONCLUSION: Moderate to severe first metatarsal-phalangeal joint osteoarthritis Electronically authenticated by: HAYDE DURAN Date: 2022-10-31 15:51 Normal [facility] LIPID PROFILEon 04-10-2022 CHOL-HDL RATIO NORM SEE BELOW Normal [facility] Comment on above: Result Comment: 3.3 - 4.4 LOW RISK 4.4 - 7.1 AVERAGE RISK 7.1 - 11.0 MODERATE RISK >11.0 HIGH RISK Performed By: #### L IPID, BMP #### [facility] [address] [address] [address] Shabbir Haji Cholesterol [Mass/Vol] 353 mg/dL Critically high <=200 [facility] Comment on above: Performed By: #### L IPID, BMP #### [facility] [address] [address] [address] Shabbir Haji Cholesterol in HDL [Mass/Vol] 71 mg/dL Critically high 40-60 [facility] Comment on above: Performed By: #### L IPID, BMP #### [facility] [address] [address] [address] Shabbir Haji Cholesterol in LDL [Mass/Vol] 253.8 mg/dL Normal [facility] Comment on above: Performed By: #### L IPID, BMP #### [facility] [address] [place] [address] Dr. Shabbir Haji Cholesterol.total /Cholesterol in HDL [Mass ratio] 5.0 {ratio} Normal [facility] Comment on above: Performed By: #### L IPID, BMP #### [facility] [address] [address] [address] Shabbir Haji HDL NORMAL > or = 60 mg/dl - LO W CARDIOVASCULAR RISK <40 mg/dl - HIGH CARDIOVASCULAR RISK Normal [facility] Comment on above: Performed By: #### L IPID, BMP #### [facility] [address] [address] [address] Shabbir Haji LDL CALC NORMAL SEE BELOW Normal [facility] Comment on above: Result Comment: <100 mg/dl OPTIMAL 100 - 129 mg/dl NEAR OR ABOVE OPTIMAL 130 - 159 mg/dl BORDERLINE HIGH 160 - 189 mg/dl HIGH >190 mg/dl VERY HIGH Performed By: #### L IPID, BMP #### [facility] [address] [address] [address] Shabbir Haji Triglyceride [Mass/Vol] 141 mg/dL Normal <=150 [facility] Comment on above: Performed By: #### L IPID, BMP #### [facility] [address] [address] [address] Shabbir Haji VLDL CALC 28.2 mg/dL Normal The [facility] Comment on above: Performed By: #### L IPID, BMP #### [facility] [address] [place] [address] Dr. Shabbir Haji PROF CHEM 8 (BAS METB)on Anion gap [Moles/Vol] 11.0 mmol/L Normal The [facility] Comment on above: Performed By: #### L IPID, BMP #### [facility] [address] [place] [address] Dr. Shabbir Haji Calcium [Mass/Vol] 9.4 mg/dL Normal 8.5-10.1 The [facility] Comment on above: Performed By: #### L IPID, BMP #### [facility] [address] [place] [address] Dr. Shabbir Haji Chloride [Moles/Vol] 101 mmol/L Normal 98-107 [facility] Comment on above: Performed By: #### L IPID, BMP #### [facility] [address] [place] [address] Dr. Shabbir Haji CO2 [Moles/Vol] 30.9 mmol/L Normal 21.0-32.0 [facility] Comment on above: Performed By: #### L IPID, BMP #### [facility] [address] [place] [address] Dr. Shabbir Haji Creatinine [Mass/Vol] 0.88 mg/dL Normal 0.55-1.02 The [facility] Comment on above: Performed By: #### L IPID, BMP #### [facility] [address] [place] [address] Dr. Shabbir Haji EGFR-AF CAMBODIAN >60 Normal >=60 [facility] Comment on above: Performed By: #### L IPID, BMP #### [facility] [address] [place] [address] Dr. Shabbir Haji EGFR-NON AF CAMBODIAN >60 Normal >=60 The [facility] Comment on above: Performed By: #### L IPID, BMP #### [facility] [address] [place], [place] [id number] Dr. Shabbir Haji Glucose [Mass/Vol] 75 mg/dL Normal 74-106 The [facility] Comment on above: Performed By: #### L IPID, BMP #### [facility] [address] [place] [address] Dr. Shabbir Haji Potassium [Moles/Vol] 4.9 mmol/L Normal 3.5-5.1 [facility] Comment on above: Performed By: #### L IPID, BMP #### [facility] [address] [place] [address] Dr. Shabbir Haji Sodium [Moles/Vol] 138 mmol/L Normal 136-145 [facility] Comment on above: Performed By: #### L IPID, BMP #### [facility] [address] [place] [address] Dr. Shabbir Haji Urea nitrogen [Mass/Vol] 13.0 mg/dL Normal 7.0-18.0 [facility] Comment on above: Performed By: #### L IPID, BMP #### [facility] [address] [place] [address] Dr. Shabbir Haji Urea nitrogen/Creatini ne [Mass ratio] 14.8 mg/mg Normal The [facility] Comment on above: Performed By: #### L IPID, BMP #### [facility] [address] [place] [address] Dr. Shabbir Haji XR CHEST 2 Von 01-14-2022 XR CHEST 2 V EXAM: XR CHEST 2 V HISTORY: Chronic cough EXAM: XR CHEST 2 V INDICATION: 66 years old Female Chronic cough COMPARISON: None. FINDINGS: The cardiac silhouette is normal. There is no pulmonary edema. The lungs are clear. There is no pneumonia. There is no pneumothorax. There is no abnormal foreign body. IMPRESSION: There is no acute abnormality. Electronically authenticated by: CHRIS CARROLL Date: 2022-01-14 20:09 Normal The [facility] COVID/FLU RT-PCRon 2 SARS-CoV-2 (COVID-19) RNA ANKITA+probe Ql (Unsp spec) Positive [employer] Other COVID/FLU RT-PCR Negative [employer] Other MM diagnostic mammo BI w/CAD on 06-13-2021 MM diagnostic mammo BI w/CAD [facility] [place] [address] [place], [place] [id number] Mammography Report Signed Patient: Shruthi Cristobal MR#: [id number] : 1955 Acct:[id number] Age/Sex: 65 / F ADM Date: 06/13/21 Loc: OR Room: Type: [facility] Attending Dr: Guille Alarcon MD Ordering Provider: Derick Alarcon MD Date of Service: 06/13/21 MM/MM diagnostic mammo BI w/CAD: N60.01 R92.8 Copies to: NON STAFF Derick Alarcon MD CLINICAL DATA: Follow-up lateral right breast asymmetry. BILATERAL DIAGNOSTIC MAMMOGRAMS - FULL FIELD DIGITAL WITH TOMOSYNTHESIS AND CAD Tomosynthesis craniocaudal and mediolateral oblique views of both breasts were obtained using low- dose digital technique. Comparison is made to the prior study from June 20, 2020. This examination was reviewed with the aid of CAD. There are scattered fibroglandular densities. Benign calcifications are present on the left. Vascular calcifications are seen on the right. The asymmetry at the lateral right breast on the comparison and is less evident today and is probably glandular tissue. There are no developing masses, typically malignant calcifications or architectural distortion. There has been no significant interval change. MM/MM diagnostic mammo BI w/CAD IMPRESSION: NO MAMMOGRAPHIC EVIDENCE OF MALIGNANCY. ROUTINE FOLLOW-UP IS RECOMMENDED IN ONE YEAR. RESULT CODE: 2 Benign Findings(s) DENSITY CODE: 2 (approximately 25-50% glandular) FOLLOW UP: 1YR The false-negative rate of mammography is approximately 10-percent. Management of a palpable abnormality must be based on clinical grounds. Patient was entered into a reminder system with a target due date for the next mammogram. Impression dictated by: Mary Moscoso M.D.06/13/2021 2:00 PM Dictation Location: [facility] Transcribed By: KOURTNEY 06/13/21 1400 Dictated By: Mary Moscoso MD 06/13/21 1352 Signed By: 06/13/21 1400 [facility] Vital Signs Date Time Vital Sign Value Performing Clinician Facility 07-14-2024 14:59-0500 Body height 158.8 cm Janel Coughlin [employer] Work Phone: [facility] 07-14-2024 14:59-0500 Body mass index (BMI) [Ratio] 25.99 kg/m2 Janel Coughlin [employer] Work Phone: [facility] 07-14-2024 14:59-0500 Body temperature 97.81 [degF] Janel Coughlin [employer] Work Phone: [facility] 07-14-2024 14:59-0500 Body weight 65.5 kg Janel Coughlin [employer] Work Phone: [facility] 07-14-2024 14:59-0500 Diastolic blood pressure 62 mm[Hg] Janel Coughlin [employer] Work Phone: [facility] 07-14-2024 14:59-0500 Heart rate 97 /min Janel Coughlin [employer] Work Phone: [facility] 07-14-2024 14:59-0500 Respiratory rate 16 /min Janel Coughlin [employer] Work Phone: [facility] 07-14-2024 14:59-0500 SaO2% (BldA) [Mass fraction] 99 % Janel Coughlin [employer] Work Phone: [facility] 07-14-2024 14:59-0500 Systolic blood pressure 122 mm[Hg] Janel Coughlin [employer] Work Phone: [facility] 12-22-2021 15:35-0400 Body height 162.56 cm Mary Mathew Other [employer] Other 12-22-2021 15:35-0400 Body mass index (BMI) [Ratio] 26.6 kg/m2 Mary Mathew Other [employer] Other 12-22-2021 15:35-0400 Body temperature 98.6 [degF] Mary Mathew Other [employer] Other 12-22-2021 15:35-0400 Body weight 70.31 kg Mary Mathew Other [employer] Other 12-22-2021 15:35-0400 Respiratory rate 18 /min Mary Mathew Other [employer] Other 12-22-2021 15:35-0400 SaO2% (BldA) [Mass fraction] 91 % Mary Mathew Other [employer] Other Encounters Encounter Date Encounter Type Care Provider Facility Start: 12-23-[address] [facility] Start: 12-20-2024 End: 12-20-2024 ambulatory SANDEEP BOOKERMACHELLE [facility] Start: 12-09-2024 End: 12-09-2024 [facility] Start: 12-02-2024 Evaluation and management of inpatient [facility] Start: 12-01-2024 Evaluation and management of inpatient [facility] Start: 11-30-2024 Evaluation and management of inpatient MAYRA [facility] Start: 11-30-2024 Evaluation and management of inpatient [facility] Start: 11-29-2024 Evaluation and management of inpatient [facility] Start: 11-28-2024 Evaluation and management of inpatient MAYRA YOUNG [facility] Start: 11-28-2024 Evaluation and management of inpatient [facility] Start: 11-27-2024 Evaluation and management of inpatient PHIL JEFFREY [facility] Start: 11-27-2024 Evaluation and management of inpatient MAYRA YOUNG [facility] Start: 11-26-2024 End: 11-26-2024 Evaluation and management of inpatient NORBERTO HARO [facility] Start: 11-26-2024 Evaluation and management of inpatient PHIL [facility] Start: 11-26-2024 Evaluation and management of inpatient MAYRA YOUNG [facility] Start: 11-25-2024 End: 11-25-2024 Evaluation and management of inpatient MAYRA YOUNG [facility] Start: 11-25-2024 Evaluation and management of inpatient [facility] Start: 11-25-2024 Evaluation and management of inpatient JOSE ALFREDO BARTON [facility] Start: 11-25-2024 Evaluation and management of inpatient RONNIE JEFFRIES [facility] Start: 11-24-2024 End: 12-02-2024 Evaluation and management of inpatient [facility] Start: 11-24-2024 ambulatory [facility] Start: 09-02-2024 End: 09-02-2024 ambulatory CHINA FORD Not Available Start: 09-02-2024 End: 09-02-2024 Farhan Ford MD Work Phone: [facility] Start: 09-02-2024 End: 09-02-2024 Farhan Ford MD Work Phone: [facility] Start: 09-02-2024 End: 09-02-2024 Office outpatient visit 25 minutes China Ford MD Work Phone: [facility] Comment on above: Perioral dermatitis (Primary Dx); Prurigo nodularis Start: 07-20-2024 End: 07-20-2024 Farhan Ford MD Work Phone: [facility] Start: 07-20-2024 End: 07-20-2024 Bamboo flowsheet China Ford MD Work Phone: [facility] Start: 07-20-2024 End: 07-20-2024 Office outpatient new 30 minutes China Ford MD Work Phone: [facility] Comment on above: Seborrheic keratosis (Primary Dx); Lentigines; Perioral dermatitis; Prurigo nodularis Start: 07-20-2024 End: 07-20-2024 ambulatory CHINA FORD Not Available Start: 07-14-2024 End: 07-14-2024 Office outpatient visit 15 minutes Janel Coughlin [employer] Work Phone: [facility] Comment on above: Hemorrhoids, unspeci fied hemorrhoid type (Primary Dx); Neoplasm of uncertain behavior Start: 07-14-2024 End: 07-14-2024 ambulatory JANEL COUGHLIN Not Available Start: 07-14-2024 End: 07-14-2024 Bamboo flowsheet Janel Coughlin [employer] Work Phone: [facility] Start: 07-14-2024 End: 07-14-2024 Bamboo flowsheet Janel Coughlin [employer] Work Phone: [facility] Start: 03-16-2024 End: 03-16-2024 ambulatory [facility] Start: 01-22-2024 End: 01-22-2024 ambulatory SHAIKH ZULEYMA Not Available Start: 06-12-2023 End: 06-12-2023 ambulatory Nila Calixto Other [employer] Other Start: 06-12-2023 Telephone encounter Nila Calixto [facility] Start: 10-31-2022 End: 11-01-2022 ambulatory SHAIKH Lee MAOR Facility: Start: 04-14-2022 Encounter for genera l adult medical examination without abnormal findings SHAIKH Lee AMOR [facility] Start: 04-10-2022 End: 04-11-2022 ambulatory NGO H ZULEYMA Facility:[facility] Start: 04-10-2022 End: 04-11-2022 Encounter for general adult medical examination without abnormal findings SHAIKH Lee ZULEYMA Facility:[facility] Start: 03-07-2022 End: 03-08-[address] HAYDE DURAN Facility:[facility] Start: 01-14-2022 End: 01-15-2022 ambulatory SHAIKH Lee AMOR Facility:[facility] Start: 12-22-2021 End: 12-22-2021 ambulatory Mary Mathew Other [employer] Other Start: 12-22-2021 Office outpatient ne w 20 minutes Mary Mathew [facility] Procedures Date Procedure Procedure Detail Performing Clinician Start: 12-20-2024 Follow-up visit PHIL JEFFREY Start: 12-09-2024 Follow-up visit PHIL JEFFREY Start: 11-24-2024 Follow-up visit PHIL JEFFREY Start: 12-23-2023 Mammography Janel melendez [employer] Work Phone: Start: 05-16-2022 Colonoscopy Janel melendez [employer] Work Phone: Plan of Treatment Date Care Activity Detail Author Start: 05-16-2032 Screening for malign ant neoplasm of colon [facility] Start: 07-20-2025 End: 07-20-2025 Patient encounter procedure 07/20/2025 2:00 PM EST Office Visit [facility] [address] [place] [address] China Ford MD [address] [place] [address] [facility] Start: 12-22-2024 Screening for malign ant neoplasm of breast Mammogram [facility] Start: 10-18-2024 End: 10-18-2024 Patient encounter procedure 10/18/2024 2:00 PM EDT Office Visit [facility] [address] [place] [phone] Janel Coughlin, [employer] [address] [place] [phone] [facility] Start: 09-30-2024 End: 09-30-2024 Patient encounter procedure 09/30/2024 2:00 PM EST Office Visit [facility] [address] [place] [phone] China Ford MD [address] [place], [place] [id number] [facility] Start: 08-19-2024 End: 08-19-2024 Patient encounter procedure 08/19/2024 2:15 PM EST Office Visit [facility] [address] [place] [phone] China Ford MD [address] [place] [address] [facility] Start: 07-20-2024 End: 07-20-2024 Patient encounter procedure 07/20/2024 10:00 AM EST Office Visit [facility] [address] [place] [phone] China Ford MD [address] [place] [address] Arrived [facility] Comment on above: Arrived Start: 07-19-2024 End: 07-19-2024 Patient encounter procedure 07/19/2024 2:00 PM EST Office Visit [facility] [address] [place] [phone] Janel Coughlin, [employer] [address] [place] [phone] [facility] Start: 07-14-2024 End: 07-14-2024 Patient encounter procedure 07/14/2024 3:00 PM EST Office Visit [facility] [address] [place] [address] Janel Coughlin, ANABELLA [address] [place] [address] Arrived [facility] Comment on above: Arrived Start: 04-04-2024 Influenza vaccination Influenza Vacc ine (#1) [facility] Start: 2019 Pneumococcal Vaccine : 65+ Years (1 of 1 - PCV) Pneumococcal Vaccine: 65+ Years (1 of 1 - PCV) [facility] Start: 1955 Screening for malign ant neoplasm of colon [facility] Immunizations Immunization Date Immunization Notes Care Provider Fa cility 09-13-2019 Influenza, injectabl e, Madin Sanaz Canine Kidney, preservative free, quadrivalent Janel Coughlin [employer] Work Phone: [facility] 09-13-2019 influenza virus vaccine, unspecified formulation Janel Coughlin [employer] Work Phone: [facility] Payers Date Payer Category Payer [facility] Blue [facility] BCBS [id number] 1959 [employer] Blue Shield [id number] 1959 Unknown [id number] 1955 Unknown [id number] [id number]. 2.593 1954 Unknown [id number] [id number]. 2.593 1954 Unknown [id number] [id number]. 2.593 1954 Unknown [id number] [id number]. 2.593 1954 Unknown [id number] [id number]. 2.1286 1954 Unknown [id number] [id number]. 2.1259 1954 Unknown [id number] [id number]. 2.1259 1954 Unknown [id number] [id number]. 2.1259 1955 Unknown [id number]. 2.1259 Social History Date Type Detail Facility Unknown if ever smoked [employer] Other Start: 01-22-2024 End: 09-03-2024 Sex Assigned At [employer] Other Start: 01-22-2024 Tobacco smoking status INIS Never smoked tobacco [facility] Start: 01-22-2024 Tobacco use and exposure Smokeless tobacco non-user [facility] Start: 01-22-2024 End: 09-03-2024 Alcoholic beverage intake Lifetime non-drinker (finding) [facility] Start: 01-22-2024 End: 09-03-2024 History of Social function [facility] Start: 1955 Sex assigned at Not on file [facility] NEGATED: Highlighted rowStart: NINF History of tobacco use Passive smoker [facility] Clinical Notes 12-22-2021 to 12-23-2024 Cihna Ford MD - 09/02/2024 2:00 PM Genie Ford MD - 07/20/2024 10:00 AM Edi Coughlin NP - 07/14/2024 3:46 PM Edi Coughlin NP - 07/14/2024 3:45 PM EST Note Date & Type Note Facility 12-23-2024 Note [facility] 12-20-2024 Note [facility] 12-09-2024 Note [facility] 12-02-2024 Note [facility] 12-02-2024 Note [facility] 12-02-2024 Note [facility] 12-02-2024 Note [facility] 12-02-2024 Note [facility] 12-02-2024 Note [facility] 12-01-2024 Note [facility] 12-01-2024 Note [facility] 12-01-2024 Note [facility] 11-30-2024 Note [facility] 11-30-2024 Note [facility] and [facility] have accepted. [facility] has started precert last night. Per CT Surgery pateint should be ready in next day or 2. SW advised son and patient of above. [facility] 11-30-2024 Note [facility] 11-30-2024 Note [facility] 11-29-2024 Note [facility] 11-29-2024 Note [facility] 11-29-2024 Note [facility] 11-29-2024 Note [facility] 11-29-2024 Note [facility] 11-28-2024 Note [facility] 11-28-2024 Note [facility] 11-28-2024 Note [facility] 11-28-2024 Note [facility] 11-27-2024 Note [facility] 11-27-2024 Note [facility] 11-27-2024 Note [facility] 11-27-2024 Note [facility] 11-26-2024 Note BLE PEDAL PULSES PRE SENT AND AUDIBLE PER DOPPLER POST PROCEDURE . [facility] 11-26-2024 Note [facility] 11-26-2024 Note [facility] 11-26-2024 Note [facility] 11-26-2024 Note [facility] 11-26-2024 Note 69 year old female Cath yesterday 90% left main and 90% ostial RCA stenosis IABP placed due to critical anatomy For CABG this am Procedure and relevant risks discussed with patient STS risk score 3% MAYRA YOUNG MD Physician Cardiac Surgery [phone] [facility] 11-25-2024 Note Problem: Pain - Adul t Goal: Verbalizes/displays adequate comfort level or baseline comfort level Outcome: Progressing Problem: Safety - Adult Goal: Free from fall injury Outcome: Progressing [facility] 11-25-2024 Note Case was discussed w Audanika the NUZHAT on 11/24/2024. I agree with the history, physical, assessment, and plan of care. I discussed the findings and therapeutic plan. I agree with the documentation, except for any updates below. Livia Corona MD [facility] 11-24-2024 Note - There was concern for unstable angina outpatient stress test was performed which was abnormal -Begin low intensity heparin infusion -N.p.o. at midnight for cardiac cath -ASA and Coreg has been started by cardiology team [facility] 11-24-2024 Note -Continue Protonix [facility] 11-24-2024 Note [facility] 09-02-2024 History of Presen t illness Narrative Images from the original note were not included. Follow up Diagnosis: Perioral dermatitis Location: upper cutaneous lip, chin Last visit: 1 month ago Symptoms: red, peeling Status: no change Previous treatment: none Current treatment: discontinued Doxycycline 50 mg bid due to GI upset. States the only antibiotic she tolerates is Augmentin. Used an antibiotic cream for this in the past which was helpful, does not remember name. Follow up Diagnosis: Prurigo nodularis Location: arms, legs Last visit: 1 month ago Symptoms: red, itchy Status: better but not as improved as she would like Current treatment: TAC 0.1% cream every day- helps a little Started using tanning bed to help with itching but so far it has not helped much All pertinent medical history, medications, and allergies were reviewed. General Exam: alert, oriented to person, place, and time, normal affect, well appearing Unaccompanied A focused exam completed based on patient reported problems, see below: 1. Perioral dermatitis Left Lower Cutaneous Lip, Mid Lower Cutaneous Lip, Right Buccal Cheek, Right Lower Cutaneous Lip Non-scaly erythematous patches and papules around the mouth. No change since last visit. The patient was counseled that perioral dermatitis is a rash which occurs on the face, usually around the mouth. It was explained that treatment for this condition is typically an oral antibiotic taken for 1-2 months. It was also mentioned that completion of treatment is important as the condition can return if the medication is discontinued too soon. Recommend gentle skin care on the face, avoid any harsh cleansers, scrubs, or exfoliating agents. Emphasized to avoid picking at areas. Start metronidazole cream every day. Instructed on use of prescribed medication. Cautioned to avoid harsh products to the face including witch jackie and make up wipes. May resume once condition improves. Plan to recheck in 3 weeks. Related Medications metroNIDAZOLE (Metrocream) 0.75 % cream Apply thin layer to face, once daily, 30 day supply 2. Prurigo nodularis Scattered lichenified excoriated nodules. No change since last visit. Patient counseled on prurigo nodularis. Instructed to refrain from scratching or picking itchy bumps on skin. Continue TAC cream, apply to affected areas, up to twice a day when flared, do not use one the face, groin, or underarms. Offered stronger topical steroid but patient wishes to wait for now. Instructed to call if worsening and we can phone in stronger topical steroid (ok to call in betamethasone diproprionate 0.05% cream, apply to affected areas bid prn when itching, hold if clear). Patient reports tanning beds have greatly helped with her itching. Discussed seeing Dr. Alan for light therapy so it is more controlled therapy rather than tanning bed use, patient declined referral. Discussed risk of skin cancer with tanning bed use, recommend patient try to limit use. Related Medications triamcinolone (Kenalog) 0.1 % cream Apply to affected areas, up to twice a day when flared, do not use one the face, groin, or underarms, 30 day supply Next Visit: 4 weeks for POD documented in this encounter [facility] 07-20-2024 History of Presen t illness Narrative Images from the original note were not included. Skin Check Location: Patient requests a full body skin examination Dermatologic history: no history of skin cancer, no history of atypical moles, no family history of melanoma Rash: Location: face Duration: months Quality: painful Modifying factors: aggravated by picking Associated symptoms: non-healing, red Treatments: none New patient All pertinent medical history, medications, and allergies were reviewed. General Exam: alert, oriented to person, place, and time, normal affect, well appearing Unaccompanied Scalp, Examined , exam limited by hair, patient left hair in clip Right leg Examined Head, Face Examined , Patient declined to remove makeup Left leg Examined Neck Examined Right foot Examined Chest Examined Left foot Examined Back Examined Buttocks Examined Abdomen Examined Digits,nails: Examined Right arm Examined Left arm Examined Lymphatics: Not examined Hands Examined 1. Seborrheic keratosis Stuck on verrucous, martinez-brown papules and plaques. Patient was counseled regarding these benign growths. Removal is normally not necessary, but they may be removed if they are symptomatic or for cosmetic reasons. 2. Lentigines Scattered martinez macules in sun-exposed areas. The patient was informed that lentigines are benign pigmented lesions that occur on sun-exposed and sun-damaged skin. No treatment is necessary. Recommended regular use of broad spectrum sunscreen SPF 30 or higher 3. Perioral dermatitis Left Lower Cutaneous Lip, Mid Lower Cutaneous Lip, Right Buccal Cheek, Right Lower Cutaneous Lip Non-scaly erythematous patches and papules around the mouth The patient was counseled that perioral dermatitis is a rash which occurs on the face, usually around the mouth. It was explained that treatment for this condition is typically an oral antibiotic taken for 1-2 months. It was also mentioned that completion of treatment is important as the condition can return if the medication is discontinued too soon. Recommend gentle skin care on the face, avoid any harsh cleansers, scrubs, or exfoliating agents. Emphasized to avoid picking at areas. Start Doxycycline 50 mg BID x 30 days. Recommend patient take medication with food but not dairy, sit up for 30 min after taking medication, wear sunscreen as this medication increases sun sensitivity, and discontinue medication and notify clinic if new headaches/vision changes or other side effects occur. Follow up in 1 month. Related Medications doxycycline (Monodox) 50 MG capsule Take 1 capsule, by mouth, bid, 30 days 4. Prurigo nodularis Scattered lichenified excoriated nodules. Patient counseled on prurigo nodularis. Instructed to refrain from scratching or picking itchy bumps on skin. Educational handout given. Start TAC cream, apply to affected areas, up to twice a day when flared, do not use one the face, groin, or underarms. triamcinolone (Kenalog) 0.1 % cream Apply to affected areas, up to twice a day when flared, do not use one the face, groin, or underarms, 30 day supply Next Visit: 1 month, follow up/1 year, skin check documented in this encounter [facility] 07-14-2024 History of Presen t illness Narrative Associated Problem(s): Neoplasm of uncertain behavior Lesions on face- red, scattered. Ongoing intermittently for 2 weeks. Uncertain cause or correlation. Denies pain associated. Referral sent to Dermatology Associated Problem(s): Hemorrhoids Was seen at Dr. Frederick office for [...] pain, GO TO ER, pt verbalized understanding. Images from the original note were not included. Subjective Patient ID: Shruthi Cristobal is a 68 y.o. female who presents for Hemorrhoids. HPI Was seen at Dr. Frederick office for [...] days to follow up with ' office. Lesions on face- red, scattered. Ongoing intermittently for 2 weeks. Uncertain cause or correlation. Denies pain associated. Referral sent to Dermatology Review of Systems Constitutional: Negative for activity change, appetite change, chills, diaphoresis, fatigue, fever and unexpected weight change. HENT: Negative for congestion, ear pain, rhinorrhea, sinus pressure, sinus pain, sneezing, sore throat, trouble swallowing and voice change. Eyes: Negative for visual disturbance. Respiratory: Negative for cough, chest tightness, shortness of breath and wheezing. Cardiovascular: Negative for chest pain, palpitations and leg swelling. Gastrointestinal: Positive for rectal pain. Negative for abdominal distention, abdominal pain, blood in stool, constipation, diarrhea and vomiting. Genitourinary: Negative for decreased urine volume, dysuria, flank pain, frequency, hematuria and urgency. Musculoskeletal: Negative for arthralgias, gait problem, joint swelling and myalgias. Skin: Positive for rash. Neurological: Negative for dizziness, tremors, syncope, weakness, light-headedness and headaches. Psychiatric/Behavioral: Negative for decreased concentration and suicidal ideas. The patient is not nervous/anxious. Hematological: Does not bruise/bleed easily. Endocrine: Negative for cold intolerance, heat intolerance, polydipsia, polyphagia and polyuria. Objective Physical Exam Vitals reviewed. Constitutional: Appearance: Normal appearance. HENT: Right Ear: Tympanic membrane normal. Left Ear: Tympanic membrane normal. Nose: Nose normal. Mouth/Throat: Mouth: Mucous membranes are moist. Pharynx: Oropharynx is clear. Eyes: Pupils: Pupils are equal, round, and reactive to light. Cardiovascular: Rate and Rhythm: Normal rate and regular rhythm. Pulses: Normal pulses. Heart sounds: Normal heart sounds. Pulmonary: Effort: Pulmonary effort is normal. Breath sounds: Normal breath sounds. Abdominal: General: Abdomen is flat. Bowel sounds are normal. Palpations: Abdomen is soft. Skin: Capillary Refill: Capillary refill takes less than 2 seconds. Findings: Rash present. Rash is macular. Neurological: Mental Status: She is alert and oriented to person, place, and time. Assessment/Plan Problem List Items Addressed This Visit Neoplasm of uncertain behavior Lesions on face- red, scattered. Ongoing intermittently for 2 weeks. Uncertain cause or correlation. Denies pain associated. Referral sent to Dermatology Relevant Orders Ambulatory referral to Dermatology Hemorrhoids - Primary Was seen at Dr. Frederick office for [...] pain, GO TO ER, pt verbalized understanding. Relevant Medications Lidocaine-Hydrocort, Perianal, 3-0.5 % cream documented in this encounter [facility] 07-14-2024 Instructions Janel Coughlin NP - 07/14/2024 3:00 PM EST Use cream as directed on label. If symptoms worsen or do not improve in [address] Frederick' office to be seen again. Blood in stool, dizziness, pain, GO TO ER! documented in this encounter [facility] 03-07-2022 Note PROCEDURE: XR ANKLE LT MIN 3 V, XR FOOT LT MIN 3 VIEWS COMPARISON: 02/22/2021 HISTORY: Pain of left ankle joint FINDINGS: BONES:Elevation of the plantar arch. Plantar angulation of the navicular in relation to the tarsals, stable. Moderate plantar enthesopathic spurring of the calcaneus. Stable degenerative changes with joint space narrowing, most significant at the first metatarsal-phalangeal joint SOFT TISSUES:Moderate ankle soft tissue swelling EFFUSION:None visible. OTHER: Negative. IMPRESSION: Stable degenerative changes Electronically authenticated by: HAYDE DURAN Date: 2022-03-07 20:36 [facility] 03-07-2022 Note PROCEDURE: XR ANKLE LT MIN 3 V, XR FOOT LT MIN 3 VIEWS COMPARISON: 02/22/2021 HISTORY: Pain of left ankle joint FINDINGS: BONES:Elevation of the plantar arch. Plantar angulation of the navicular in relation to the tarsals, stable. Moderate plantar enthesopathic spurring of the calcaneus. Stable degenerative changes with joint space narrowing, most significant at the first metatarsal-phalangeal joint SOFT TISSUES:Moderate ankle soft tissue swelling EFFUSION:None visible. OTHER: Negative. IMPRESSION: Stable degenerative changes Electronically authenticated by: HAYDE DURAN Date: 2022-03-07 20:36 [facility] 12-22-2021 Evaluation note Encounter Date Diagnosis Assessment Notes December, Walking pneumonia (ICD-10 - J18.9) Take medications as directed. Rest and increase fluid intake. Take meds with food to prevent stomach upset. Use inhaler as needed for coughing spells and SOB. It is better to use inhaler a few times a day over the next 2-3 days. Follow up with primary care provider if symptoms do not improve with treatment plan, although it may take a few weeks for the cough to go away December, COVID-19 (ICD-10 - U07.1) Today you tested positive for the COVID virus. This mean you need to follow all CDC quarantine guidelines found at coronavirus.oh io.gov. It is important to rest, increase fluids, and stay at home. Contact PCP and inform them of results. Medications like Mucinex, Cepacol, Tylenol, saline nasal spray are over the counter medications that can help with the symptoms. Current guidelines include staying home, having no fever above 100.4 for 24 hours without medication and having significant improvement of symptoms before you are allowed to stop your quarantine.. For full guidelines go to CDC. GOV. Contact primary care and ask for guidance is essential to follow up * EDUCATION HANDOUT GIVEN ON OTC TREATMENTS, FOLLOW UP AND WHEN TO SEEK EMERGENCY TREATMENT December, Chills (ICD-10 - R68.83) December, Nausea (ICD-10 - R11.0) Nausea can be caused because of symptoms of other illnesses, gastro related viruses, headaches, etc. Use medication as directed. Encourage fluid intake and try to start with small sips of fluid. Watch for signs and symptoms of dehydration including decrease in urine output, dry mucus membranes, etc. Fluid intake is more important than food intake. Follow up with primary care provider if no improvement of symptoms within the next few days. Seek emergency treatment if signs of dehydration occur such as decrease in urine, dry mouth, etc [facility] Other Evaluation [facility]No [facility] Other Evaluation note* Diagnosis URTI (acute upper respiratory infection)- Primary Acute upper respiratory infections of unspecified site Other hyperlipidemia (CMS/HCC) Hemorrhoids, unspecified hemorrhoid type- Primary Neoplasm of uncertain behavior Neoplasm of uncertain behavior, site unspecified [facility] Diagnosis URTI (acute upper respiratory infection)- Primary Acute upper respiratory infections of unspecified site Other hyperlipidemia (CMS/HCC) Hemorrhoids, unspecified hemorrhoid type- Primary Neoplasm of uncertain behavior Neoplasm of uncertain behavior, site unspecified Seborrheic keratosis- Primary Lentigines Perioral dermatitis Rosacea Prurigo nodularis Lichenification and lichen simplex chronicus [facility] Diagnosis URTI (acute upper respiratory infection)- Primary Acute upper respiratory infections of unspecified site Other hyperlipidemia (CMS/HCC) Hemorrhoids, unspecified hemorrhoid type- Primary Neoplasm of uncertain behavior Neoplasm of uncertain behavior, site unspecified Perioral dermatitis- Primary Rosacea Prurigo nodularis Lichenification and lichen simplex chronicus [facility] Narrative - Reported* Type Description Date Surgical History thorasic outlet Surgical History fracture repair Surgical History tonsillectomy Surgical History wisdom teeth Surgical History colonoscopy Surgical History tubal ligation Hospitalization History see above [employer] Other Summary Purpose Family History No Family History Records FoundNo Family History Records FoundNo Family History Records FoundNo Family History Records FoundNo Family History Records Found Advance Directives No Advanced Directives Records FoundNo Advanced Directives Records FoundNo Advanced Directives Records FoundNo Advanced Directives Records FoundNo Advanced Directives Records Found Additional Source Comments INFORMATION SOURCE (unrecogn ized section and content) DATE CREATED AUTHOR 09/20/2021 [facility] DATE CREATED AUTHOR AUTHOR'S ORGANIZ ATION 11/09/2022 [facility] DATE CREATED AUTHOR AUTHOR'S ORGANIZ ATION 03/18/2024 [facility] DATE CREATED AUTHOR AUTHOR'S ORGANIZ ATION 09/04/2024 [facility] EPIC DATE CREATED AUTHOR AUTHOR'S ORGANIZ ATION 01/06/2025 [facility] REASON FOR VISIT (unrecogniz ed section and content) Reason Comments Hemorrhoids Reason Comments Skin Check Rash Reason Comments Follow-up Care Teams (unrecognized sec tion and content) [employer] Relationship Specialty Start Date End Date Juan Contreras MD [address] [place] [address] PCP - General Family Medicine 04/28/24 Janel Coughlin NP [address] [place] [address] Nurse Practitioner Family Medicine 04/28/24 [employer] Manager Relationship Specialty Start Date End Date Juan Contreras MD [address] [place] [phone] PCP - General Family Medicine 04/28/24 Janel Coughlin NP [address] [place] [address] Nurse Practitioner Family Medicine 04/28/24 [employer] Manager Relationship Specialty Start Date End Date Juan Contreras MD [address] [place] [phone] PCP - General Family Medicine 04/28/24 Janel Coughlin NP [address] [place] [address] Nurse Practitioner Family Medicine 04/28/24 [employer] Manager Relationship Specialty Start Date End Date Juan Contreras MD [address] [place] [phone] PCP - General Family Medicine 04/28/24 Janel Coughlin NP [address] [place] [address] Nurse Practitioner Family Medicine 04/28/24 [employer] Relationship Specialty Start Date End Date Juan Contreras MD [address] [place] [address] PCP - General Family Medicine 04/28/24 Janel Coughlin NP [address] [place] [address] Nurse Practitioner Family Medicine 04/28/24 [employer] Manager Relationship Specialty Start Date End Date Juan Contreras MD [address] [place] [phone] PCP - General Family Medicine 04/28/24 Janel Coughlin NP [address] [place] [address] Nurse Practitioner Family Medicine 04/28/24 FOR RECORDS PERTAINING TO PATIENTS WHO ARE OR HAVE BEEN ENROLLED IN A CHEMICAL DEPENDENCY/SUBSTANCEABUSE PROGRAM, SOME INFORMATION MAY BE OMITTED. This clinical summary was aggregated from multiple sources. Caution should be exercised in using it in the provision of clinical care. This summary normalizes information from multiple sources, and as a consequence, information in this document may materially change the coding, format and clinical context of patient data. In addition, data may be omitted in some cases. CLINICAL DECISIONS SHOULD BE BASED ON THE PRIMARY CLINICAL RECORDS. [employer] provides no warranty or guarantee of the accuracy or completeness of information in this document.
--- OUTSIDE RECORDS SUMMARY | 2025-04-08 07:34 | XMS_ITS | Encounter Summary ---
Author Organization [facility] Address [address] [place] [address] Care Team Providers Care Break And Load Operator Name Role Phone Shaikh DIANE Guardado Primary Care Provider [phone] Juan Contreras MD Primary Care Provider [phone] Janel Coughlin NP Unavailable Shaikh DIANE Guardado Unavailable [phone] Encounter Details Date Type Department Care Team (Late st Contact Info) Description 12/24/2023 Orders Only [facility] [address] [place] [address] Shaikh Guardado MD [address] [place] [address] Social History Tobacco Use Types Packs/Day Years [...] Dermatology [address] [place] [address] China Armstrong MD [address] [place] [address] documented as of this encounter Visit Diagnoses Not on filedocumented in this encounter Care Teams Break And Load Operator Relationship Specialty Start Date End Date Shaikh Guardado MD [address] [place] [address] PCP - General Internal Medicine 01/22/24 04/27/24 Juan Contreras MD [address] [place] [phone] PCP - General Family Medicine 04/28/24 09/07/24 Shaikh Guardado MD [address] [place] [phone] PCP - [facility] 10/02/24 Janel Coughlin NP [address] [place] [phone] Nurse Practitioner Family Medicine 04/28/24 09/07/24 documented as of this encounter
--- OUTSIDE RECORDS SUMMARY | 2025-04-08 07:34 | XMS_ITS | Encounter Summary ---
Author Organization [facility] Address [address] [place] [address] Care Team Providers Care Laundry Route Driver Name Role Phone Shaikh DIANE Guardado Primary Care Provider [phone] Juan Contreras MD Primary Care Provider [phone] Janel Coughlin NP Unavailable [phone] Shaikh DIANE Guardado Unavailable [phone] Encounter Details Date Type Department Care Team (Late st Contact Info) Description 12/23/2023 Clinisync Result Encounter [facility] External Department Unsolicited Provider, Generic External Data Social History Tobacco Use Types Packs/Day Years [...] Description 07/20/2025 2:00 PM EST Office Visit [facility] [address] [facility] [address] [place] [address] China Armstrong MD [address] [facility] [address] [place] [address] documented as of this encounter Procedures Procedure Name Priority Date/Time Associated Diagnosis Comments MM TOMOSYNTHESIS SCREENING BI 12/23/2023 2:19 PM EDT documented in this encounter Results * MM TOMOSYNTHESIS SCREENING BI (12/23/2023 2:19 PM EDT) Anatomical Region Laterality Modality Other 12/23/2023 2:19 PM EDT Narrative 12/23/2023 2:19 PM EDT [address] [address] Mammography Report Signed Patient: SHRUTHI NIX MR#: [id number] : 1955 Acct:[id number] Age/Sex: 68 / F ADM Date: 12/20/23 Loc: MAMMO Attending Dr: Hayde Duran M.D. Ordering Physician: Hayde Duran M.D. Results: Date of Service: 12/20/23 Follow Up: Procedure(s): MM tomosynthesis screening BI Accession Number(s): [id number] cc: Shaikh Mabel Guardado; Hayde Duran M.D. Patient Name: SHRUTHI NIX MR#: [id number] : 1955 Exam Date: 12/20/2023 Ordering Doctor: [...] Treatments None Family Cancers None LOCATION: [facility] BREAST COMPOSITION: The breasts are heterogeneously dense,which [...] Beyer M.D. Signed By: 12/23/23 1419 DD/ 18 TD/TT: [place]: Procedure Note Radiology, Radiologist, MD - 12/23/2023 [facility] [place] [id number] Mammography Report Signed Patient: SHRUTHI NIX LMR#: [id number] : 5Acct:[id number] Age/Sex: 68 / FADM Date: 12/20/23 Loc: MAMMO Attending Dr: Hayde Duran M.D. Ordering Physician: Hayde Duran M.D.Results: Date of Service: 12/20/23Follow Up: Procedure(s): MM tomosynthesis screening BI Accession Number(s): [id number] cc: Shaikh Mabel Guardado; Hayde Duran M.D. Patient Name: SHRUTHI NIX MR#: [id number] : 1955 Exam Date: 12/20/2023 Ordering Doctor: [...] Treatments None Family Cancers None LOCATION: [facility] BREAST COMPOSITION: The breasts are heterogeneously dense,which [...] M.D. Signed By:12/23/23 1419 DD/ 1419 TD/TT: [place] [place]: us Generic External Data Provider [facility] Final Result documented in this encounter Visit Diagnoses Not on filedocumented in this encounter Care Teams Laundry Route Driver Relationship Specialty Start Date End Date Shaikh Guardado MD [address] [place] [phone] PCP - General Internal Medicine 01/22/24 04/27/24 Juan Contreras MD [address] [place] [address] PCP - General Family Medicine 04/28/24 09/07/24 Shaikh Guardado MD [address] [place] [address] PCP - [facility] 10/02/24 Janel Coughlin NP [address] [place] [phone] Nurse Practitioner Family Medicine 04/28/24 09/07/24 documented as of this encounter
--- OUTSIDE RECORDS SUMMARY | 2025-04-08 07:34 | XMS_ITS | Encounter Summary ---
Author Organization [facility] Address [address] [place] [address] Care Team Providers Care Ticket Maker Name Role Phone Mike Terry MD Primary Care Provider [phone] Encounter Details Date Type Department Care Team (Late st Contact Info) Description 12/06/2024 Lab Requisition [facility] Lab [address] [place] [address] Kunal Vu MD [address] [place] [address] Social History Tobacco Use Types Packs/Day Years Used Date Smoking Tobacco: Never Smokeless Tobacco: Never Alcohol Use Standard Drinks/Week Comments Never 0 (1 standard drink = 0.6 oz pur e alcohol) [facility] Utilities Answer Date Recorded In the past 12 months has [facility], gas, oil, or water company threatened to [...] and heating? Not hard at all 11/24/2024 PHQ-2 Answer Date Recorded Patient Health Questionnaire-2 Score 0 12/09/2024 Transportation Answer Date Recorded In the past [...] any time in the past [address] [facility], were you homeless or living in a [facility] (including now)? No 11/24/2024 Hunger Vital Sign [...] on file documented as of this encounter Functional Status documented as of this encounter Plan of Treatment Not on file documented as of this encounter Procedures Procedure Name Priority Date/Time Associated Diagnosis Comments CBC WITH AUTO DIFFERENTIAL Routine 12/06/2024 3:50 AM EDT CBC AND DIFFERENTIAL Routine 12/06/2024 3:50 AM EDT BASIC METABOLIC PANEL Routine 12/06/2024 3:50 AM EDT documented in this encounter Results * (ABNORMAL) CBC auto differential (12/06/2024 3:50 AM EDT) Auto WBC 11.24(H) 4.00 - 10.60 10*3/uL 12/06/2024 4:52 AM EDT [facility] ([facility]) RBC 3.63(L) 3.80 - 5.00 10*6/uL 12/06/2024 4:52 AM EDT [facility] ([facility]) Hemoglobin 10.4(L) 12.0 - 15.0 g/dL 12/06/2024 4:52 AM [facility] ([facility]) Hematocrit 32.7(L) 36.0 - 45.0 % 12/06/2024 4:52 AM EDT [facility] ([facility]) MCV 90.1 82.0 - 98.0 fL 12/06/2024 4:52 AM [facility] ([facility]) MCH 28.7 27.0 - 33.0 pg 12/06/2024 4:52 AM EDT [facility] ([facility]) MCHC 31.8(L) 32.0 - 35.0 g/dL 12/06/2024 4:52 AM [facility] ([facility]) RDW 13.5 11.5 - 15.0 % 12/06/2024 4:52 AM [facility] ([facility]) Neutrophils % 64.8 40.0 - 72.0 % 12/06/2024 4:52 AM [facility] ([facility]) Lymphocytes % 23.9 20.0 - 45.0 % 12/06/2024 4:52 AM [facility] ([facility]) Monocytes % 7.1 5.0 - 12.0 % 12/06/2024 4:52 AM [facility] ([facility]) Eosinophils % 1.8 0.0 - 6.0 % 12/06/2024 4:52 AM [facility] ([facility]) Basophils % 0.4 0.0 - 1.0 % 12/06/2024 4:52 AM [facility] ([facility]) Neutrophils Absolute 7.27 1.60 - 7.60 10*3/uL 12/06/2024 4:52 AM [facility] ([facility]) Lymphocytes Absolute 2.69 1.20 - 4.00 10*3/uL 12/06/2024 4:52 AM [facility] ([facility]) Monocytes Absolute 0.80 0.10 - 1.00 10*3/uL 12/06/2024 4:[facility] [address] [facility] Eosinophils Absolute 0.20 0.00 - 0.50 10*3/uL 12/06/2024 4:[address] [facility] Basophils Absolute 0.05 0.00 - 0.20 10*3/uL 12/06/2024 4:52 AM EDT [facility] ([facility]) Platelets 656(H) 150 - 400 10*3/uL 12/06/2024 4:52 AM EDT [facility] ([facility]) nRBC % 0.0 0 % 12/06/2024 4:52 AM EDT [facility] ([facility]) Immature Granulocytes % 2.0(H) 0.0 - 1.0 % 12/06/2024 4:52 AM EDT [facility] ([facility]) Immature Granulocytes Absolute 0.23(H) 0.00 - 0.20 10*3/uL 12/06/2024 4:52 AM EDT [facility] ([facility]) Blood Venous blood specimen / Unknown Venipuncture / Unknown 12/06/2024 3:50 AM EDT 12/06/2024 4:07 AM EDT us Kunal Vu MD LAB BLOOD ORDERABLES Final Resu lt [facility]) [address] [place] [address] * Basic metabolic panel (12/06/2024 3:50 AM EDT) Sodium 138 136 - 145 mmol/L 12/06/2024 4:44 AM EDT [facility] ([facility]) Potassium 4.7 3.5 - 5.1 mmol/L 12/06/2024 4:44 AM EDT [facility] ([facility]) Chloride 105 98 - 107 mmol/L 12/06/2024 4:44 AM EDT [facility] ([facility]) CO2 28 21 - 31 mmol/L 12/06/2024 4:44 AM EDT [facility] ([facility]) BUN 15 7 - 25 mg/dL 12/06/2024 4:44 AM EDT [facility] ([facility]) Creatinine 0.93 0.60 - 1.20 mg/dL 12/06/2024 4:44 AM EDT [facility] ([facility]) Glucose 90 70 - 100 mg/dL 12/06/2024 4:44 AM EDT [facility] ([facility]) Calcium 8.9 8.6 - 10.3 mg/dL 12/06/2024 4:44 AM EDT [facility] ([facility]) Anion Gap 10 7 - 20 mmol/L 12/06/2024 4:44 AM EDT [facility] ([facility]) eGFR 66.1 >60.0 mL/min/1. 73m*2 12/06/2024 4:44 AM EDT [facility] ([place]) Comment:The [facility] s estimated glomerular filtration rate (eGFR) will [...] disproportionately affect any one group of individuals. 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
--- OUTSIDE RECORDS SUMMARY | 2025-04-08 07:35 | XMS_ITS | Encounter Summary ---
Author Organization [facility] Address [address] [place] [address] Care Team Providers Care Paper Bag Machine Operator Name Role Phone Shaikh DIANE Guardado Primary Care Provider [phone] Juan Contreras MD Primary Care Provider [phone] Janel Coughlin NP Unavailable [phone] Shaikh DIANE Guardado Unavailable [phone] Encounter Details Date Type Department Care Team (Late st Contact Info) Description 02/19/2024 Clinisync Result Encounter [facility] External Department Unsolicited Provider, Generic External Data Social History Tobacco Use Types Packs/Day Years Used Date Smoking Tobacco: Never Passive Smoke Exposure: Never Smokeless Tobacco: Never Alcohol Use Standard Drinks/Week Comments Never 0 (1 standard drink = 0.6 oz pur e alcohol) PHQ-2 Answer Date Recorded Patient Health Questionnaire-2 Score 0 01/22/2024 Comments Unknown Sex and Gender Information Value Date Recorded Sex Assigned at Not on file Legal Sex Female 7:34 PM EDT Gender Identity Not on file Sexual Orientation Not on file documented as of this encounter Plan of Treatment Upcoming Encounters Date Type Department Care Team (Late st Contact Info) Description 07/20/2025 2:00 PM EST Office Visit [facility] [address] [place] [phone] China Armtsrong MD [address] [place] [address] documented as of this encounter Procedures Procedure Name Priority Date/Time Associated Diagnosis Comments FACILITY EST COMPREHENSIVE 02/19/2024 4:31 PM EDT documented in this encounter Results * [facility] EST COMPREHENSIVE (02/19/2024 4:31 PM EDT) Anatomical Region Laterality Modality Other 02/19/2024 4:31 PM EDT Narrative 02/19/2024 4:32 [place] [address] Vein Report Signed Patient: SHRUTHI NIX MR#: [id number] : 1955 Acct:[id number] Age/Sex: 68 / F ADM Date: 02/19/24 Loc: Attending Dr: Hayde Duran M.D. Ordering Physician: Hayde Duran M.D. Date of Service: 02/19/24 Procedure(s): [facility] EST Comprehensive Accession Number(s): [id number] cc: Shaikh Mabel Guardado; Hayde Duran M.D. Patient Name: SHRUTHI NIX MR#: [id number] : 1955 Exam Date: 02/19/2024 Ordering Doctor: DR HAYDE DURAN M.D. RADIOLOGY REPORT PROCEDURE: [facility] - OFFICE VISIT INITIAL COMPARISON: None. PROGRESS NOTES: [age] year old female who presents with a 40 year history of lower extremity swelling, aching, cramping. The patient's left leg symptoms are worse than the right. There has been a progression of symptoms over past several months. This increases with prolonged standing. The patient describes an improvement with compression stockings, exercise, elevation, and khhg-dkm-ghivpic medication. The patient denies any signs and symptoms to suggest arterial ischemia. The patient describes a family history varicose veins on paternal side. The patient has drinking and smoking history of : None. Patient has a past medical history significant for varicose veins, hypercholesterolemia, prior back injury. The patient denies a history of deep venous thrombus or pulmonary embolus. See separate history and physical for medication list. No prior treatment for varicose or spider veins. Current use of compression stockings. After review of nurse notes, history and physical exam I discussed at length the pathophysiology of venous hypertension and possible treatments, therapies and strategies available. We discussed at length the importance of elevating the lower extremities above the level of the heart, increased physical activity and compression stocking use. Ultrasound venous reflux study performed today was discussed at length with the patient. The report demonstrates abnormally dilated and incompetent great saphenous veins bilaterally with associated incompetent branch saphenous varicosities. PHYSICAL EXAM: The right leg demonstrates a few dilated varicosities, scattered spider veins, no ulceration, mild edema, no skin discoloration. The left leg demonstrates a few dilated varicosities, scattered spider veins, no ulceration, moderate edema, no skin discoloration. Both thighs, legs and feet were symmetrically warm to the touch. Good posterior tibial and dorsalis pedis pulses were present bilaterally. VEIN/VC Facility EST Comprehensive IMPRESSION: 1. Bilateral lower extremity venous insufficiency 2. Bilateral lower extremity varicose veins 3. Moderate lower extremity subcutaneous edema 4. No flow significant arterial disease 5. CEAP: C3, EC, , CO PLAN: 1. Continued use of compression stockings 2. Elevated legs and increased physical activity symptomatic relief 3. Endovenous laser ablation of left great saphenous vein, right great saphenous vein. 4. Microfoam chemical ablation of bilateral branch saphenous varicosities. 5. Bilateral sclerotherapy. Nurse notes, history and physical were reviewed and confirmed, see attached forms. The nurse was present throughout the physical exam and consultation Dictated by: Rajeev Beyer M.D. on 02/19/2024 at 16:26 Approved by: Rajeev Beyer M.D. on 02/19/2024 at 16:31 Dictated By: Rajeev Beyer M.D. Signed By: 02/19/24 1632 DD/ 1631 TD/TT: Split And Drum Room Supervisor: Procedure Note Radiology, Radiologist, - 02/19/[address] [address] Vein Report Signed Patient: SHRUTHI NIX LMR#: [id number] : 5Acct:[id number] Age/Sex: 68 / FADM Date: 02/19/24 Loc: [facility] Attending Dr: Hayde Duran M.D. Ordering Physician: Hayde Duran M.D. Date of Service: 02/19/24 Procedure(s): [facility] Comprehensive Accession Number(s): [id number] cc: Shaikh Mabel Guardado; Hayde Duran M.D. Patient Name: SHRUTHI NIX MR#: [id number] : 1955 Exam Date: 02/19/2024 Ordering Doctor: DR HAYDE DURAN M.D. RADIOLOGY REPORT PROCEDURE: [facility] - OFFICE VISIT INITIAL COMPARISON: None. PROGRESS NOTES: [age] year old female who presents with a 40 year history of lower extremity swelling, aching, cramping. The patient's left leg symptoms are worse than the right. There has been a progression of symptoms over past several months. This increases with prolonged standing. The patientdescribes an improvement with compression stockings, exercise, elevation, and efkd-qji-puxsvdw medication. The patient denies any signs and symptoms to suggest arterial ischemia. The patient describes a family history varicose veins on paternal side.The patient has drinking and smoking history of : None. Patient has a past medical history significant for varicose veins, hypercholesterolemia,prior back injury. The patient denies a history of deep venous thrombus or pulmonary embolus. See separate history and physical for medication list. No prior treatmentfor varicose or spider veins. Current use of compression stockings. After review of nurse notes, history and physical exam I discussed atlength the pathophysiology of venous hypertension and possible treatments,therapies and strategies available. We discussed at length the importance ofelevating the lower extremities above the level of the heart, increased physical activity and compression stocking use. Ultrasound venous reflux study performed today was discussed at lengthwith the patient. The report demonstrates abnormally dilated and incompetentgreat saphenous veins bilaterally with associated incompetent branch saphenous varicosities. PHYSICAL EXAM: The right leg demonstrates a few dilated varicosities, scattered spiderveins, no ulceration, mild edema, no skin discoloration. The left leg demonstrates a few dilated varicosities, scattered spiderveins, no ulceration, moderate edema, no skin discoloration. Both thighs, legs and feet were symmetrically warm to the touch. Good posterior tibial and dorsalis pedis pulses were present bilaterally. VEIN/VC Facility EST Comprehensive IMPRESSION: 1. Bilateral lower extremity venous insufficiency 2. Bilateral lower extremity varicose veins 3. Moderate lower extremity subcutaneous edema 4. No flow significant arterial disease 5. CEAP: C3, EC, , CO PLAN: 1. Continued use of compression stockings 2. Elevated legs and increased physical activity symptomatic relief 3. Endovenous laser ablation of left great saphenous vein, right great saphenous vein. 4. Microfoam chemical ablation of bilateral branch saphenous varicosities. 5. Bilateral sclerotherapy. Nurse notes, history and physical were reviewed and confirmed, seeattached forms. The nurse was present throughout the physical exam and consultation Dictated by: Rajeev Beyer M.D. on 02/19/2024 at 16:26 Approved by: Rajeev Beyer M.D. on 02/19/2024 at 16:31 Dictated By: Rajeev Beyer M.D. Signed By:02/19/24 1632 DD/ 1631 TD/TT: Split And Drum Room Supervisor: Generic External Data Provider [facility] Final Result documented in this encounter Visit Diagnoses Not on filedocumented in this encounter Care Teams Paper Bag Machine Operator Relationship Specialty Start Date End Date Shaikh Guardado MD [address] [place] [phone] PCP - General Internal Medicine 01/22/24 04/27/24 Juan Contreras MD [address] [place] [phone] PCP - General Family Medicine 04/28/24 09/07/24 Shaikh Guardado MD [address] [place] [phone] [facility] 10/02/24 Janel Coughlin NP [address] [place] [address] Nurse Practitioner Family Medicine 04/28/24 09/07/24 documented as of this encounter
--- OUTSIDE RECORDS SUMMARY | 2025-04-08 07:35 | XMS_ITS | Patient Health Record ---
Author Organization [facility] in [place] Address [address] [place] [address] Care Team Providers Care Wet Inspector Optical Glass Name Role Phone Emil Terry Primary Care Provider [phone] Allergies Allergen (clinical drug ingredient) Drug/Non Drug Allergy documented on EMR Reaction Allergy Type Onset Date Status codeine Codeine vomiting Drug Allergy Active doxycycline Doxycycline Unknown Drug Allergy Act madeleine Results Component Value Reference Range Notes ITP Reviewed date:12/29/2024 09:37:21 AM Interpretation: Performing Lab: Notes/Report: Source Facility: [place] [address] Cardiac Rehab Report Signed Patient: SHRUTHI NIX MR#: [id number] : 1955 Acct:[id number] Age/Sex: 69 / F ADM Date: 12/28/24 Loc: CR Attending Dr: SANDEEP PELLETIER Ordering Physician: Misael Campos D.O. Date of Service: 12/29/24 Procedure(s): ITP Accession Number(s): [id number] cc: [facility] Test Date: 2024-12-29 Pat Name: SHRUTHI NIX Department: Room: - Gender: Female Supervisor Framing Mill: : 1955 Requested By: Misael Campos Order Number: [id number] Reading MD: Misael Campos Interpretive Statements Okay to proceed with outlined treatment plan. Electronically Signed On 12-29-2024 9:17:12 EDT by Misael Campos Dictated By: Misael Campos D.O. Signed By: 12/29/24 0912/29/24916 DD/ 4 TD/TT: Trouble Operator: [place] [address] Cardiac Rehab Report Signed Patient: SARTHAK NIX MR#: [id number] : 1955 Acct:[id number] Age/Sex: 69 / F ADM Date: 12/28/24 Loc: CR Attending Dr: SANDEEP PELLETIER Ordering Physician: Misael Campos D.O. Date of Service: 12/29/24 Procedure(s): ITP Accession Number(s): [id number] cc: [facility] Test Date: 2024-12-29 Pat Name: SHRUTHI PRICE Department: Room: - Gender: Female Supervisor Framing Mill: : 1955 Requ ested By: Misael Campos Order Number: [id number] Reading MD: Misael Campos Interpretive Statements Okay to proceed with outlined treatment plan. Electronically Mily d On 12-29-2024 9:17:12 EDT by Misael Campos Dictated By: Misael Campos D.O. Signed By: 12/29/2491612/29/24916 DD/ 4 TD/TT: Trouble Operator: JADIEL Reviewed date:12/30/2024 06:23:47 PM Interpretation: Performing Lab: Notes/Report: Source Facility: [place] [address] [place] [address] Cardiac Rehab Report Signed Patient: SHRUTHI NIX MR#: [id number] : 1955 Acct:[id number] Age/Sex: 69 / F ADM Date: 12/29/24 Loc: CR Attending Dr: SANDEEP PELLETIER Ordering Physician: SANDEEP PELLETIER Date of Service: 12/29/24 Procedure(s): ITP Accession Number(s): [id number] cc: [facility] Test Date: 2024-12-29 Pat Name: SHRUTHI NIX Department: Room: - Gender: Female Supervisor Framing Mill: : 1955 Requested By: SANDEEP PELLETIER M.D. Order Number: [id number] Lizeth MD: Misael Campos Interpretive Statements Okay to proceed with outlined treatment plan. Electronically Signed On 12-30-2024 10:04:19 EDT by Misael Campos Dictated By: Misael Campos D.O. Signed By: 12/30/24 1004 12/30/24 100 DD/ 135 TD/TT: Trouble Operator: [place] [address] Cardiac Rehab Report Signed Patient: SARTHAK NIX MR#: [id number] : 1955 Acct:[id number] Age/Sex: 69 / F ADM Date: 12/29/24 Loc: CR Attending Dr: SANDEEP PELLETIER Ordering Physician: SANDEEP PELLETIER Date of Service: 12/29/24 Procedure(s): ITP Accession Number(s): [id number] cc: [facility] Test Date: 2024-12-29 Pat Name: SHRUTHI PRICE Department: Room: - Gender: Female Supervisor Framing Mill: : 1955 Req uested By: SANDEEP PELLETIER M.D. Order Number: [id number] Lizeth MD: Misael Campos Interpretive Statements Okay to proceed with outlined treatment plan. Electronically Mily d On 12-30-2024 10:04:19 EDT by Misael Campos Dictated By: Misael Campos D.O. Signed By: 12/30/24 1004 12/30/24 100 DD/ 1359 TD/TT: Trouble Operator: JADIEL Reviewed date:04/04/2025 02:37:00 PM Interpretation: Performing Lab: Notes/Report: Source Facility: [address] [place] [address] Cardiac Rehab Report Signed Patient: SHRUTHI NIX MR#: [id number] : 1955 Acct:[id number] Age/Sex: 69 / F ADM Date: 03/30/25 Loc: CR Attending Dr: SANDEEP PELLETIER Ordering Physician: SANDEEP PELLETIER Date of Service: 03/24/25 Procedure(s): ITP Accession Number(s): [id number] cc: [facility] Test Date: 2025-03-24 Pat Name: SHRUTHI NIX Department: Room: - Gender: Female Supervisor Framing Mill: : 1955 Requested By: SANDEEP PELLETIER M.D. Order Number: [id number] Lizeth MD: Alyson Del Angel Interpretive Statements Session Date: Electronically Signed On 04-01-2025 13:28:16 EDT by Alyson Del Angel Dictated By: Alyson Del Angel M.D. Signed By: 04/01/25 1328 04/01/25 1328 DD/ 0859 TD/TT: Trouble Operator: [place] [address] Cardiac Rehab Report Signed Patient: SARTHAK NIX MR#: [id number] : 1955 Acct:[id number] Age/Sex: 69 / F ADM Date: 03/30/25 Loc: CR Attending Dr: SANDEEP PELLETIER Ordering Physician: SANDEEP PELLETIER Date of Service: 03/24/25 Procedure(s): ITP Accession Number(s): [id number] cc: [facility] Test Date: 2025-03-24 Pat Name: SHRUTHI PRICE Department: Room: - Gender: Female Supervisor Framing Mill: : 1955 Req uested By: SANDEEP PELLETIER M.D. Order Number: [id number] Lizeth MD: Alyson Del Angel Interpretive Statements Session Date: Electronically Mily d On 04-01-2025 13:28:16 EDT by Alyson Del Angel Dictated By: Alsyon Del Angel M.D. Signed By: 04/01/25 1328 04/01/25 1328 DD/ 0859 TD/TT: Trouble Operator: JADIEL Reviewed date:03/13/2025 08:19:52 PM Interpretation: Performing Lab: Notes/Report: Source Facility: [place] [address] [place] [address] Cardiac Rehab Report Signed Patient: SHRUTHI NIX MR#: [id number] : 1955 Acct:[id number] Age/Sex: 69 / F ADM Date: 02/24/25 Loc: CR Attending Dr: SANDEEP PELLETIER Ordering Physician: Earl Desir M.D. Date of Service: 02/23/25 Procedure(s): ITP Accession Number(s): [id number] cc: [facility] Test Date: 2025-02-23 Pat Name: SHRUTHI NIX Department: Room: - Gender: Female Supervisor Framing Mill: : 1955 Requested By: EARL DESIR Order Number: [id number] Lizeth MD: SANDEEP PELLETIER M.D. Interpretive Statements Patient may continue cardiac rehab as outlined in the treatment plan. Electronically Signed On 03-11-2025 10:18:54 EDT by SANDEEP PELLETIER M.D. Dictated By: SANDEEP PELLETIER Signed By: 03/11/25 1019 03/11/25 1019 DD/ 1112 TD/TT: Trouble Operator: [place] [address] Cardiac Rehab Report Signed Patient: SARTHAK NIX MR#: [id number] : 1955 Acct:[id number] Age/Sex: 69 / F ADM Date: 02/24/25 Loc: CR Attending Dr: SANDEEP PELLETIER Ordering Physician: Earl Desir M.D. Date of Service: 02/23/25 Procedure(s): ITP Accession Number(s): [id number] cc: [facility] Test Date: 2025-02-23 Pat Name: SHRUTHI PRICE Department: Room: - Gender: Female Supervisor Framing Mill: : 1955 Requ ested By: EARL DESIR Order Number: [id number] Lizeth MD: SANDEEP PELLETIER M.D. Interpretive Statements Patient may continue cardiac rehab as outlined in the treatment plan. Electronically Mily d On 03-11-2025 10:18:54 EDT by SANDEEP PELLETIER M.D. Dictated By: SANDEEP PELLETIER Signed By: 03/11/25 1019 03/11/25 1019 DD/ 1112 TD/TT: Trouble Operator: JADIEL Reviewed date:01/27/2025 04:04:47 PM Interpretation: Performing Lab: Notes/Report: Source Facility: [place] [address] [place] [address] Cardiac Rehab Report Signed Patient: SHRUTHI NIX MR#: [id number] : 1955 Acct:[id number] Age/Sex: 69 / F ADM Date: 01/27/25 Loc: CR Attending Dr: SANDEEP PELLETIER Ordering Physician: Misael Campos D.O. Date of Service: 01/27/25 Procedure(s): ITP Accession Number(s): [id number] cc: [facility] Test Date: 2025-01-27 Pat Name: SHRUTHI NIX Department: Room: - Gender: Female Supervisor Framing Mill: : 1955 Requested By: Misael Campos Order Number: [id number] Lizeth MD: Misael Campos Interpretive Statements Okay to continue with outlined treatment plan. Electronically Signed On 01-27-2025 15:33:50 EDT by Misael Campos Dictated By: Misael Campos D.O. Signed By: 01/27/25 1534 01/27/25 1534 DD/ 0911 TD/TT: Trouble Operator: [place] [address] Cardiac Rehab Report Signed Patient: SARTHAK NIX MR#: [id number] : 1955 Acct:[id number] Age/Sex: 69 / F ADM Date: 01/27/25 Loc: CR Attending Dr: SANDEEP PELLETIER Ordering Physician: Misael Campos D.O. Date of Service: 01/27/25 Procedure(s): ITP Accession Number(s): [id number] cc: [facility] Test Date: 2025-01-27 Pat Name: SHRUTHI PRICE Department: Room: - Gender: Female Supervisor Framing Mill: : 1955 Requ ested By: Misael Campos Order Number: [id number] Reading MD: Misael Campos Interpretive Statements Okay to continue wit h outlined treatment plan. Electronically Mily d On 01-27-2025 15:33:50 EDT by Misael Campos Dictated By: Misael Campos D.O. Signed By: 01/27/25 1534 01/27/25 1534 DD/ TD/TT: Trouble Operator: Reason For Referral No Information Medications Medication SIG (Take, Route, Frequency, Duration) Notes Start Date End Date Status Cyclobenzaprine HCl 10 MG 1 tablet Orally tid for 30 days 04/06/2025 Active Aspirin 81 MG 1 tablet Orally Once a day Active Atorvastatin Calcium 20 MG 1 tablet Orally Once a day for 30 days 12/17/2024 Active Tylenol Extra strength Activ e Protonix 40 MG 1 tablet Orally Once a day for 30 days 07/23/2024 Active Metoprolol Tartrate 25 MG 1 tablet with food Orally Twice a day 12/15/2024 Active Ibuprofen 600 MG 1 tablet with food or milk as needed Orally every 8 hrs 04/06/2025 Active Clopidogrel Bisulfate 75 MG 1 tablet Orally Once a day 12/15/2024 Active Cetirizine HCl 10 MG 1 tablet Orally Once a day for 30 days 12/15/2024 Active Hyoscyamine Sulfate 0.125 MG 1-2 [...] Problem Status W/U Status Risk Notes Problem Abdominal pain (45142074) Abdominal pain (R10.9) Active confirmed Problem Hypertension (78302226) Hypertension (I10) Active confirmed Problem Gastroesophageal reflux disease (211399550) GERD (gastroesophage al reflux disease) (K21.9) Active confirmed Problem Coronary artery disease (35367973) Coronary artery disease (I25.10) Active confirmed Problem 159505739 Hammertoe of left foot (M20.42) Active confirmed Vital Signs Oximetry 99 % 11/11/2024 Blood pressure diastolic 82 mm Hg 04/06/2025 Height 64 in 04/06/2025 Blood pressure systolic 144 mm Hg 04/06/2025 Weight 139.0 lbs 04/06/2025 BMI 23.86 kg/m2 04/06/2025 Procedures Procedure Date Ordered Date Performed Result Body Sit e *CARDIO Stress Test - Treadmill Exercise 11/11/2024 N/A Encounters Encounter Location Date Provider Diagnosis [address] [address] 11/11/2024 Emil Hoy Chest pain R07.[address] [address] 07/23/2024 Emil Hoy GERD (gastroesophage al reflux disease) K21.9 and Abdominal pain R10.[address] [address] 12/15/2024 Emil Hoy Coronary artery dise ase I25.10 and Status post coronary artery bypass grafting Z95.[address] [address] 04/06/2025 Emil Hoy GERD (gastroesophage al reflux disease) K21.9 ; Coronary artery disease I25.10 and Hypertension I10 [address] [address] 11/11/2024 Emil Terry [facility] [address] [place] [address] 11/24/2024 Emil Terry [facility] [address] [place] [address] 12/09/2024 Emil Terry [facility] [address] [place] [address] 12/15/2024 Emil Terry [facility] [address] [place] [address] 02/02/2025 Emil Terry Assessments Encounter Date Diagnosis (ICD Code) Assessment Notes Treatment Notes Treatment Clinical Notes Section Notes 07/23/2024 GERD (gastroesophageal reflux disease) (ICD-10 - K21.9) 07/23/2024 Abdominal pain (ICD-10 - R10.9) 11/11/2024 Chest pain (ICD-10 - R07.9) 12/15/2024 Coronary artery disease (ICD-10 - I25.10) 12/15/2024 Status post coronary artery bypass grafting (ICD-10 - Z95.1) 04/06/2025 GERD (gastroesophageal reflux disease) (ICD-10 - K21.9) 04/06/2025 Coronary artery disease (ICD-10 - I25.10) 04/06/2025 Hypertension (ICD-10 - I10) 11/11/2024 Other Discussed increasing physical exercise and continuing/impl ementing a healthier diet. Plan Of Treatment Pending Test Test Name Order Date *CARDIO Stress Test - Treadmill Exercise 11/11/2024 Next Appt Details Provider Name:Emil Terry, 02:30:00 PM, [address] [place], [address], Insurance Providers Payer Name Payer Address Payer Phone Subscriber Number Group Number Insured Name Patient Relationship to Insured Coverage Start Date Coverage End Date [employer] ACCESS PPO PLUS LOCAL PLAN [address] [place] [phone] [id number] Shruthi Nix Self - patient is the insured Medications Administered Medication Instructions Date of Administration Dosage Notes Kenalog-40 10/31/2022 0.5 mL Lidocaine HCl 10/31/2022 0.5 mL Medical (General) History Medical History History ICD Code Contusion of left lower leg, initial enc ounter S80.12XA Foot pain M79.673 Peroneal tendinitis, left M76.72 Sprain of foot, left, initial encounter S93.602A Surgical History Surgery Date(Month/Year) back surgery Coronary Angiogrpahy- IABP insertion CABG x3 eyelid lift
--- OUTSIDE RECORDS SUMMARY | 2025-04-08 07:35 | XMS_ITS | Encounter Summary ---
Author Organization [facility] Address [address] [place] [address] Care Team Providers Care Sugar Mixer Name Role Phone Shaikh DIANE Guardado Primary Care Provider [phone] Juan Contreras MD Primary Care Provider [phone] Janel Coughlin NP Unavailable [phone] Shaikh DIANE Guardado Unavailable [phone] Encounter Details Date Type Department Care [...] Dermatology [address] [place] [address] China Armstrong MD [address] [place] [address] documented as of this encounter Procedures Procedure Name Priority Date/Time Associated Diagnosis Comments VC EXT VENOUS REFLUX AYUSH LMTD 02/19/2024 4:25 PM EDT documented in this encounter Results * VC EXT VENOUS REFLUX AYUSH LMTD (02/19/2024 4:25 PM EDT) Anatomical Region Laterality Modality Other 02/19/2024 4:25 PM EDT Narrative 02/19/2024 4:27 PM EDT [address] [address] Vein Report Signed Patient: SHRUTHI NIX MR#: [id number] : 1955 Acct:[id number] Age/Sex: 68 / F ADM Date: 02/19/24 Loc: VC Attending Dr: Hayde Duran M.D. Ordering Physician: Hayde Duran M.D. Date of Service: 02/19/24 Procedure(s): VC EXT Venous Reflux AYUSH LMTD Accession Number(s): [id number] cc: Shaikh Mabel Guardado; Hayde Duran M.D. Patient Name: SHRUTHI NIX MR#: [id number] : 1955 Exam Date: 02/19/2024 Ordering Doctor: DR HAYDE DURAN M.D. RADIOLOGY REPORT PROCEDURE: VC EXT VENOUS REFLUX AYUSH LMTD COMPARISON: None. INDICATIONS: I83.813 Bilateral painful varicose veins TECHNIQUE: Duplex imaging of the lower extremity to assess the deep and superficial venous system for the presence of deep or superficial venous incompetence and to document the location and severity of disease. The study includes evaluation of the great saphenous vein (GSV), anterior accessory saphenous vein (AASV) and small saphenous vein (SSV). Patient scanned in reverse Trendelenburg and standing. FINDINGS: RIGHT LOWER EXTREMITY: Saphenofemoral Junction Reflux: Yes 6.5mm 2.0 sec GSV: Diam (mm) Reflux/ Time (sec) Proximal Thigh 5.7 Yes 2.0 Mid Thigh 4.2 Yes 0.5 Distal Thigh 3.6 Yes 1.1 Prox Calf 3.2 Yes 0.6 Mid Calf 2.1 Yes 0.9 Saphenopopliteal Junction Reflux: 2.2mm Yes 1.1 SSV: Proximal Calf 1.7 No Mid Calf 2.1 No AASV: Proximal Thigh Mid Thigh Distal Thigh Thrombi: No acute or chronic thrombus visualized Compressibility: Normal Flow: Normal Preforator: Dist/med calf 3.1mm with 0s reflux. Tech Note: Incompetent GSV. Patent varicose vein mid/med calf 3.5mm with 1.0s reflux. Patent varicose vein medial knee 3.3mm with 0s reflux. Patent varicose vein prox/med thigh 2.9mm with 1.2s reflux. LEFT LOWER EXTREMITY: Saphenofemoral Junction Reflux: Yes 7.9 mm 1.6 sec GSV: Diam (mm) Reflux/Time (sec) Proximal Thigh 6.9 Yes 1.2 Mid Thigh 3.9 Yes 1.0 Distal Thigh 3.8 Yes 1.2 Prox Calf 3.8 No Mid Calf 1.5 No Saphenopopliteal Junction Relux: 2.6 mm No SSV: Proximal Calf 0.8 N/A Mid Calf N/A AASV: Not present Proximal Thigh Mid Thigh Distal Thigh Thrombi: No acute or chronic thrombus visualized Compressibility: Normal Flow: Normal Forensic Manager: No perforators visualized. Tech Note: Incompetent GSV. Patent varicose vein medial knee 3.5mm with 1.1s reflux. CONCLUSION: 1. 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 Dictated by: Rajeev Beyer M.D. on 02/19/2024 at 15:39 Approved by: Rajeev Beyer M.D. on 02/19/2024 at 16:25 Dictated By: Rajeev Beyer M.D. Signed By: 02/19/24 1627 DD/ 1625 TD/TT: Clerical Assistant: Procedure Note Radiology, Radiologist, MD - 02/19/[address] [address] Vein Report Signed Patient: SHRUTHI NIX LMR#: [id number] : 5Acct:[id number] Age/Sex: 68 / FADM Date: 02/19/24 Loc: VC Attending Dr: Hayde Duran M.D. Ordering Physician: Hayde Duran M.D. Date of Service: 02/19/24 Procedure(s): VC EXT Venous Reflux AYUSH LMTD Accession Number(s): [id number] cc: Shaikh Mabel Guardado; Hayde Duran M.D. Patient Name: SHRUTHI NIX MR#: [id number] : 1955 Exam Date: 02/19/2024 Ordering Doctor: DR HAYDE DURAN M.D. RADIOLOGY REPORT PROCEDURE: VC EXT VENOUS REFLUX AYUSH LMTD COMPARISON: None. INDICATIONS: I83.813 Bilateral painful varicose veins TECHNIQUE: Duplex imaging of the lower extremity to assess the deepand superficial venous system for the presence of deep or superficial venous incompetence and to document the location and severity of disease. Thestudy includes evaluation of the great saphenous vein (GSV), anterior accessory saphenous vein (AASV) and small saphenous vein (SSV). Patient scanned in reverse Trendelenburg and standing. FINDINGS: RIGHT LOWER EXTREMITY: Saphenofemoral Junction Reflux: Yes 6.5mm 2.0 sec GSV: Diam (mm) Reflux/ Time (sec) Proximal Thigh 5.7 Yes 2.0 Mid Thigh 4.2 Yes 0.5 Distal Thigh 3.6 Yes 1.1 Prox Calf 3.2 Yes 0.6 Mid Calf 2.1 Yes 0.9 Saphenopopliteal Junction Reflux: 2.2mm Yes 1.1 SSV: Proximal Calf 1.7 No Mid Calf 2.1 No AASV: Proximal Thigh Mid Thigh Distal Thigh Thrombi: No acute or chronic thrombus visualized Compressibility: Normal Flow: Normal Preforator: Dist/med calf 3.1mm with 0s reflux. Tech Note: Incompetent GSV. Patent varicose vein mid/med calf 3.5mm with1.0s reflux. Patent varicose vein medial knee 3.3mm with 0s reflux. Patentvaricose vein prox/med thigh 2.9mm with 1.2s reflux. LEFT LOWER EXTREMITY: Saphenofemoral Junction Reflux: Yes 7.9 mm 1.6 sec GSV: Diam (mm) Reflux/Time (sec) Proximal Thigh 6.9 Yes 1.2 Mid Thigh 3.9 Yes 1.0 Distal Thigh 3.8 Yes 1.2 Prox Calf 3.8 No Mid Calf 1.5 No Saphenopopliteal Junction Relux: 2.6 mm No SSV: Proximal Calf 0.8 N/A Mid Calf N/A AASV: Not present Proximal Thigh Mid Thigh Distal Thigh Thrombi: No acute or chronic thrombus visualized Compressibility: Normal Flow: Normal Forensic Manager: No perforators visualized. Tech Note: Incompetent GSV. Patent varicose vein medial knee 3.5mm with1.1s reflux. CONCLUSION: 1. Abnormally dilated and incompetent great saphenous veins bilaterallywith associated branch saphenous varicosities. Dictated by: Rajeev Beyer M.D. on 02/19/2024 at 15:39 Approved by: Rajeev Beyer M.D. on 02/19/2024 at 16:25 Dictated By: Rajeev Beyer M.D. Signed By:02/19/247 DD/ TD/TT: Clerical Assistant: Generic External Data Provider [facility] Final Result documented in this encounter Visit Diagnoses Not on filedocumented in this encounter Care Teams Sugar Mixer Relationship Specialty Start Date End Date Shaikh Guardado MD [address] [place] [address] PCP - General Internal Medicine 01/22/24 04/27/24 Juan Contreras MD [address] [place] [address] PCP - General Family Medicine 04/28/24 09/07/24 Shaikh Guardado MD [address] [place] [address] PCP - [facility] 10/02/24 Janel Coughlin NP [address] [place] [phone] Nurse Practitioner Family Medicine 04/28/24 09/07/24 documented as of this encounter
[2025-04-08 07:56] LABS: Alanine Aminotransferase 17 U/L (14-59); Albumin Globulin Ratio 1.1; Albumin Level 3.8 g/dL (3.4-5.0); Alkaline Phosphatase 87 U/L (46-116); Aspartate Amino Transferase 14 U/L (15-37); Cholesterol 211 mg/dL (<=200); Globulin 3.5 g/dL; HDL Cholesterol 75 mg/dL (40-60); Total Protein 7.3 g/dL (6.4-8.2); Triglycerides 142 mg/dL (<=150); VLDL CHOLESTEROL 28.4 mg/dL
== END 2025-04-08 07:32 | disposition home or self-care (01) ==
LOC: LAB 07:31
PROVIDERS: PCP Family Medicine; Visit Provider Internal Medicine Interventional Cardiology
DX: I25.10 Atherosclerotic heart disease of native coronary artery without angina pectoris (principal); E78.01 Familial hypercholesterolemia
CPT/HCPCS: 36415; 80061; 80076

== ENCOUNTER 2025-04-25 07:29 | Outpatient (RCR) | payer BC, SELFPAY ==
--- NOTE | 2024-12-29 07:11 | CR1_ITS ---
The [facility] Test Date: 2024-12-29 Pat Name: MICHELE NIX Department: Room: - Gender: Female Dry Ice Maker: : 1955 Requested By: Misael Campos Order Number: [id number] Lizeth MD: Misael Campos Interpretive Statements Okay to proceed with outlined treatment plan. Electronically Signed On 12-29-2024 9:17:12 EDT by Misael Campos
--- NOTE | 2024-12-29 14:10 | CR1_ITS ---
The [facility] Test Date: 2024-12-29 Pat Name: MICHELE NIX Department: Room: - Gender: Female Electrical/Instrument Technician: : 1955 Requested By: SANDEEP PELLETIER M.D. Order Number: [id number] Lizeth MD: Misael Campos Interpretive Statements Okay to proceed with outlined treatment plan. Electronically Signed On 12-30-2024 10:04:19 EDT by Misael Campos
--- NOTE | 2025-01-27 08:11 | CR1_ITS ---
[facility] Test Date: 2025-01-27 Pat Name: MICHELE NIX Department: Room: - Gender: Female Train Gate Attendant: : 1955 Requested By: Misael Campos Order Number: [id number] Lizeth MD: Misael Campos Interpretive Statements Okay to continue with outlined treatment plan. Electronically Signed On 01-27-2025 15:33:50 EDT by Misael Campos
--- NOTE | 2025-02-23 09:17 | CR1_ITS ---
The [facility] Test Date: 2025-02-23 Pat Name: MICHELE NIX Department: Room: - Gender: Female Vice President Of Recruiting: : 1955 Requested By: EARL DESIR Order Number: [id number] Lizeth MD: SANDEEP PELLETIER M.D. Interpretive Statements Patient may continue cardiac rehab as outlined in the treatment plan. Electronically Signed On 03-11-2025 10:18:54 EDT by SANDEEP PELLETIER M.D.
--- NOTE | 2025-03-24 08:41 | CR1_ITS ---
The [facility] Test Date: 2025-03-24 Pat Name: MICHELE NIX Department: Room: - Gender: Female Copyright Clerk: : 1955 Requested By: SANDEEP PELLETIER M.D. Order Number: [id number] Lizeth MD: Alyson Del Angel Interpretive Statements Session Date: Electronically Signed On 04-01-2025 13:28:16 EDT by Alyson Del Angel
--- NOTE | 2025-04-25 08:02 | CR1_ITS ---
[facility] Test Date: 2025-04-25 Pat Name: MICHELE NIX Department: Room: - Gender: Female Dice Maker: : 1955 Requested By: SANDEEP PELLETIER M.D. Order Number: [id number] Lizeth MD: SANDEEP PELLETIER M.D. Interpretive Statements Patient may continue cardiac rehab as outlined in the treatment plan. Electronically Signed On 04-25-2025 17:20:18 EDT by SANDEEP PELLETIER M.D.
--- NOTE | 2025-05-13 07:20 | PC.NURSE ---
Short term outreach letter sent at this time. Will reach out to patient prior to the end of next month to follow up if we have not heard from her.
--- NOTE | 2025-05-24 13:02 | CR1_ITS ---
[facility] Test Date: 2025-05-24 Pat Name: MICHELE NIX Department: Room: - Gender: Female Thermal Surfacing Machine Operator: : 1955 Requested By: SANDEEP PELLETIER M.D. Order Number: [id number] Lizeth MD: SANDEEP PELLETIER M.D. Interpretive Statements Patient may continue cardiac rehab as outlined in the treatment plan. Electronically Signed On 05-24-2025 20:03:23 EDT by SANDEEP PELLETIER M.D.
--- NOTE | 2025-06-01 14:29 | PC.NURSE ---
[facility] outreach letter sent. pt will be discharged from phase 2 rehab if no response by 06-23-25. we hope to hear from her and for her to return for her remaining visits.
--- NOTE | 2025-06-17 07:29 | CR1_ITS ---
[facility] Test Date: 2025-06-17 Pat Name: MICHELE NIX Department: Room: - Gender: Female Bottom Finisher: : 1955 Requested By: SANDEEP PELLETIER M.D. Order Number: [id number] Lizeth MD: SANDEEP PELLETIER M.D. Interpretive Statements Electronically Signed On 06-17-2025 19:19:22 EST by SANDEEP PELLETIER M.D.
== END 2025-06-17 07:27 | disposition home or self-care (01) ==
LOC: CR 07:29
PROVIDERS: PCP Family Medicine; Visit Provider Internal Medicine Interventional Cardiology
DX: I25.10 Atherosclerotic heart disease of native coronary artery without angina pectoris (principal); Z95.1 Presence of aortocoronary bypass graft
CPT/HCPCS: 93798

== ENCOUNTER 2025-07-13 09:54 | Outpatient (OUT) | payer BC, SELFPAY ==
[2025-07-13 10:29] LABS: Hematocrit 39.9 % (36.0-48.0); Hemoglobin 12.9 g/dL (12.0-16.0); Immature Granulocytes Abs Auto 0.01 10^3/uL (0.00-0.03); Immature Granulocytes Pct Auto 0.2 % (0.0-0.5); Lymphocytes Absolute Auto 2.3 10^3/uL (1.2-3.8); Mean Corpuscular HGB Conc 32.3 g/dL (29.9-35.2); Mean Corpuscular Hemoglobin 28.4 pg (26.7-34.0); Mean Corpuscular Volume 87.9 fL (81.0-99.0); Platelet Count 334 10^3/uL (150-450); Red Blood Count 4.54 10^6/uL (4.20-5.40); White Blood Count 6.2 10^3/uL (4.0-11.0)
[2025-07-13 11:14] LABS: Alanine Aminotransferase 15 U/L (14-59); Albumin Globulin Ratio 1.1; Albumin Level 3.6 g/dL (3.4-5.0); Alkaline Phosphatase 84 U/L (46-116); Anion Gap 7.4; Aspartate Amino Transferase 12 U/L (15-37); Blood Urea Nitrogen 12.0 mg/dL (7.0-18.0); Calcium 9.2 mg/dL (8.5-10.1); Carbon Dioxide 34.0 mmol/L (21.0-32.0); Chloride 103 mmol/L (98-107); Cholesterol 157 mg/dL (<=200); Estimated GFR (African America >60 (>=60 mL/min/1.73m^2); Estimated GFR (Non-African Ame >60 (>=60 mL/min/1.73m^2); Globulin 3.2 g/dL; Glucose 91 mg/dL (74-106); HDL Cholesterol 61 mg/dL (40-60); Potassium 4.4 mmol/L (3.5-5.1); Sodium 140 mmol/L (136-145); Total Protein 6.8 g/dL (6.4-8.2); Triglycerides 167 mg/dL (<=150); VLDL CHOLESTEROL 33.4 mg/dL
== END 2025-07-13 09:55 | disposition home or self-care (01) ==
LOC: LAB 09:55
PROVIDERS: PCP Family Medicine; Visit Provider Internal Medicine Interventional Cardiology
DX: I25.10 Atherosclerotic heart disease of native coronary artery without angina pectoris (principal); E78.019 Familial hypercholesterolemia, unspecified
CPT/HCPCS: 36415; 80053; 80061; 85025